=== PATIENT | female | born 1975 | race Caucasian/White ===

== ENCOUNTER → 2017-10-05 07:11 | Outpatient (CLI) | payer MEDICARE, MEDICAID, SELFPAY ==
[2017-09-09 12:45] VITALS: BMI 37.3
--- NOTE | 2017-10-05 | DI.MRI.S_ITS ---
PROCEDURE: MR LUMBAR SPINE WO CON INDICATIONS: LOW BACK PAIN AND RIGHT LEG SCIATICA TECHNIQUE: Noncontrast sagittal T1 spin echo and T2 fast echo, sagittal STIR, axial T1 and T2 fast spin echo through the lumbar spine. In cases with scoliosis, additional coronal T2 fast spin echo may be performed. COMPARISON: [facility], CR, SPINE LUMB 2 OR 3VW, 01/01/2016, 9:02. [facility], MR, L-SPINE WITHOUT CONTRAST, 06/15/2017, 15:07. [facility], CR, XR LUMBAR SPINE 2 OR 3 VIEWS, 09/23/2017, 15:40. [facility], CR, XR LUMBAR SPINE 2-3V, 09/09/2017, 8:48. FINDINGS: Image quality: Excellent. Alignment and Curvature: There is normal bony alignment. Bone Marrow: There is an intraosseous hemangioma in L3. No acute vertebral body compression fractures. There are surgical fusions at L4-L5 and L5-S1 Spinal Cord: Conus medullaris terminates at the L1-L2 level. Visualized cord demonstrates normal signal and size. Paraspinous Soft Tissues: No paravertebral masses. L1-L2: Normal appearance. L2-L3: Preserved disc height. Mild disc desiccation. There is mild broad posterior disc bulge. The central canal is minimally. Mild foraminal stenosis bilaterally, unchanged. L3-L4: Is it disc height and disc signal. There is mild posterior disc bulge. Mild bilateral facet arthropathy and hypertrophy of ligamentum flavum. The central canal is patent. No significant foraminal stenosis. No significant change. L4-L5: Discectomy and posterior fusion. No central canal stenosis. Minimal bilateral foraminal stenosis, changed. L5-S1: Discectomy and posterior fusion. No central canal stenosis. Minimal bilateral foraminal stenosis, changed. Sacrum: Fusion screws traversing the sacrum. The sacral plexus is normal. IMPRESSION: 1. Multilevel degenerative and postsurgical changes in the lumbar spine as described. 2. Minimal central canal stenosis at L2-L3, unchanged. 3. Mild foraminal stenosis at L2-L3 bilaterally, unchanged. Dictated by: Darya Lewis M.D. on 10/05/2017 at 8:26 Transcribed by: EZIO on 10/05/2017 at 8:34 Approved by: Darya Lewis M.D. on 10/05/2017 at 9:49
== END ==
PROVIDERS: PCP Family Medicine; Visit Provider Orthopaedic Surgery Orthopaedic Surgery of the Spine
DX: M54.40 Lumbago with sciatica, unspecified side (principal); M51.36 Other intervertebral disc degeneration, lumbar region
CPT/HCPCS: 72148

== ENCOUNTER → 2018-01-21 07:29 | Outpatient (CLI) | payer MEDICARE, MEDICAID, SELFPAY ==
[2017-09-09 12:45] VITALS: BMI 37.3
--- NOTE | 2018-01-21 | DI.MG.S_ITS ---
BILATERAL DIGITAL SCREENING MAMMOGRAM 3D/2D WITH CAD: 01/21/2018 CLINICAL: Baseline exam. Routine screening. Family history of breast cancer. No prior exams were available for comparison. The tissue of both breasts is heterogeneously dense. This may lower the sensitivity of mammography. Current study was also evaluated with a Computer Aided Detection (CAD) system. There is an oval equal density asymmetry with an obscured and indistinct margin in the left breast at 5 o'clock posterior depth. No other significant masses, calcifications, or other findings are seen in either breast. IMPRESSION: INCOMPLETE: NEEDS ADDITIONAL IMAGING EVALUATION The oval equal density asymmetry in the left breast is indeterminate. Mediolateral and spot compression views as well as additional views with possible ultrasound are recommended. This exam was interpreted at Station ID: [id number]. NOTE: For mammograms, a report in lay terms will be sent to the patient. Approximately 15% of breast malignancies will not be visualized mammographically. In the management of a palpable breast mass, a negative mammogram must not discourage biopsy of a clinically suspicious lesion. Electronically Signed By: Cole herrera/nae:01/21/2018 10:23:41 letter sent: Additional Imaging Needed ACR BI-RADS Category 0: Incomplete 3340F
== END ==
PROVIDERS: PCP Family Medicine; Visit Provider Family Medicine
DX: Z12.31 Encounter for screening mammogram for malignant neoplasm of breast (principal); Z80.3 Family history of malignant neoplasm of breast
CPT/HCPCS: 77063; 77067

== ENCOUNTER → 2018-02-03 12:42 | Outpatient (CLI) | payer MEDICARE, MEDICAID, SELFPAY ==
[2017-09-09 12:45] VITALS: BMI 37.3
--- NOTE | 2018-02-03 | DI.MG.S_ITS ---
UNILATERAL LEFT DIGITAL DIAGNOSTIC MAMMOGRAM 3D/2D WITH ADDITIONAL VIEWS: 02/03/2018 CLINICAL: Additional evaluation requested from prior study. Comparison is made [facility] The tissue of left breast is heterogeneously dense. This may lower the sensitivity of mammography. There is 1 cm oval equal density asymmetry with an indistinct margin in the left breast at 6 o'clock posterior depth. No other significant masses or calcifications are seen in the breast. IMPRESSION: INCOMPLETE: NEEDS ADDITIONAL IMAGING EVALUATION The 1 cm oval equal density asymmetry in the left breast is indeterminate. An ultrasound is recommended. This exam was interpreted at Station ID: [id number]. NOTE: For mammograms, a report in lay terms will be sent to the patient. Approximately 15% of breast malignancies will not be visualized mammographically. In the management of a palpable breast mass, a negative mammogram must not discourage biopsy of a clinically suspicious lesion. Electronically Signed By: Cole herrera/nae:02/03/2018 14:07:42 letter sent: Need Ultrasound ACR BI-RADS Category 0: Incomplete [id number]
--- NOTE | 2018-02-03 | DI.US.S_ITS ---
LIMITED ULTRASOUND OF LEFT BREAST: 02/03/2018 CLINICAL: Patient returns today to evaluate a density in the left breast. Comparison is made to exams dated: 02/03/2018 mammogram and 01/21/2018 mammogram - [facility]. Color flow and real-time ultrasound of the left breast 5-6 o'clock region were performed on the areas of interest. There is 0.6 cm x 0.3 cm x 0.3 cm irregular complicated cyst in the left breast at 5 o'clock middle depth. This irregular complicated cyst is hypoechoic with internal echoes and posterior acoustic enhancement. This correlates with mammography findings. Color flow imaging demonstrates that there is no vascularity present. IMPRESSION: PROBABLY BENIGN The 0.6 cm x 0.3 cm x 0.3 cm irregular complicated cyst in the left breast is consistent with a complicated cyst and is probably benign. Follow-up mammogram and ultrasound in 6 months is recommended. A follow-up mammogram and an ultrasound in 6 months is recommended to demonstrate stability. This exam was interpreted at Station ID: [id number]. Electronically Signed By: Cole herrera/nae:02/03/2018 16:55:55 letter sent: Followup Recommended Ultrasound BI-RADS: 3 Probably benign
== END ==
PROVIDERS: PCP Family Medicine; Visit Provider Family Medicine
DX: R92.8 Other abnormal and inconclusive findings on diagnostic imaging of breast (principal)
CPT/HCPCS: 76642; 77065; G0279

== ENCOUNTER 2018-02-15 07:53 | Day surgery (SDC) | payer MEDICARE, MEDICAID, SELFPAY ==
[2017-09-09 12:45] VITALS: BMI 37.3
--- NOTE | 2018-02-15 | PATH_ITS ---
[facility] Accession Number: [id number] . 01 Material submitted: . TRANSVERSE COLON POLYP @60CM . 02 Diagnosis: Transverse Colon, Polyp at 60 cm, Biopsy: Serrated lesion, favor sessile serrated adenoma. MRV/02/16/2018 . 02 Electronically signed: . Lucinda Oliver MD, Pathologist NPI- [id number] . 01 Gross description: . Received in one formalin-filled container labeled with the patient's name and labeled transverse colon polyp at 60 cm, are two 0.1-0.2 cm portions of tissue, entirely submitted in one cassette. ([id number]) /FRR . 02 Pathologist provided ICD-10: D12.3 . 02 CPT . 177275 Performed at: 01 [facility] [address] [id number] MD Cole Del Valle MD Phone: [phone] Performed at: 02 [facility] [place] [address] [place], [place] [id number] MD Galen Weber MD Phone: [phone]
[2018-02-15 08:43] VITALS: BP 154/87; PULSE 94; RESP 16; TEMP 36.7; O2SAT 97; BMI 32.8
[2018-02-15] MEDS: SODIUM CHLORIDE 0.9% 1,000 ML 200 ML IV (08:50)
[2018-02-15] MEDS: MIDAZOLAM 5 MG/5 ML VIAL IV (09:11)
[2018-02-15] MEDS: fentaNYL 250 MCG/5 ML INJ IV (09:12)
--- NOTE | 2018-02-15 09:47 | PM.OP.ENDO ---
Operative Date/Time/Diagnoses Date of procedure: 02/15/18 Time of procedure: 09:47 Post-op diagnosis: other (Colon polyp but otherwise normal colon and rectum) Procedure & Clinicians Study performed: 1. Sedation per surgeon 2. Colonoscopy with cold forceps polypectomy Same procedure as scheduled: Yes Indications: 42-year-old female with family history of colon cancer in her father diagnosed in his 50s, and she presents for colorectal screening today. Her last colonoscopy was 5 years ago. Colonoscopy is once again recommended. Surgeon: Adam Garcia Procedure Notes SCOAP/Timeout: Yes Procedure in detail: After obtaining informed consent, the patient was brought to the GI suite and placed in the left lateral decubitus position on the examination table. After placement of appropriate monitors, the patient was given incremental doses of Versed and Fentanyl until an appropriate level of sedation was achieved. A time out was held per SCOAP protocol. A digital rectal examination was performed and did not reveal any masses or obstructing lesions. The colonoscope was gently passed into the patient's anus and the entire colon navigated to the level of the cecum with minimal difficulty. Terminal ileum was intubated and noted to be grossly normal. Once in the cecum, the scope was withdrawn being sure to go before and beyond all mucosal folds and prominences and get an excellent examination. The findings are noted above. At the level of the rectal vault, the scope was retroflexed and the internal anal canal was examined. The scope was straightened and air aspirated from the colon. The instrument was removed from the patient's body and the procedure was concluded. The patient was allowed to awaken from sedation without difficulty and taken to the post-anesthesia care unit in good condition. Scope withdrawal time: 7:19 min Sedation minutes: 17 Findings: polyp Specimen(s): other (Transverse colon polyp at 60 cm) Complications: none Recommendations: Colonscopy in 5 years, High fiber diet and Will call with biopsy results Plan for aftercare: 1. Discharge home Follow up: as needed Disposition: PACU
[2018-02-15 09:51] VITALS: TEMP 36.8
--- NOTE | 2018-02-15 09:51 | PM.HP.1 ---
History of Present Illness Date Patient Seen: 02/15/18 Time Patient Seen: 09:51 Chief complaint: [id number] SCREENING COLONOSCOPY Narrative: Please note this history physical examination is a late entry. Actual document was done earlier this morning, but was inadvertently entered on the wrong patient chart. Correct patient is a 42-year-old female with family history in her father of colon cancer. He was diagnosed and treated for the disease in his early 50s. Patient has had prior colonoscopy. Most recent exam was 5 years ago. Patient is a relatively poor historian, and I do not have the records from that procedure. Her previous colonoscopies have all been performed at an outlying institution. She is uncertain whether she has personal history of colon polyps. Currently she denies any nausea, vomiting, loss of appetite, unexplained weight loss, abdominal pain, change in bowel habits, diarrhea, constipation, melena, hematochezia, or bright red blood per rectum. Patient History Medical History Bipolar 1 disorder, depressed, mild (Acute) Charcot Belkis Tooth muscular atrophy (Acute) Smoker (Acute) Surgical History History of bladder surgery (Acute) History of hysterectomy (Acute) History of laminectomy (Acute) S/P foot surgery, left (Acute) S/P foot surgery, right (Acute) Family & Social History Family History: Reviewed 02/15/18 by Adam Garcia MD Social History: household members spouse Tobacco & Substance use: Tobacco type cigarettes Smoking Status Current every day smoker alcohol intake frequency a few times a week Substance Use Type marijuana,prescription drug Meds Home Medications Medication Instructions Recorded Confirmed Type albuterol sulfate [Ventolin HFA] 2 puff INHALATION Q4-6H PRN 08/12/17 02/15/18 History bupropion HCl [Wellbutrin SR] 150 mg PO DAILY 08/12/17 02/15/18 History pregabalin [Lyrica] 150 mg PO TID 08/12/17 02/15/18 History acetaminophen 325 mg PO Q6HR PRN #0 tab 09/10/17 02/15/18 Rx fluoxetine [Prozac] 20 mg PO DAILY 02/15/18 02/15/18 History propranolol 10 mg PO BID 02/15/18 02/15/18 History Allergies Allergy/AdvReac Type Severity Reaction Status Date / Time codeine [CODEINE] Allergy Intermediate Itching Verified 02/15/18 08:53 oxycodone [OXYCODONE] Allergy Mild NAUSEA Verified 02/15/18 08:53 Review of Systems Review of Systems All systems reviewed & are unremarkable except as noted in HPI and below Exam Vital Signs (past 8 hours): - 02/15/18 08:43 Temperature 98.1 F Pulse Rate 94 H Respiratory Rate 16 Blood Pressure 154/87 H Pulse Oximetry 97 Oxygen Delivery Method Room Air Narrative Exam Narrative: Well-nourished well-developed mildly obese female lying comfortably on the gurney in no acute distress. Alert oriented x3. is at the bedside for my entire visit. Sclera nonicteric Chest clear to auscultation bilaterally. No crackles or wheezes. Grade 2 systolic ejection murmur which is chronic by the record. Abdomen soft, nondistended, nontender, no masses Extremities show joint deformities but no significant edema. Objective Labs Labs: No recent laboratory or radiographic studies review She did have general anesthesia for back surgery in August 2017 which he tolerated well without difficulty or complications. However, she has had no formal stress testing otherwise preoperatively per her account. Assessment & Plan Plan: Assessment/Plan Narrative: 42-year-old female with family history of colon cancer in her father. It has been 5 years since her last exam. She now requires colorectal surveillance. Colonoscopy is once again recommended. Technical details of the procedure were discussed. Risks, benefits, alternatives were explained. Risks including but not limited to sedation, aspiration, bleeding, pain, missed lesion, incomplete examination, need for further radiographic studies, colonic perforation, need for major abdominal surgery, and all attendant risks of major surgery were discussed in detail. All questions were answered to her satisfaction, and she voiced understanding. Consent was placed on the chart. We will proceed as above.
[2018-02-15 09:53] VITALS: BP 124/79; PULSE 95; RESP 16
--- NOTE | 2018-02-15 09:54 | PM.PREOP ---
Pre-operative Note Interval Note Pre-op Check: Yes History & Physical Reviewed by Physician, Yes Exam Performed and Yes History & Physical exam performed today by Physician Changes: No H&P completed within 30 days and has changed as indicated here:: Patient seen and examined in the preoperative area. History and physical examination is placed on the chart. Proceed with colonoscopy today as planned. ASA Class (for procedural sedation): II
== END 2018-02-15 10:10 | disposition home or self-care (01) ==
PROVIDERS: PCP Family Medicine; Visit Provider Surgery
PROC: 0DJD8ZZ Inspection of Lower Intestinal Tract, Via Natural or Artificial Opening Endoscopic (ICD-10-PCS; CPT 45378; principal; 2018-02-15 09:15)
DX: Z12.11 Encounter for screening for malignant neoplasm of colon (principal); F17.210 Nicotine dependence, cigarettes, uncomplicated; Z80.0 Family history of malignant neoplasm of digestive organs; D12.3 Benign neoplasm of transverse colon
CPT/HCPCS: 45380; 88305; 99152; J2250; J3010

== ENCOUNTER 2018-03-14 08:03 | Emergency (ER) | payer MEDICARE, MEDICAID, SELFPAY ==
[2017-09-09 12:45] VITALS: BMI 37.3
[2018-03-14 08:10] VITALS: BP 156/85; PULSE 80; RESP 16; TEMP 36.8; O2SAT 100; BMI 32.8
--- NOTE | 2018-03-14 08:13 | ED_ITS ---
HPI - General Adult General Chief complaint: Recheck/Abnormal Lab/Rx Stated complaint: WHOLE BODY IS FLARING UP Time Seen by Provider: 03/14/18 08:10 Source: patient Mode of arrival: ambulatory Limitations: no limitations History of Present Illness HPI narrative: Patient is a 42-year-old female with a history of Charcot Belkis Tooth neuropathy. Currently on Lyrica 150 mg 3 times a day. He is under the care of a neurologist. She was recently started on Keflex by her primary care doctor for ?cysts? and her lower abdomen and upper groin. She states she started these 4 days ago. She has 3 days remaining. She states that for the past several days she has had a ?flare? of the neuropathy that she gets because of the CMT. She did state she took a couple extra doses of her Lyrica. She also states that she has been under lot of stress recently because her daughter was just diagnosed with lung cancer. She has not talked to her neurologist. Related Data Home Medications Medication Instructions Recorded Confirmed albuterol sulfate [Ventolin HFA] 2 puff INHALATION Q4-6H PRN 08/12/17 02/15/18 bupropion HCl [Wellbutrin SR] 150 mg PO DAILY 08/12/17 02/15/18 pregabalin [Lyrica] 150 mg PO TID 08/12/17 03/14/18 fluoxetine [Prozac] 20 mg PO DAILY 02/15/18 02/15/18 propranolol 10 mg PO BID 02/15/18 02/15/18 Previous Rx's Medication Instructions Recorded acetaminophen 325 mg PO Q6HR PRN #0 tab 09/10/17 lorazepam [Ativan] 0.5 mg PO BID-TID PRN #7 tab 03/14/18 prednisone 60 mg PO DAILY 4 Days #12 tab 03/14/18 Allergies Allergy/AdvReac Type Severity Reaction Status Date / Time codeine [CODEINE] Allergy Intermediate Itching Verified 03/14/18 08:10 oxycodone [OXYCODONE] Allergy Mild NAUSEA Verified 03/14/18 08:10 Review of Systems Constitutional Reports fatigue, Denies fever(s) and Reports malaise Eyes Denies diplopia and Denies itchy eyes ENT Ears, Nose, Mouth, and Throat: Denies lip swelling, Denies sinus pressure, Denies sore throat and Denies throat swelling Comments: Burning in her left ear canal Cardiovascular Denies chest pain and Denies dyspnea Respiratory Denies dyspnea Gastrointestinal Gastrointestinal: Denies abdominal pain, Denies change in bowel habits, Denies nausea and Denies vomiting Genitourinary Denies dysuria and Denies vaginal discharge Musculoskeletal Reports myalgias and Reports arthralgias Integumentary/Breasts Reports pruritus Comments: Cyst on her lower abdomen and upper thighs. ?Burning? sensation all over Neurologic Comments: Anxiety Endocrine Reports fatigue Hematologic/Lymphatic Comments: Not on anticoagulation Allergic/Immunologic Denies urticaria, Denies itchy eyes, Denies lip swelling and Denies throat swelling PFSH Social History household members: spouse Smoking Status: Current every day smoker Exam Initial Vital Signs Initial Vital Signs: Vital Signs Temperature 98.2 F 03/14/18 08:10 Pulse Rate 80 03/14/18 08:10 Respiratory Rate 16 03/14/18 08:10 Blood Pressure 156/85 H 03/14/18 08:10 Pulse Oximetry 100 03/14/18 08:10 Const General: cooperative, healthy appearing, comfortable, well developed, well groomed and No acute distress Orientation: alert, awake and oriented x3 HENMT Head: normal to inspection and normocephalic Ears: TM's normal bilaterally Resp Effort & Inspection: normal respiratory effort Auscultation: clear to auscultation bilaterally Cardio Rate: regular rate Rhythm: regular rhythm Pulses: radial pulses present GI Inspection: non-distended Back/Spine/Pelvis Back: No back tenderness and No CVA tenderness Skin Other: No rashes. Patient does have several small well demarcated lumps in her lower abdomen. She states these that what her upper thigh ?cysts? look like. Minimal surrounding erythema. No drainage. Neuro General: alert, awake and oriented x3 Extrem General: normal to inspection and capillary refill normal Psych Appearance: grossly normal and well kempt Course Orders Ordered: Lorazepam (Ativan) 1 mg PO NOW ONE Stop: 03/14/18 08:47 Prednisone (Deltasone) 60 mg PO NOW ONE Stop: 03/14/18 08:47 Vital Signs - 8 hr 03/14/18 08:10 Temperature 98.2 F Pulse Rate 80 Respiratory Rate 16 Blood Pressure 156/85 H Pulse Oximetry 100 Medical Decision Making MDM Narrative Medical decision making narrative: Patient is very well-appearing. She has had a ?flare? of her CMT for the past several days. This does correspond with starting of the Keflex however according to up-to-date and the CMT web site Keflex is not a medication that typically causes a flare in CMT. Patient also states that she did have some symptoms prior to starting the antibiotic. She specifically told me that pain medications do not work for her. She seems very reasonable about the symptoms that she was having. She has been on prednisone in the past supple start her on a short course of some prednisone. She did state that she has been under lot of stress recently which can make CMT worse. Will also give her short course of Ativan. She is on propanolol already. She was instructed to contact her neurologist tomorrow for follow-up. She was given return precautions. She expressed understanding and agreement plan. Discharge Plan Departure Patient Disposition: Home Clinical Impression: Poxmbvs-Hkrnq-Xqldp disease, Anxiety Instructions: Rmpcovj-Inwjj-Efktn Disease, Anxiety Disorders Activity Restrictions/Additional Instructions: Take the medications as directed. Call your neurologist tomorrow for follow- up. Return to the emergency department for any new or worsening symptoms. You were given your 1st dose of prednisone here in the emergency department. The next dose will be tomorrow ThursdayMarch 15. Prescriptions: New prednisone 20 mg tablet 60 mg PO DAILY 4 Days Qty: 12 RF: 0 lorazepam [Ativan] 0.5 mg tablet 0.5 mg PO BID-TID PRN (Reason: anxiety) Qty: 7 RF: 0 No Action bupropion HCl [Wellbutrin SR] 150 mg Tablet Extended Release 12 Hr 150 mg PO DAILY RF: 0 albuterol sulfate [Ventolin HFA] 90 mcg/actuation Hfa Aerosol Inhaler 2 puff INHALATION Q4-6H PRN (Reason: COPD/Emphysema) RF: 0 pregabalin [Lyrica] 75 mg Capsule 150 mg PO TID RF: 0 acetaminophen 325 mg Tablet 325 mg PO Q6HR PRN (Reason: Pain, Mild) Qty: 0 RF: 0 propranolol 10 mg Tablet 10 mg PO BID RF: 0 fluoxetine [Prozac] 20 mg Capsule 20 mg PO DAILY RF: 0
[2018-03-14 09:00] VITALS: BP 123/91; PULSE 72; O2SAT 99
[2018-03-14] MEDS: LORazepam 0.5 MG TABLET PO (09:08)
[2018-03-14] MEDS: predniSONE 20 MG TABLET 60 MG PO (09:08)
[2018-03-14 09:34] VITALS: BP 138/87; PULSE 70; RESP 20; O2SAT 99
== END 2018-03-14 09:34 | disposition home or self-care (01) ==
PROVIDERS: Emergency Provider Emergency Medicine; PCP Family Medicine
DX: G60.0 Hereditary motor and sensory neuropathy (principal); F41.9 Anxiety disorder, unspecified
CPT/HCPCS: 99282; 99283

== ENCOUNTER → 2018-05-12 08:56 | Outpatient (CLI) | payer MEDICARE, MEDICAID, SELFPAY ==
[2017-09-09 12:45] VITALS: BMI 37.3
--- NOTE | 2018-05-12 | DI.MRI.S_ITS ---
PROCEDURE: MR HEAD/BRAIN WO/W CON INDICATIONS: PARESTHESIAS TECHNIQUE: Noncontrast axial T1 spin echo, axial T2 fast spin echo, sagittal and axial FLAIR, coronal T2 fast spin echo, axial gradient echo, axial diffusion and ADC through the brain. After the administration of contrast, axial and coronal 3D VIBE or T1 spin echo with fat saturation through the brain. COMPARISON: None. FINDINGS: Image quality: Excellent. CSF Spaces: Basal cisterns are patent. No extra-axial fluid collections. Ventricles are normal in size and shape. Brain: No midline shift. No intracranial bleeds or masses. No abnormal intracranial enhancement. The brainstem appears normal. Diffusion-weighted images demonstrate no acute ischemic insults. No chronic ischemic insults. Normal intravascular flow voids are present. Skull and face: Calvarial marrow is normal in signal. Orbits appear normal. Sinuses: Sinuses and mastoids appear clear. IMPRESSION: 1. No explanation for paresthesias. 2. No acute process. No recent infarct. Dictated by: Elissa Aburto M.D. on 05/12/2018 at 14:33 Approved by: Elissa Aburto M.D. on 05/12/2018 at 15:16
== END ==
PROVIDERS: Visit Provider Psychiatry & Neurology Neurology
DX: R20.2 Paresthesia of skin (principal)
CPT/HCPCS: 70553; A9579

== ENCOUNTER → 2018-08-20 09:03 | Outpatient (CLI) | payer MEDICARE, MEDICAID, SELFPAY ==
[2017-09-09 12:45] VITALS: BMI 37.3
--- NOTE | 2018-08-20 | DI.MG.S_ITS ---
UNILATERAL LEFT DIGITAL DIAGNOSTIC MAMMOGRAM 3D/2D SHORT-TERM FOLLOW-UP: 08/20/2018 CLINICAL: Patient returns for a 6 month follow up of the left breast. Comparison is made to exams dated: 02/03/2018 mammogram and 01/21/2018 mammogram - [facility]. The tissue of left breast is heterogeneously dense. This may lower the sensitivity of mammography. There is a stable irregular asymmetry with an indistinct margin in the left breast at 6 o'clock posterior depth. No other significant masses or calcifications are seen in the breast. IMPRESSION: INCOMPLETE: NEEDS ADDITIONAL IMAGING EVALUATION The stable irregular asymmetry in the left breast is indeterminate. A targeted ultrasound of the left breast is recommended and will be performed immediately following this exam. This exam was interpreted at Station ID: [id number]. NOTE: For mammograms, a report in lay terms will be sent to the patient. Approximately 15% of breast malignancies will not be visualized mammographically. In the management of a palpable breast mass, a negative mammogram must not discourage biopsy of a clinically suspicious lesion. Electronically Signed By: Isha Kramer M.D. lk/:08/20/2018 10:04:18 ACR BI-RADS Category 0: Incomplete [id number]
--- NOTE | 2018-08-20 | DI.US.S_ITS ---
ULTRASOUND OF LEFT BREAST: 08/20/2018 CLINICAL: 6 month f/u lt breast. Comparison is made to exams dated: 08/20/2018 mammogram, 02/03/2018 ultrasound, 02/03/2018 mammogram, and 01/21/2018 mammogram - [facility]. Color flow ultrasound of the left breast was performed on the areas of interest. Smith scale images of the real-time examination were reviewed. The 0.6 cm x 0.2 cm x 0.3 cm cluster of microcysts in the left breast at 5 o'clock posterior depth is unchanged. IMPRESSION: PROBABLY BENIGN The 0.6 cm x 0.2 cm x 0.3 cm cluster of irregular microcysts in the left breast is probably benign. A follow-up mammogram and an ultrasound in 6 months is recommended to demonstrate stability. This exam was interpreted at Station ID: [id number]. SUMMARY: The patient will be due for her bilateral mammogram at this time. Electronically Signed By: Isha ayala/:08/20/2018 11:16:41 letter sent: Followup Recommended Ultrasound BI-RADS: 3 Probably benign
== END ==
PROVIDERS: PCP Physician Assistant Medical; Visit Provider Physician Assistant Medical
DX: R92.8 Other abnormal and inconclusive findings on diagnostic imaging of breast (principal); N64.89 Other specified disorders of breast
CPT/HCPCS: 76642; 77065; G0279

== ENCOUNTER → 2018-10-20 08:50 | Outpatient (CLI) | payer MEDICARE, MEDICAID, SELFPAY ==
[2017-09-09 12:45] VITALS: BMI 37.3
--- NOTE | 2018-10-20 | DI.RAD.S_ITS ---
PROCEDURE: FL BARIUM SWALLOW W SPEECH INDICATIONS: Other dysphagia TECHNIQUE: Examination was conducted in conjunction with speech pathology per standard protocol. In the lateral projection, filming was performed of the patient swallowing. AP projection filming may also be performed with patient swallowing. COMPARISON: None. FINDINGS: Function: The oral preparatory phase appears normal, with proper containment. The subsequent oral propulsive phase, pharyngeal phase, and esophageal phase of swallowing also appear normal with all proffered substances. There was slight episodic superior position laryngotracheal penetration at several points during the examination but no aspiration. No pathologic vallecular pooling. Morphology: No cricopharyngeal bar is identified. No cervical esophageal webs. No Zenker's diverticulum. No strictures. A 13 mm calibrated barium tablet crossed freely through the esophagus into the gastric lumen. IMPRESSION: Slight episodic superior penetration of barium contrast into the upper glottic area, without aspiration. Please also refer to the dedicated speech therapy report that will be independently generated. Dictated by: Martínez Mitchell M.D. on 10/20/2018 at 11:39 Approved by: Martínez Mitchell M.D. on 10/20/2018 at 11:41
--- NOTE | 2018-10-27 17:50 | ST.SWALLOW ---
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 Jack Hood Reason for Referral Dysphagia Setting Setting Outpatient Care Patient Information Identification Type Name ID Card Patient History 43-yr-old female with complaints of swallow difficulty over the last year, including sensations of meats and pills sticking in her throat and c/o choking. The pt reports family history of swallow problems including a grandmother who has pockets in her throat where things would get stuck and mother with trouble swallowing. 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 Additionally, she reports having had 3 of 4 parathyroids removed ~2-3 yrs ago. Subjective Observations The pt arrived on time and provided case history. Patient Positioning Position View Lat-A/P Imaging Lateral View Textures Administered Trials Presented Thin Liquid via Spoon Thin Liquid via Cup Klag[place] Liquid via Spoon Klagetoh Liquid via Cup Honey Liquid via Spoon Dysphagia Blenderized Textures Regular Textures Oral Phase Source: MBSIMP (TM) (C) Bolus Specific Scoring Grid Lip Closure No Impairment (WNL) Tongue Control During Bolus Hold WFL Bolus Prep/Mastication WFL Bolus Transport/Lingual Motion No Impairment (WNL) A/P Lingual Propulsion Delay Yes: Pudding trial only. Pt struggled with taste/texture. Oral Residue WFL Residue Clearing WFL Nasal Regurgitation No Additional Oral Phase Observations Oral Peripheral Exam: Symmetrical features WNL of strength, coordination and ROM . Pt has natural dentition with some upper and lower molars missing bilaterally. Soft palate elevates upon phonation. Mildly reduced hyolaryngeal elevation and excursion observed via palpation and under fluoroscopy. Oral Phase: Bolus containment, prep, a/p propulsion, and clearance all WNL with exception of pudding trial, during which lingual rocking and delayed swallow trigger was observed. The pt exhibited and expressed difficulty with the taste and texture of the trial, accounting for the disordered manipulation. Mildly extended mastication observed with cookie trial secondary to missing dentition ; otherwise WNL. Pharyngeal Phase Source: MBSIMP (TM) (C) Bolus Specific Scoring Grid Delayed Initiation of Pharyngeal Swallow Yes: Pudding trial only. Pt struggled with taste/texture. Soft Palate Elevation No Impairment (WNL) Tongue Base Strength/Range of Motion WFL Residue Along the Tongue Base Yes Clearance of Residue Along Tongue Base WFL Laryngeal Elevation Mild Impairment Anterior Hyoid Movement Mild Impairment Epiglottic Range of Motion Mild Impairment Vallecular Residue Yes: Trace to mild; improved with increased bolus bulk Clearance of Vallecular Residue Mild Impairment Laryngeal Vestibular Closure Mild Impairment Pharyngeal Stripping Wave WFL Pharyngeal Contraction No Impairment (WNL) Posterior Pharyngeal Wall Residue No Upper Esophageal Sphincter Opening No Impairment (WNL) Residue in the Pyriform Sinuses No Esophageal Clearance Upright Position No Impairment (WNL) Pharyngoesophageal Backflow Observed No Additional Pharyngeal Phase Observations Flash penetration of thin liquid above VFs without laryngeal residue observed during tsp trials; trace laryngeal residue noted with single and consecutive cup sips. No cough response elicited by pt. No aspiration observed. No significant benefit from chin tuck. The pt tolerated all other liquid and solid trials without penetration or aspiration. Pharyngeal residue present with thin and NTL trials only; excellent clearance of honey-thick, pudding and cookie trials. Reduced hyolaryngeal elevation and anterior excursion results in incomplete epiglottic inversion and trace to mild residue at vallecula, which mostly clears with subsequent swallows. Delayed swallow trigger (to vallecula) noted with pudding only; otherwise WNL. A/P View Textures Administered Trials Presented Klagetoh Liquid via Cup Pudding Thick Liquid via Spoon Barium Tablet A/P View Observations Pharyngeal Contraction No Impairment (WNL) Esophageal Function No Impairment (WNL) Esophageal Clearance Upright Position No Impairment (WNL) Additional Observations 13mm barium tablet passed to stomach without difficulty. Clinical Impressions Dysphagia Type Mild Pharyngeal Dysphagia Findings Mild pharyngeal dysphagia secondary to reduced hyolaryngeal elevation and anterior excursion, resulting in reduced airway closure, penetration of thin liquids, and reduced epiglottic inversion. Penetration was silent in nature. No aspiration observed. Rehabilitation Potential Excellent Patient Appropriate for Therapy Yes Recommendations Diet Liquids Order Thin Diet Order Regular Medication Recommendation As Tolerated Aspiration Precautions Recommended Precautions Upright at 90 Degrees Small Bites/Sips Supraglottic Swallow Additional Precautions Single sips only. Minimize distractions during oral intake. Treatment Plan Therapy Recommendations Outpatient Speech Therapy Other Additional Therapy Recommendations Hyolaryngeal exercises Compensatory Strategies Recommendations Sitting Upright (90 deg) Supraglottic Swallow Small Bites and Sips Short Term Goals Pt will perform compensatory swallow strategies independently to reduce risk of aspiration. Pt will perform hyolaryngeal exercises to improve airway closure and epiglottic inversion for safe oral consumption. Property Insurance Claims Examiner Goals Pt will consume thin liquids and regular diet without s/sx of aspiration. Placement Recommendation After Discharge Home
== END ==
PROVIDERS: PCP Physician Assistant Medical; Visit Provider Otolaryngology
DX: R13.19 Other dysphagia (principal)
CPT/HCPCS: 74230; 92611

== ENCOUNTER → 2019-04-27 10:02 | Outpatient (CLI) | payer MEDICARE, MEDICAID, SELFPAY ==
[2019-04-08 09:10] VITALS: BMI 37.3
--- NOTE | 2019-04-27 | DI.US.S_ITS ---
LIMITED ULTRASOUND OF LEFT BREAST: 04/27/2019 CLINICAL: 6 month follow-up of cluster micro-cysts. Comparison is made to exams dated: 04/27/2019 mammogram, 08/20/2018 ultrasound, 08/20/2018 mammogram, 02/03/2018 ultrasound, 02/03/2018 mammogram, and 01/21/2018 mammogram - [facility]. Color flow and real-time ultrasound of the left breast 5-6 o'clock region were performed. Smith scale images of the real-time examination were reviewed. There is a 0.4 cm x 0.4 cm x 0.6 cm irregular micro cyst cluster in the left breast at 5 o'clock posterior depth 6 cm from the nipple. There is central echogenic tissue, likey fat. No increased vascularity. This abnormality is not significantly changed and correlates with mammography findings. IMPRESSION: PROBABLY BENIGN The 0.4 cm x 0.4 cm x 0.6 cm irregular micro cyst in the left breast is stable. This is almost certainly benign. Completion of 2 year surveillance with a 12 month follow up ultrasound at the time of screening mammography is recommended. Findings and recommendations were conveyed to the patient at time of exam. This exam was interpreted at Station ID: [id number]. Electronically Signed By: Allie villalta/:04/27/2019 11:41:39 letter sent: Followup Recommended Ultrasound BI-RADS: 3 Probably benign
--- NOTE | 2019-04-27 | DI.MG.S_ITS ---
BILATERAL DIGITAL DIAGNOSTIC MAMMOGRAM 3D/2D SHORT-TERM FOLLOW-UP: 04/27/2019 CLINICAL: Patient returns for a late 12 month follow up of the left breast, due for bilateral imaging. Comparison is made to exams dated: 08/20/2018 mammogram, 02/03/2018 mammogram, and 01/21/2018 mammogram - [facility]. The tissue of both breasts is heterogeneously dense. This may lower the sensitivity of mammography. There is a stable irregular asymmetry with an indistinct margin in the left breast at 5 o'clock posterior depth. No other significant masses, calcifications, or other findings are seen in either breast. IMPRESSION: INCOMPLETE: NEEDS ADDITIONAL IMAGING EVALUATION A targeted ultrasound of the left breast is recommended for confirmation of stability and will be performed immediately following this exam. This exam was interpreted at Station ID: [id number]. NOTE: For mammograms, a report in lay terms will be sent to the patient. Approximately 15% of breast malignancies will not be visualized mammographically. In the management of a palpable breast mass, a negative mammogram must not discourage biopsy of a clinically suspicious lesion. Electronically Signed By: Allie villalta/:04/27/2019 10:55:48 ACR BI-RADS Category 0: Incomplete [id number]
== END ==
PROVIDERS: PCP Physician Assistant Medical; Visit Provider Physician Assistant Medical
DX: R92.8 Other abnormal and inconclusive findings on diagnostic imaging of breast (principal); N60.02 Solitary cyst of left breast
CPT/HCPCS: 76642; 77066; G0279

== ENCOUNTER → 2019-10-18 12:19 | Outpatient (CLI) | payer MEDICARE, MEDICAID, SELFPAY ==
[2019-04-08 09:10] VITALS: BMI 37.3
--- NOTE | 2019-10-18 | DI.CT.S_ITS ---
PROCEDURE: CT LUMBAR SPINE WO CON INDICATIONS: Spinal instabilities, lumbar region TECHNIQUE: Noncontrast 3 mm thick sections acquired from the T12 level to the sacrum. Sagittal and coronal reformats were constructed. For radiation dose reduction, the following was used: automated exposure control. COMPARISON: [facility], MR, MR LUMBAR SPINE WO CON, 10/05/2017, 7:41. [facility], CR, XR LUMBAR SPINE WITH FLEXION EXTENSION 5 VIEWS, 10/12/2019, 11:00. FINDINGS: Image quality: Excellent. Bones: Posterior fusion is present from L4-S1 and disc spacers at L4-5, L5-S1. Hardware is intact without fracture or periprosthetic lucency. There is good anatomic alignment. There is trace retrolisthesis of L2 on L3. No osseous fractures or suspicious osseous lesions. Mild disc bulges present at L2-3, L3-4. No spinal stenosis. Minimal mild bilateral foraminal narrowing L2-3, mild to moderate bilateral foraminal narrowing L3-4, minimally progressive, minimal bilateral L4-5, mild right and minimal left L5-S1. Soft tissues: No retroperitoneal masses or hematomas. Visualized aorta is normal in caliber. IMPRESSION: Postsurgical and degenerative changes as above. Hardware is intact. Dictated by: Cherry Camarillo M.D. on 10/18/2019 at 17:22 Approved by: Cherry Camarillo M.D. on 10/18/2019 at 17:32
== END ==
PROVIDERS: PCP Physician Assistant Medical; Referring Provider Orthopaedic Surgery Orthopaedic Surgery of the Spine; Visit Provider Orthopaedic Surgery Orthopaedic Surgery of the Spine
DX: M53.2X6 Spinal instabilities, lumbar region (principal); M51.26 Other intervertebral disc displacement, lumbar region; Z98.1 Arthrodesis status
CPT/HCPCS: 72131

== ENCOUNTER → 2019-12-22 07:41 | Outpatient (CLI) | payer MEDICARE, MEDICAID, SELFPAY ==
[2019-04-08 09:10] VITALS: BMI 37.3
[2019-12-22 08:50] LABS: Add Manual Diff / Slide Review NO; Basophils Absolute Auto 100 /uL (0-100); Basophils Percent Auto 1.1 % (0-2); Eosinophils Absolute Auto 200 /uL (0-450); Eosinophils Percent Auto 2.2 % (2-4); Hematocrit 43.1 % (36-46); Lymphocytes Absolute Auto 2500 /uL (1100-4500); Lymphocytes Percent Auto 25.6 % (25-40); Mean Corpuscular HGB Conc 32.6 % (30-36); Mean Corpuscular Hemoglobin 28.3 PG (26-34); Mean Corpuscular Volume 86.9 fL (80-100); Monocytes Absolute Auto 400 /uL (0-900); Monocytes Percent Auto 4.2 % (3-14); Neutrophils Absolute Auto 6500 /uL (1500-7000); Neutrophils Percent Auto 66.9 % (50-75); Platelet Count 250 X10^3/uL (150-400); Red Blood Cell Count 4.95 X10^6/uL (4.0-5.2); Red Cell Distribution Width 15.1 % (11.6-14.8); White Blood Cell Count 9.7 X10^3/uL (4.5-11.0)
== END ==
PROVIDERS: Referring Provider Orthopaedic Surgery Orthopaedic Surgery of the Spine; Visit Provider Orthopaedic Surgery Orthopaedic Surgery of the Spine
DX: Z01.812 Encounter for preprocedural laboratory examination (principal); Z01.818 Encounter for other preprocedural examination
CPT/HCPCS: 36415; 85025; 93005

== ENCOUNTER → 2020-01-06 08:13 | Outpatient (CLI) | payer MEDICARE, MEDICAID, SELFPAY ==
[2019-04-08 09:10] VITALS: BMI 37.3
[2020-01-08 15:19] LABS: COVID19 Sendout Not Detected (Not Detect)
== END ==
PROVIDERS: Visit Provider Physician Assistant
DX: Z11.59 Encounter for screening for other viral diseases (principal)
CPT/HCPCS: 87635

== ENCOUNTER 2020-01-09 05:55 | Inpatient (IN) | payer MEDICARE, MEDICAID, SELFPAY ==
[2019-04-08 09:10] VITALS: BMI 37.3
[2020-01-03 08:50] VITALS: BMI 39.2
[2020-01-09] VITALS (20 sets, daily range): BP systolic 114–149; BP diastolic 70–100; PULSE 84–104; RESP 2–24; TEMP 36.4–36.7; O2SAT 92–98; BMI 39.4
[2020-01-09] MEDS: LACTATED RINGERS 1,000 ML 42 ML IV ×2 (07:31→09:31)
[2020-01-09] MEDS: CEFAZOLIN 1 GM/50 ML FROZ.PIGGY IV (07:45)
[2020-01-09] MEDS: CEFAZOLIN 2 GM/100 ML FROZ.PIGGY IV ×3 (07:45→23:30)
--- NOTE | 2020-01-09 07:49 | PM.PREOP ---
Pre-operative Note COVID-19 COVID-19 status: Negative Result date/Date tested (Pos, Neg/Pending): 01/07/20 Interval Note History & Physical reviewed/Exam performed by Physician: Yes Changes to H&P: No
--- NOTE | 2020-01-09 08:00 | DI.RAD.S_ITS ---
PROCEDURE: XR LUMBAR SPINE 2-3V INDICATIONS: L3-4 TLIF. 4-5-S1 OLD TECHNIQUE: 2 views of the lumbar spine were acquired. COMPARISON: [facility], JASWINDER, XR LUMBAR SPINE 2-3V, 09/09/2017, 8:48. FINDINGS: 2 spot fluoroscopic intraoperative views demonstrating spinal fixation hardware the paraspinal valencia and pedicle screws from L3-S1. Hardware appears intact. Interbody cage grafts also noted. Expected intraoperative alignment Dictated by: Koko Walker M.D. on 01/09/2020 at 11:46 Approved by: Koko Walker M.D. on 01/09/2020 at 11:48
--- NOTE | 2020-01-09 08:30 | SUR.OPER ---
Prone on spine table, head in foam head support, padded chest and pelvic supports, gel pad at knees, lower legs supported by pillows; nipples, genitalia and toes free of pressure, arms secured on foam padded arm boards at <90 degrees abduction. Tape over blanket at thigh secured to table.
[2020-01-09] MEDS: BUPIVACAINE 0.25% W/ EPI 30 ML VIAL INJ (08:42)
[2020-01-09] MEDS: BUPIVACAINE LIPOSOME 266 MG/20 ML VIAL INJ (08:43)
--- NOTE | 2020-01-09 11:38 | PM.OP.1 ---
Operative Date/Time/Diagnoses Date of procedure: 01/09/20 Time of procedure: 08:07 Pre-op diagnosis: 1. L3-4, L4-5, L5-S1 spinal stenosis 2. Lumbar broken hardware 3. L3-4, L4-5, L5-S1 spondylosis Post-op diagnosis: same Procedure & Clinicians Procedure: 1. L3-4 Postero-lateral and posterior interbody fusion 2. L3-4 interbody cage placement. 3. L3-4 decompressive laminectomy with bilateral facetecomies 4. L3-4 L4-5 L5-S1 Posterior segmental instrumentation 5. L4-5 L5-S1 posterior segmental hardware removal 6. L4-5 L5-S1 exploration of fusion with left hemilaminectomy 7. L4-5 posterolateral fusion 8. [place] of bone marrow from iliac crest 9. Utilization of microsurgical technique and operating microscope Same procedure as scheduled: Yes Indications: Patient has been having chronic back pain and worsening lumbar radiculopathy. Patient had prior fusion surgery and has been doing well until the last 6 months. Repeat x-ray shows a broken fusion valencia. Patient also has been having worsening symptoms with back pain leg pain. Patient failed multiple conservative management with worsening pain weakness and numbness in her lower extremity. Patient has been having difficulty performing activity of daily living. After discussing risks benefits of treatment options, patient elected proceed with surgery. Surgeon: Karyna Beth Animal Physiology Teacher: Jenni Amato Click Yes if Unassisted: No Anesthesia Type: General Operative Notes Closure Type: primary Specimen(s): none sent Prosthetic devices, grafts, tissues, transplants, or devices: Globus revolve screws, Rise cage Applied: catheter Estimated Blood Loss (mL): 150 Blood products transfused: none Procedure in detail: Patient was seen in the preoperative area. Risks and benefits of the surgery was discussed with the patient. Informed consent was obtained from the patient and placed in the chart. Surgical site was marked. Patient was taken to the operative room. General anesthesia was administered. Prophylactic antibiotic was given to the patient less than 30 min before the incision was made. Patient was placed into a prone position on the Dominic table. Patient's back was then prepped and draped in the sterile fashion. Time-out was performed at this time. Using patient's previous scar incision was made over the L3-4 L4-5 L5-S1 interval on the left side. Fascia was incised in line with skin incision. Patient's previously placed hardware over the L4-5 L5-S1 level was identified by dissecting down to the level the hardware using a Bovie and a Dumont. The locking caps which was removed using globus screwdriver. The locking valencia was then removed from the t[place]ips of the pedicle screws using a Chet. The pedicle screws were then removed using the screwdriver. The screws were found to have good purchase. The Globus and MARS retractors was then placed into the wound and docked onto the L3 lamina using C-arm guidance. Using microsurgical technique and operating microscope a laminectomy facetectomy was performed by removing the L3 lamina and the L3-4 facet. The disc space at L3-4 level was identified next. Patient was found have severe foramen and central stenosis during the process of decompression. The foramen and central canal was fully decompressed after laminectomy facetectomy was completed. And a total diskectomy was performed at L3-4 level. The endplates were decorticated using a rasp and shaver. The total diskectomy and decortication was performed at L3-4 level in order to to accomplish a L3-4 fusion. The local bone from the laminectomy and facetectomy was saved for local bone grafting. After the total diskectomy and decortication was completed, Globus viacell bone graft material was combined with local bone that was harvested earlier. At this time, a separate skin is incision was made over the iliac crest. A Jamshidi needle was inserted into the iliac crest through a separate skin incision. 5 cc of bone marrow aspiration was obtained through the separate skin incision using a Jamshidi needle from the iliac crest. The bone marrow aspiration was combined with local bone and the via cell bone grafting material. The bone grafting material was placed into the L3-4 interbody space along with a expandable cage. The cage was expanded to its maximum height using the torque limiting screwdriver. At this time a mirror image incision was made on the right side. The fascia was incised in line with the skin incision. Patient's previously placed hardware on the right side was then removed in the same fashion as it was on the left side. The hardware was also found to have good purchase with the exception of the fusion valencia. The fusion mass on the right side was exposed by performing a right-sided hemilaminectomy at L4-5 L5-S1 level. The hemilaminectomy was performed using the Janarison rongeur to undercut the lamina as well removing additional epidural scar tissue for purpose of decompressing the epidural space. The fusion mass was explored and was found have visible motion indicating pseudoarthrosis at L4-5 level. The fusion was found to be solid at L5-S1 level. The fusion valencia on the right side was also found to be broken between the L4 and L5 pedicle screw. Globus MARS retractor was inserted and docked onto the L3-4 L4-5 posterolateral gutter. Using the power drill, posterior-lateral decortication was performed at L3-4 L4-5 level until bleeding cortical bone was identified. The remaining bone grafting material was placed into the L3-4 L4-5 posterior lateral gutter he order to accomplish posterolateral fusion at the L3-4 L4-5 level. Using the double C-arm technique, pedicle screws were placed into the L3-L4 L5 and S1 pedicles bilaterally. This was done by placing the Jamshidi needle into the pedicles, then placing the guidewires over the Jamshidi needle, and finally placing the cannulated screws over the guidewires bilaterally. After the pedicle screws were placed, 2 titanium rods was locked into the heads of the pedicle screws using locking caps and torque limiting screwdriver. After all the hardware was placed, and confirmed with AP and lateral C-arm imaging, the wound was then irrigated with sterile normal saline and packed with Ray-Louis gauze for 3 min to accomplish hemostasis. After the gauze was removed the deep fascia was closed with #1 Vicryl suture. The subcutaneous layer was closed with 2-0 Vicryl. The skin was closed with skin annelise. Patient tolerated the procedure well. There were no complications. Complications: none Post-operative Condition: stable Disposition: PACU Plan for aftercare: Admit to inpatient hospital
[2020-01-09] MEDS: fentaNYL 100 MCG/2 ML INJ IV ×2 (12:23→12:55)
[2020-01-09] MEDS: HYDROMORPHONE 2 MG INJ IV ×3 (12:33→13:10)
[2020-01-09] MEDS: ALBUTEROL 2.5 MG/3 ML NEB (ADULT) INH (13:11)
[2020-01-09] MEDS: OXYCODONE/ACETAMINOPHEN 5/325 TABLET 1 TAB PO (13:17)
--- NOTE | 2020-01-09 13:41 | SUR.PHASEI ---
1305 late entry audible insp wheezes, talked to patient; states that she has COPD, denies O2 use at home, states that she uses an inhaler. Order obtained for nebulizer. 1325 Lungs clear after treatment; pt had fallen asleep and dropped the nebulizer so it is unclear how much of the treatment she received. 1335 Report called to DARIO Smith. Pt dozing intermittently, continues to rate pain 5/10; appears very comfortable. Backpack and clothing bag to the room with her; will be taken by other staff
--- NOTE | 2020-01-09 14:00 | SUR.PHASEI ---
0603 late entry Synopsis - pt recovered well from surgery; medicated intermittently for c/o back pain 08/27. Shifted position and repositioned multiple times to aid in comfort, propped with pillow behind back and between knees as needed. Position of bed also changed. Tolerated PO intake well without any nausea. See Mar for pain status. Moves easily in the bed without moaning.
[2020-01-09] MEDS: SODIUM CHLORIDE 0.9% 1,000 ML 100 ML IV (14:54)
[2020-01-09] MEDS: GABAPENTIN 300 MG CAPSULE PO (15:42)
[2020-01-09] MEDS: HYDROCODONE/ACET 5/325 TABLET 2 TAB PO (17:01)
[2020-01-09] MEDS: ONDANSETRON 4 MG/2 ML INJ IV ×2 (17:26→23:30)
--- NOTE | 2020-01-09 17:27 | PT.IIE ---
Addendum entered and electronically signed by Shweta Moreno, PT 01/09/20 17:28: shoes on for all OOB mobility Original Note: Current Diagnoses Spinal stenosis, lumbar region without neurogenic claudication (01/09/20) Other mechanical complication of other internal orthopedic devices, implants and grafts, initial encounter (01/09/20) Surgery Performed Operation Date: 01/09/20 07:45 Actual Procedures p L3-4 TLIF,L4-S1 lumbar HWR,exploration of fusion,repeat laminectomy,reinsertion of hwr,L3-S1 PSF w/instrumenation(Not Applicable) - Karyna Beth MD Surgical History (Last Updated 01/03/20 @ 08:58 by Liset Smart RN) History of bladder surgery (Acute) History of hysterectomy (Acute) History of laminectomy (Acute) History of lumbar fusion (Acute 08/30/17) S/P foot surgery, left (Acute) S/P foot surgery, right (Acute) Medical History Bipolar 1 disorder, depressed, mild (Acute) Charcot Belkis Tooth muscular atrophy (Acute) Pre-diabetes (Acute) PTSD (post-traumatic stress disorder) (Acute ~2018) Smoker (Acute) Physical Therapy Inpatient Evaluation/Re-Eval M1 PT/OT-IP Prior Functional Status Start: 01/09/20 15:37 Freq: NEEDED Status: Active Protocol: Document 01/09/20 17:08 AW (Rec: 01/09/20 17:27 AW [email or web address]) Medical Review Prior Functional Status Medical History Reviewed Yes Communication WNL. No known deficits. Mobility and Gait Pt states she is independent with household mobility and short community distances but often requires PLUMBER MAINTENANCE from her . If he is not around, she typically uses furniture and haddad for support as she moves. Pt reports falling at a rate of ~2x/month with no recent injurious falls. Activities of Daily Living and IADL's Pt requires assist for LB dressing and SBA for showers. Her provides such assist. She reports bladder incontinence and often uses pads. Prior Functional Level (Other details) Pt holds diagnosis of Charcot Belkis disease and has had foot reconstruction surgery. CMT affects sensation in bilateral feet with right more affected than left. Pt must wear shoes to walk. She states she has right foot drop. Social History Household Members spouse Living Arrangements Apartment/Condo Number of Floors (Floors) One Floor Number of Stairs To Enter/Railing? Level entrance with short threshhold step to enter. Home Environment High Toilet,Tub/Shower Home Equipment Four Wheel Walker,Straight Cane,Shower Seat without Backrest,Hand Held Shower,Long Handled Shoe Horn,Hotel Supplies Salesperson, Grab Bars In Shower Employment Status Unemployed Additional Social History Comment Pt states she typically sleeps in a recliner chair. She lives with her spouse, Wilton, who is not employed and is able to assist as much as needed. M2 PT-IP Current Condition Start: 01/09/20 15:37 Freq: NEEDED Status: Active Protocol: Document 01/09/20 17:08 AW (Rec: 01/09/20 17:27 AW [email or web address]) Physical Therapy Current Condition Current Condition Evaluation Date 01/09/20 Treatment Diagnosis s/p revision L4-S1 TLIF; CMT; difficulty in walking. Onset Date 01/09/20 Precautions Lumbar Precautions Log Roll,No Twisting,Limit Bending,Lifting Restriction of 10 lbs,Gait Belt above Incisional Area Other Precautions history of recurrent falls Weight Bearing Status Weight Bearing Status Weight Bear as Tolerated M3 PT-IP Subjective Start: 01/09/20 15:37 Freq: NEEDED Status: Active Protocol: Document 01/09/20 17:08 AW (Rec: 01/09/20 17:27 AW [email or web address]) Subjective Physical Therapy Visit Type Type Initial Evaluation Visit Start Time 16:25 Visit Stop Time 16:48 Total Visit Minutes 23 Physical Therapy Visit Comments Patient Comments I'd love to get up out of bed . Therapy Pain Assessment Pain When Pain Assessed During Mobility Pain Present Pain Present Pain Reported Location Posterior Back Scale Used not quantified Pain Management Techniques Re-positioning,Timing of Activity with Medications M4 PT-IP Mobility and Gait Start: 01/09/20 15:37 Freq: NEEDED Status: Active Protocol: Document 01/09/20 17:08 AW (Rec: 01/09/20 17:27 AW [email or web address]) PT-Bed Mobility Assessment Rolling Type of Rolling Log Rolling,Roll to Left Level of Assist Standby Assistance Supine to Sit Supine to Sit Standby Assistance,Bedrails Scooting Scooting to Edge of Bed Standby Assistance PT-Transfer Assessment Sit to and From Stand Sit to and from Stand Minimal Assistance,1 Person Assistance,Use of Upper Extremities Equipment Transfer Assistive Device Gait Belt,Front Wheeled Walker Orthotic/Prosthetic Devices or Brace: No Transfers Transfer Destination Chair Transfer Technique pt ambulated with FWW Transfer Ability Level of Assist Contact Guard Assistance,Use of Upper Extremities Comments Mobility Comments Pt completed log roll to her left side and SL to sit SBA after brief explanation and demonstration. PT reviewed back precautions with pt who was able to recall all three. With bed in lowest position, pt stood with FWW min A x 1 and ambulated toward the window. She turned with good attention to precautions and walked back to the chair, transferring CGA with cues to avoid lumbar flexion. Gait Assessment Gait Gait Assistance Required: Contact Guard Assist,1 Person Assist Distance (Feet) 10 Able to Maintain Weight Bearing Status Yes During Gait Assistive Devices Assistive Device Gait Belt,Front Wheeled Walker Orthotic/Prosthetic Devices or Brace: No Gait Deviations General Gait Pattern Antalgic,Decreased Stride Length,Decreased Feet Clearance,Flexed Trunk,Wide Based Gait Factors Limiting Gait Function Factors Limiting Gait Function Decreased Sensation,Decreased Strength,Limited Range of Motion,Pain,Poor Balance Comments Gait Comments Pt required assist to don her socks and shoes. She ambulated in the room with FWW CGA, demonstrating good attention to back precautions. Stair Climbing Assessment Comments Stair Climbing Comments Not assessed. PT-Balance Assessment Sitting Balance and Reactions Static Sitting Balance Ability Good Dynamic Sitting Balance Ability Good Standing Balance and Reactions Static Standing Balance Ability Good Dynamic Standing Balance Ability Good Device Used FWW M5 PT-IP Objective Assessments Start: 01/09/20 15:37 Freq: NEEDED Status: Active Protocol: Document 01/09/20 17:08 AW (Rec: 01/09/20 17:27 AW [email or web address]) Orientation Orientation/Cognition Level of Alertness Alert Orientation Name,Day of Week,Place, Situation Language Function Ability No Deficits Noted Safety Awareness Understands Safety Issues Memory Description No Deficits Noted Gross Range of Motion Upper Extremity ROM Assessment Within Functional Limits Lower Extremity ROM Assessment Bilaterally Impaired Impairments Pt lacks active dorsiflexion with right more affected than left. Strength Lower Extremity Strength Assessment Bilaterally Impaired Hip 4/5 Knee 4+/5 Ankle 4-/5 Coordination Assessment Gross Coordination Gross Coordination WNL Sensation Assessment Sensation Gross Sensation Right LE Impaired,Left LE Impaired Light Touch Impaired Proprioception (Position) Impaired Sensation Description Numbness Muscle Tone Muscle Tone WNL Yes M6 PT-IP Treatment Start: 01/09/20 15:37 Freq: NEEDED Status: Active Protocol: Document 01/09/20 17:08 AW (Rec: 01/09/20 17:27 AW [email or web address]) Physical Therapy Treatment Education Education Provided Precautions,Weight Bearing Status,Post-Op Packet,Safety Other Treatments Other Treatment Performed Provided education on role of PT, plan of care, post op precautions, and safe use of FWW. M7 PT-IP Assessment and Plan Start: 01/09/20 15:37 Freq: NEEDED Status: Active Protocol: Document 01/09/20 17:08 AW (Rec: 01/09/20 17:27 AW [email or web address]) PT Summary Assessment and Plan Potential Rehabilitation Potential Good Status of Condition at Evaluation Evolving Summary Impairments Pain,ROM,Strength,Balance, Sensation,Bed Mobility, Transfers,Gait,Activity Tolerance Assessment Summary Vijaya is a 44 yo woman seen for PT evaluation on POD0 following revision TLIF. She is independent with household mobility at baseline but often depends on her spouse for PLUMBER MAINTENANCE . Alternatively, she depends on haddad and furniture for support. She reports frequent falls at a rate of ~2x/month. On evaluation, pt is highly motivated and willing to work in spite of pain, requiring CGA to min assist for transfers and short bout ambulation with FWW. PT anticipates this pt will be safe to discharge home with assist once medically cleared. She may benefit from having her spouse participate in caregiver training depending on level of assist required. Goals Bed Mobility Goal Independent Transfer Goal Independent,Four Wheeled Walker Gait Goal Independent,Four Wheel Walker Gait Distance 100 Other Goals - FWW if unsafe with 4WW Days to Meet Goals 3 Frequency of Treatment Frequency Of Treatment Twice a Day Treatment Plan Physical Therapy Treatment Plan Bed Mobility Training,Transfer Training,Gait Training, Therapeutic Exercise,Balance Retraining,Post Op Education, Discharge Planning,Hot or Cold Pack,Neuromuscular Re-ed Other Recommendations and Next Treatment transfers, assess ambulation Focus with 4WW Recommendations To Nursing Amount of Assist Needed 1 Person Assist Discharge Recommendations PT Discharge Recommendations Home with Assistance Transportation Needs at Discharge Private Vehicle
--- NOTE | 2020-01-09 17:30 | PC.NURSE ---
Addendum entered by Marilyn Walsh R.N. 01/09/20 23:27: pt had two more episodes of vomiting. notified provider construction administrative assistant. VTO for reglan 5-10mg Q4hr PRN. Reinforced dressing with island barrier as it was peeling off. night time meds were not given due to n/v. Original Note: 300cc emesis out. administered zofran.
[2020-01-09] MEDS: hydrOXYzine pamoate 25 MG CAPSULE PO (19:43)
[2020-01-09] MEDS: METOCLOPRAMIDE 10 MG/2 ML INJ 5 MG IV (21:59)
[2020-01-09] MEDS: HYDROMORPHONE 0.5 MG INJ IV (23:39)
[2020-01-10] VITALS: BP 131/74; PULSE 85; RESP 16; TEMP 36.1; O2SAT 93
[2020-01-10] MEDS: HYDROMORPHONE 0.5 MG INJ IV ×2 (01:56→19:33)
[2020-01-10] MEDS: METOCLOPRAMIDE 10 MG/2 ML INJ IV (01:56)
[2020-01-10] MEDS: HYDROCODONE/ACET 5/325 TABLET 2 TAB PO ×5 (03:37→21:30)
[2020-01-10] MEDS: hydrOXYzine pamoate 25 MG CAPSULE PO ×2 (03:37→18:48)
[2020-01-10 05:49] VITALS: BP 118/65; PULSE 87; RESP 16; TEMP 36.3; O2SAT 94
[2020-01-10 07:04] LABS: Hematocrit 39.3 % (36-46); Hemoglobin 13.2 g/dL (12.0-16.0)
--- NOTE | 2020-01-10 08:02 | P.PN_ITS ---
Subjective Subjective Date Patient Seen: 01/10/20 Time Patient Seen: 08:02 Interval history: Pain was moderate to severe yesterday evening. Pain is more [id number] today. She did have some nausea last night which has improved and actually resolved this morning. She was able to have a little bit up breakfast. No fever chills. No shortness of breath or chest pain. Exam Vital Signs (past 8 hours): - 01/10/20 05:49 Temperature 97.4 F L Pulse Rate 87 Respiratory Rate 16 Blood Pressure 118/65 Pulse Oximetry 94 Oxygen Delivery Method Room Air Oxygen Flow Rate 0 Narrative Exam Narrative: 44-year-old female of resting comfortably in bedside chair in no apparent distress. Moderate amount of ss drainage on the dressing otherwise dressing intact. Motor functions intact bilateral lower extremities. Sensation grossly intact to light touch bilateral lower extremities. Both legs are warm and dry. No calf tenderness. Objective Labs Result Diagrams: 01/10/20 06:53 Labs: Laboratory Results - last 24 hr 01/10/20 06:53 Hgb 13.2 Hct 39.3 Assessment & Plan Post-op Postoperative Procedures: Procedures Operation Date: 01/09/20 07:45 Actual Procedures Side Surgeon p L3-4 TLIF,L4-S1 lumbar HWR,exploration of fusion,repeat laminectomy,reinsert ion of hwr,L3-S1 PSF w/instrumenation Not Applicable Karyna Beth MD Postop day 1. Patient progressing as expected. Mobilize with physical therapy. Plan to DC [place] when mobilizing better. Limit bending, twisting, lifting. Continue work on pain control likely discharge home tomorrow. Quality VTE Deep Vein Thrombosis/Pulmonary Embolism Present on Admission: No
[2020-01-10] MEDS: FLUoxetine 20 MG CAPSULE 80 MG PO (08:09)
[2020-01-10] MEDS: DOCUSATE 100 MG CAPSULE PO ×2 (08:10→21:30)
[2020-01-10] MEDS: LORazepam 1 MG TABLET PO ×3 (08:10→21:31)
[2020-01-10] MEDS: GABAPENTIN 300 MG CAPSULE PO ×3 (08:10→21:30)
[2020-01-10] MEDS: SODIUM CHLORIDE 0.9% FLUSH 10 ML IV ×2 (08:10→21:34)
[2020-01-10] MEDS: PREGABALIN 75 MG CAPSULE 150 MG PO ×2 (08:10→16:20)
[2020-01-10 09:25] VITALS: BP 118/72; PULSE 97; RESP 16; TEMP 36.4; O2SAT 92
--- NOTE | 2020-01-10 10:17 | PT.IPTN ---
Current Diagnoses Spinal stenosis, lumbar region without neurogenic claudication (01/09/20) Other mechanical complication of other internal orthopedic devices, implants and grafts, initial encounter (01/09/20) Surgery Performed Operation Date: 01/09/20 07:45 Actual Procedures p L3-4 TLIF,L4-S1 lumbar HWR,exploration of fusion,repeat laminectomy,reinsertion of hwr,L3-S1 PSF w/instrumenation(Not Applicable) - Karyna Beth MD Physical Therapy Treatment Note M2 PT-IP Current Condition Start: 01/09/20 15:37 Freq: NEEDED Status: Active Protocol: Document 01/09/20 17:08 AW (Rec: 01/09/20 17:27 AW [email or web address]) Physical Therapy Current Condition Current Condition Evaluation Date 01/09/20 Treatment Diagnosis s/p revision L4-S1 TLIF; CMT; difficulty in walking. Onset Date 01/09/20 Precautions Lumbar Precautions Log Roll,No Twisting,Limit Bending,Lifting Restriction of 10 lbs,Gait Belt above Incisional Area Other Precautions history of recurrent falls Weight Bearing Status Weight Bearing Status Weight Bear as Tolerated M3 PT-IP Subjective Start: 01/09/20 15:37 Freq: NEEDED Status: Active Protocol: Document 01/10/20 10:17 AW (Rec: 01/10/20 11:16 AW [email or web address]) Subjective Physical Therapy Visit Type Type Treatment Note Visit Start Time 09:59 Visit Stop Time 10:17 Total Visit Minutes 18 Physical Therapy Visit Comments Patient Comments It really feels good to be up . Therapy Pain Assessment Pain When Pain Assessed At Rest Pain Present Pain Present Pain Reported Location Posterior Back Intensity 6 Pain Management Techniques Re-positioning,Timing of Activity with Medications M4 PT-IP Mobility and Gait Start: 01/09/20 15:37 Freq: NEEDED Status: Active Protocol: Document 01/10/20 10:17 AW (Rec: 01/10/20 11:16 AW [email or web address]) PT-Transfer Assessment Sit to and From Stand Sit to and from Stand Standby Assistance,Use of Upper Extremities Equipment Transfer Assistive Device Gait Belt,4 Wheeled Walker Orthotic/Prosthetic Devices or Brace: No Transfers Transfer Destination Chair Transfer Technique pt ambulated with 4WW Transfer Ability Level of Assist Contact Guard Assistance,Use of Upper Extremities Comments Mobility Comments Pt was sitting in the chair when PT arrived. She agreed to trial 4WW since she has one at home. Pt appropriate set the brakes, scooted herself to edge of chair, and used her arms to push up to standing SBA. She complained of increased pain with initial standing but noted improvement with continued mobility. She ambulated safely in the halls a total of ~200 feet with 4WW SBA. Gait speed was slow but steady. She requried occasional cues to limit twisting while turning to look at artwork on the haddad. She returned to the room and transferred to the chair CGA and cues to maintain neutral spine. She was positioned on the chair with call light and all needs in reach. PT provided ice pack for low back . Gait Assessment Gait Gait Assistance Required: Standby Assistance,1 Person Assist Distance (Feet) 200 Able to Maintain Weight Bearing Status Yes During Gait Assistive Devices Assistive Device Gait Belt,4 Wheeled Walker Orthotic/Prosthetic Devices or Brace: No Gait Deviations General Gait Pattern Antalgic,Decreased Stride Length,Decreased Feet Clearance,Flexed Trunk,Wide Based Gait Factors Limiting Gait Function Factors Limiting Gait Function Decreased Sensation,Decreased Strength,Limited Range of Motion,Pain,Poor Balance Comments Gait Comments Pt already had her shoes and socks on when PT arrived. See mobility comments for details. Stair Climbing Assessment Comments Stair Climbing Comments Not assessed. No stairs at home. PT-Balance Assessment Sitting Balance and Reactions Static Sitting Balance Ability Good Dynamic Sitting Balance Ability Good Standing Balance and Reactions Static Standing Balance Ability Good Dynamic Standing Balance Ability Good Device Used 4WW M5 PT-IP Objective Assessments Start: 01/09/20 15:37 Freq: NEEDED Status: Active Protocol: Document 01/09/20 17:08 AW (Rec: 01/09/20 17:27 AW [email or web address]) Orientation Orientation/Cognition Level of Alertness Alert Orientation Name,Day of Week,Place, Situation Language Function Ability No Deficits Noted Safety Awareness Understands Safety Issues Memory Description No Deficits Noted Gross Range of Motion Upper Extremity ROM Assessment Within Functional Limits Lower Extremity ROM Assessment Bilaterally Impaired Impairments Pt lacks active dorsiflexion with right more affected than left. Strength Lower Extremity Strength Assessment Bilaterally Impaired Hip 4/5 Knee 4+/5 Ankle 4-/5 Coordination Assessment Gross Coordination Gross Coordination WNL Sensation Assessment Sensation Gross Sensation Right LE Impaired,Left LE Impaired Light Touch Impaired Proprioception (Position) Impaired Sensation Description Numbness Muscle Tone Muscle Tone WNL Yes M6 PT-IP Treatment Start: 01/09/20 15:37 Freq: NEEDED Status: Active Protocol: Document 01/10/20 10:17 AW (Rec: 01/10/20 11:16 AW [email or web address]) Physical Therapy Treatment Education Education Provided Precautions,Safety Other Treatments Other Treatment Performed Pt is able to recall 3/3 back precautions but requires cues to maintain neutral spine during transfers and ambulation. M7 PT-IP Assessment and Plan Start: 01/09/20 15:37 Freq: NEEDED Status: Active Protocol: Document 01/10/20 10:17 AW (Rec: 01/10/20 11:16 AW [email or web address]) PT Summary Assessment and Plan Potential Rehabilitation Potential Good Status of Condition at Evaluation Stable Summary Impairments Pain,ROM,Strength,Balance, Sensation,Bed Mobility, Transfers,Gait,Activity Tolerance Progress Towards Goals Progressing Toward Goals Assessment Summary Vijaya was able to progress her gait distance this session and demonstrated safety with 4WW. PT agreed 4WW would be safe for her at home. Pt is somewhat limited by pain. PT will continue to follow to progress safe mobility. Goals Bed Mobility Goal Independent Transfer Goal Independent,Four Wheeled Walker Gait Goal Independent,Four Wheel Walker Gait Distance 100 Other Goals - FWW if unsafe with 4WW Days to Meet Goals 2 Frequency of Treatment Frequency Of Treatment Twice a Day Treatment Plan Physical Therapy Treatment Plan Bed Mobility Training,Transfer Training,Gait Training, Therapeutic Exercise,Balance Retraining,Post Op Education, Discharge Planning,Hot or Cold Pack,Neuromuscular Re-ed Other Recommendations and Next Treatment gait with 4WW, review Focus precautions Recommendations To Nursing Amount of Assist Needed 1 Person Assist Discharge Recommendations PT Discharge Recommendations Home with Assistance
--- NOTE | 2020-01-10 11:20 | OT.IP.EVAL ---
Current Diagnoses Spinal stenosis, lumbar region without neurogenic claudication (01/09/20) Other mechanical complication of other internal orthopedic devices, implants and grafts, initial encounter (01/09/20) Surgery Performed Operation Date: 01/09/20 07:45 Actual Procedures p L3-4 TLIF,L4-S1 lumbar HWR,exploration of fusion,repeat laminectomy,reinsertion of hwr,L3-S1 PSF w/instrumenation(Not Applicable) - Karyna Beth MD Past Medical History Bipolar 1 disorder, depressed, mild (Acute) Charcot Belkis Tooth muscular atrophy (Acute) Pre-diabetes (Acute) PTSD (post-traumatic stress disorder) (Acute ~2019) Smoker (Acute) Surgical History (Last Updated 01/03/20 @ 08:58 by Liset Smart RN) History of bladder surgery (Acute) History of hysterectomy (Acute) History of laminectomy (Acute) History of lumbar fusion (Acute 08/30/17) S/P foot surgery, left (Acute) S/P foot surgery, right (Acute) Occupational Therapy Inpatient Evaluation/Re-Eval M1 PT/OT-IP Prior Functional Status Start: 01/09/20 15:37 Freq: NEEDED Status: Active Protocol: Document 01/10/20 11:40 RM (Rec: 01/10/20 12:57 RM [id number]) Medical Review Prior Functional Status Medical History Reviewed Yes Diet/Fluid Consistency Regular Communication WNL. No known deficits. Mobility and Gait Pt states she is independent with household mobility and short community distances but often requires LABORATORY ENGINEER from her . If he is not around, she typically uses furniture and haddad for support as she moves. Pt reports falling at a rate of ~2x/month with no recent injurious falls. Activities of Daily Living and IADL's Pt (I) with self-care accept assist for lacing shoes and SBA for showers with available to provide all assist as needed. provides assist for all IADL management. 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 Pt holds diagnosis of Charcot Belkis disease and has had foot reconstruction surgery. CMT affects sensation in bilateral feet with right more affected than left. Pt must wear shoes to walk. She states she has right foot drop. Social History Household Members spouse Living Arrangements Apartment/Condo Number of Floors (Floors) One Floor Number of Stairs To Enter/Railing? Level entrance with short threshhold step to enter. Home Environment High Toilet,Tub/Shower Home Equipment Four Wheel Walker,Straight Cane,Shower Seat without Backrest,Hand Held Shower,Long Handled Shoe Horn,Bobcat Operator, Grab Bars In Shower Employment Status Unemployed Additional Social History Comment Pt states she typically sleeps in a recliner chair. She lives with her spouse, Wilton, who is not employed and is able to assist as much as needed. M2 OT-IP Current Condition Start: 01/10/20 12:28 Freq: Status: Active Protocol: Document 01/10/20 11:40 RM (Rec: 01/10/20 12:57 RM [id number]) Occupational Therapy Current Condition Current Condition Evaluation Date 01/10/20 Treatment Diagnosis multi-level lumbar stenosis and spondylosis Diagnosis Onset Date 01/09/20 Post Operative Precautions Lumbar Precautions Log Roll,No Twisting,Limit Bending,Lifting Restriction of 10 lbs,Gait Belt above Incisional Area Weight Bearing Status Weight Bearing Status Weight Bear as Tolerated M3 OT- IP Subjective and Pain Start: 01/10/20 12:28 Freq: Status: Active Protocol: Document 01/10/20 11:40 RM (Rec: 01/10/20 12:57 RM [id number]) OT- Subjective Occupational Therapy Visit Type Type Initial Evaluation Visit Start Time 11:20 Visit Stop Time 11:40 Total Visit Minutes 20 Occupational Therapy Visit Comments Patient Comments Pt reports feeling legs shaking due to increased pain. Patient/Caregiver Goals Pt goal to address performance with shower prior to discharge. OT Pain Assessment Pain When Pain Assessed At Rest Pain Present Pain Present Pain Reported Location Posterior Back Intensity 5 Scale Used Numeric (0 - 10) Management Techniques Apply Cold,Re-positioning M4 OT- IP ADL's Start: 01/10/20 12:28 Freq: Status: Active Protocol: Document 01/10/20 11:40 RM (Rec: 01/10/20 12:57 RM [id number]) OT [id number] General Evaluation Self-Feeding Ability Independent OT ADL-Grooming General Evaluation Grooming Ability Independent OT ADL-Oral Care General Eval Oral Care Ability Independent OT ADL-Dressing General Eval Upper Body Dressing Ability Independent Lower Body Dressing Ability Minimal Assistance Areas Needing Assistance Shoes Assistive Devices Dressing Assistive Devices Long Handled Shoe Lea,Bobcat Operator OT ADL-Toileting General Evaluation Toileting Ability Standby Assistance Devices Toileting Assistive Devices Grab Bars Comments OT Toileting Comments Cues for safe technique to decrease force with lifting and lowering herself from toilet OT ADL-Bathing Comments OT Bathing Comments Not performed M5 OT- IP IADL's Start: 01/10/20 12:28 Freq: Status: Active Protocol: Document 01/10/20 11:40 RM (Rec: 01/10/20 12:57 RM [id number]) OT-Instrumental Activities of Daily Living Deficits IADL Deficits Identified Deficits Meal Preparation Meal Preparation Caregiver Provides Assist Meal Preparation Comments Able to participate with some meal prep tasks in sitting. Cartographic Engineer Cartographic Engineer Caregiver Provides Assist Driving Driving Comments Pt reports driving prior to surgery. M6 OT- IP Functional Cognition Start: 01/10/20 12:28 Freq: Status: Active Protocol: Document 01/10/20 11:40 RM (Rec: 01/10/20 12:57 RM [id number]) Cognitive Factors Limiting Selfcare Function Cognitive Ability Level of Alertness Alert Patient Orientation Name,Month,Date,Year,Place, Situation Attention Span Ability Capable of Focused Attention, Capable of Sustained Attention Ability to Follow Commands Able to Follow Multi-Step Commands Memory Description No Deficits Noted Safety Awareness No Deficits Noted Problem Solving Ability No deficits Noted Executive Function Ability No Deficits Noted Abstract Thinking Ability No Deficits Noted OT- Vision and Hearing OT- Hearing Assessment OT- Hearing Assessment WFL OT- Vision Assessment Visual Acuity WFL M7 OT- IP Mobility and Balance Start: 01/10/20 12:28 Freq: Status: Active Protocol: Document 01/10/20 11:40 RM (Rec: 01/10/20 12:57 RM [id number]) OT-Transfer Assessment Sit to and From Stand Sit to and from Stand Standby Assistance Transfers Transfer Ability Standby Assistance Technique Transfer Destination Chair,Toilet Transfer Technique Stand Step Pivot Devices Transfer Assistive Devices 4 Wheeled Walker OT- Gait Assessment Gait Gait Assistance Required: Standby Assistance Assistive Devices Assistive Device 4 Wheeled Walker Comments Gait Ability Comments Demonstrates ability to manuever safely with 4WW with patient room and in and out of bathroom. OT- Balance Assessment Sitting Balance and Reactions Static Sitting Balance Ability Good Dynamic Sitting Balance Ability Good Standing Balance and Reactions Static Standing Balance Ability Good Dynamic Standing Balance Ability Fair M8 OT- IP Objective Assessments Start: 01/10/20 12:28 Freq: Status: Active Protocol: Document 01/10/20 11:40 RM (Rec: 01/10/20 12:57 RM [id number]) OT Gross Range of Motion Upper Extremity Range of Motion Assessment Within Functional Limits OT Strength Upper Extremity Strength Assessment Within Functional Limits Hand Insights Manager Strength Hand Dominance Right OT-Muscle Tone Assessment Muscle Tone WNL Yes M9 OT- IP Assessment and Plan Start: 01/10/20 12:28 Freq: Status: Active Protocol: Document 01/10/20 11:40 RM (Rec: 01/10/20 12:57 RM [id number]) OT Summary Assessment and Plan Potential Rehabilitation Potential Good Analytic Complexity at Evaluation Low Summary OT Impairments Pain,Functional Mobility, Bathing,Toilet Transfers, Shower Transfers Progress Towards Goals Slow Progress due to Pain Assessment Summary Patient tolerance was limited due to pain, although had seen PT prior to OT EVAL. Goals Bathing Goal Standby Assistance Shower Transfer Goal Standby Assistance Patient/Caregiver Education Goal Demonstrate Post-Op Precautions,Demonstrate Energy Conservation and Pacing Days to Meet Goals 1 Frequency of Treatment Frequency Of Treatment Once a Day Treatment Plan OT Treatment Plan ADL Training,Functional Mobility,Patient/Family Education Other Treatment Recommendations and Next Complete shower assessment and Treatment Focus incorporate education for post-op precautions and energy conservation/pacing strategies to manage pain. Discharge Recommendations OT Discharge Recommendations Home with Assistance Home Equipment Needs None, reports all necessary AE /DME already in place Transportation Needs at Discharge Private Vehicle
[2020-01-10 14:00] VITALS: BP 120/70; PULSE 95; RESP 16; TEMP 36.8; O2SAT 93
--- NOTE | 2020-01-10 14:53 | PC.NURSE ---
SHIFT SUMMARY; PATIENT TOLERATES 2 VICODIN Q 4HR PRN WITH SCHEDULED ATIVAN AND GABAPENTIN. RE-INFORCED DRSG FROM [facility]. DENIES NAUSEA ALL SHIFT. AMBULATED IN HALLS WITH PHYSICAL THERAPY. UP IN RECLINER FOR LUNCH. JOSE RAMON CAVANAUGH'Edith AND PATIENT ABLE TO VOID SINCE. REPORTS HX INCONT. WEARS BRIEF, VOIDED IN TOILET. IV OH'Edith. RA. RED.
--- NOTE | 2020-01-10 15:38 | PT.IPTN ---
Current Diagnoses Spinal stenosis, lumbar region without neurogenic claudication (01/09/20) Other mechanical complication of other internal orthopedic devices, implants and grafts, initial encounter (01/09/20) Surgery Performed Operation Date: 01/09/20 07:45 Actual Procedures p L3-4 TLIF,L4-S1 lumbar HWR,exploration of fusion,repeat laminectomy,reinsertion of hwr,L3-S1 PSF w/instrumenation(Not Applicable) - Karyna Beth MD Physical Therapy Treatment Note M2 PT-IP Current Condition Start: 01/09/20 15:37 Freq: NEEDED Status: Active Protocol: Document 01/09/20 17:08 AW (Rec: 01/09/20 17:27 AW [email or web address]) Physical Therapy Current Condition Current Condition Evaluation Date 01/09/20 Treatment Diagnosis s/p revision L4-S1 TLIF; CMT; difficulty in walking. Onset Date 01/09/20 Precautions Lumbar Precautions Log Roll,No Twisting,Limit Bending,Lifting Restriction of 10 lbs,Gait Belt above Incisional Area Other Precautions history of recurrent falls Weight Bearing Status Weight Bearing Status Weight Bear as Tolerated M3 PT-IP Subjective Start: 01/09/20 15:37 Freq: NEEDED Status: Active Protocol: Document 01/10/20 15:18 CLB (Rec: 01/10/20 15:59 CLB [id number]) Subjective Physical Therapy Visit Type Type Treatment Note Visit Start Time 15:18 Visit Stop Time 15:38 Total Visit Minutes 20 Physical Therapy Visit Comments Patient Comments Pt willing to get up and ambulate. Therapy Pain Assessment Pain When Pain Assessed At Rest Pain Present Pain Present Pain Reported Location Posterior Back Intensity 6 Pain Management Techniques Re-positioning,Timing of Activity with Medications M4 PT-IP Mobility and Gait Start: 01/09/20 15:37 Freq: NEEDED Status: Active Protocol: Document 01/10/20 15:18 CLB (Rec: 01/10/20 15:59 CLB [id number]) PT-Bed Mobility Assessment Supine to Sit Supine to Sit Contact Guard Assistance Scooting Scooting to Edge of Bed Standby Assistance PT-Transfer Assessment Sit to and From Stand Sit to and from Stand Standby Assistance,Use of Upper Extremities Equipment Transfer Assistive Device Gait Belt,4 Wheeled Walker Orthotic/Prosthetic Devices or Brace: No Transfers Transfer Destination Chair Transfer Technique pt ambulated with 4WW Transfer Ability Level of Assist Standby Assistance,Use of Upper Extremities Comments Mobility Comments Pt sidelying in bed on left side. Pt required CGA to sit up. Pt required assist putting on shoes. Pt stood SBA and ambulated in cast ~240ft w/4WW . Pt sat in chair SBA with use of UE's on chair arms. Pt then requested to use BR, Pt stood SBA and ambulated to bathroom able to doff/kimmy brief and sit<>stand SBA with use of wall rail. Pt ambulated to sink to wash hands requiring SBA with good standing balance. Pt returned to chair SBA. Left pt in chair with all needs with in reach. RN informed of urine output and pt mobility. Gait Assessment Gait Gait Assistance Required: Standby Assistance,1 Person Assist Distance (Feet) 240 Able to Maintain Weight Bearing Status Yes During Gait Assistive Devices Assistive Device Gait Belt,4 Wheeled Walker Orthotic/Prosthetic Devices or Brace: No Gait Deviations General Gait Pattern Antalgic,Decreased Stride Length,Decreased Feet Clearance,Flexed Trunk,Wide Based Gait Factors Limiting Gait Function Factors Limiting Gait Function Decreased Sensation,Decreased Strength,Limited Range of Motion,Pain,Poor Balance Comments Gait Comments see mobility comments. Stair Climbing Assessment Comments Stair Climbing Comments Not assessed. No stairs at home. PT-Balance Assessment Sitting Balance and Reactions Static Sitting Balance Ability Good Dynamic Sitting Balance Ability Good Standing Balance and Reactions Static Standing Balance Ability Good Dynamic Standing Balance Ability Good Device Used 4WW M5 PT-IP Objective Assessments Start: 01/09/20 15:37 Freq: NEEDED Status: Active Protocol: Document 01/09/20 17:08 AW (Rec: 01/09/20 17:27 AW [id number]) Orientation Orientation/Cognition Level of Alertness Alert Orientation Name,Day of Week,Place, Situation Language Function Ability No Deficits Noted Safety Awareness Understands Safety Issues Memory Description No Deficits Noted Gross Range of Motion Upper Extremity ROM Assessment Within Functional Limits Lower Extremity ROM Assessment Bilaterally Impaired Impairments Pt lacks active dorsiflexion with right more affected than left. Strength Lower Extremity Strength Assessment Bilaterally Impaired Hip 4/5 Knee 4+/5 Ankle 4-/5 Coordination Assessment Gross Coordination Gross Coordination WNL Sensation Assessment Sensation Gross Sensation Right LE Impaired,Left LE Impaired Light Touch Impaired Proprioception (Position) Impaired Sensation Description Numbness Muscle Tone Muscle Tone WNL Yes M6 PT-IP Treatment Start: 01/09/20 15:37 Freq: NEEDED Status: Active Protocol: Document 01/10/20 10:17 AW (Rec: 01/10/20 11:16 AW [id number]) Physical Therapy Treatment Education Education Provided Precautions,Safety Other Treatments Other Treatment Performed Pt is able to recall 3/3 back precautions but requires cues to maintain neutral spine during transfers and ambulation. M7 PT-IP Assessment and Plan Start: 01/09/20 15:37 Freq: NEEDED Status: Active Protocol: Document 01/10/20 15:18 CLB (Rec: 01/10/20 15:59 CLB [id number]) PT Summary Assessment and Plan Potential Rehabilitation Potential Good Status of Condition at Evaluation Stable Summary Impairments Pain,ROM,Strength,Balance, Sensation,Bed Mobility, Transfers,Gait,Activity Tolerance Progress Towards Goals Progressing Toward Goals Assessment Summary Pt requiring SBA-CGA for all mobility, pt able to ambulate in cast ~240ft SBA with FWW. Pt recalled 3/3 back precautions. Pt is progressing towards goals and will likely be safe to d/c home with assist when medically stable. Goals Bed Mobility Goal Independent Transfer Goal Independent,Four Wheeled Walker Gait Goal Independent,Four Wheel Walker Gait Distance 100 Other Goals - FWW if unsafe with 4WW Days to Meet Goals 2 Frequency of Treatment Frequency Of Treatment Twice a Day Treatment Plan Physical Therapy Treatment Plan Bed Mobility Training,Transfer Training,Gait Training, Therapeutic Exercise,Balance Retraining,Post Op Education, Discharge Planning,Hot or Cold Pack,Neuromuscular Re-ed Other Recommendations and Next Treatment gait with 4WW, review Focus precautions Recommendations To Nursing Amount of Assist Needed 1 Person Assist Discharge Recommendations PT Discharge Recommendations Home with Assistance Transportation Needs at Discharge Private Vehicle
[2020-01-10 15:45] VITALS: BP 142/82; PULSE 88; RESP 16; TEMP 36.8; O2SAT 94
--- NOTE | 2020-01-10 19:05 | PC.NURSE ---
top of the dressing started to peel off. I removed the top half of surgical tape and covered it with coversite.
[2020-01-10 19:44] VITALS: BP 117/57; PULSE 88; RESP 16; TEMP 36.7; O2SAT 93
[2020-01-10] MEDS: SENNOSIDES 8.6 MG TABLET 17.2 MG PO (21:29)
[2020-01-10] MEDS: ARIPiprazole 10 MG TABLET PO (21:30)
[2020-01-10] MEDS: cloNIDine 0.1 MG TABLET PO (21:31)
[2020-01-11] VITALS: BP 114/70; PULSE 96; RESP 16; TEMP 36.6; O2SAT 94
[2020-01-11] MEDS: HYDROMORPHONE 0.5 MG INJ IV ×2 (00:14→06:55)
[2020-01-11] MEDS: hydrOXYzine pamoate 25 MG CAPSULE PO ×2 (00:14→06:56)
[2020-01-11 04:47] VITALS: BP 129/90; PULSE 86; RESP 16; TEMP 36.6; O2SAT 98
[2020-01-11] MEDS: HYDROCODONE/ACET 5/325 TABLET 2 TAB PO ×2 (05:16→10:17)
--- NOTE | 2020-01-11 07:44 | P.DS_ITS ---
History of Present Illness History of Present Illness Date Patient Seen: 01/11/20 Time Patient Seen: 07:45 Chief complaint: Translaminar Interbody Fusion/Laminotomy Narrative: Patient has been having chronic back pain and worsening lumbar radiculopathy. Patient had prior fusion surgery and has been doing well until the last 6 months. Repeat x-ray shows a broken fusion valencia. Patient also has been having worsening symptoms with back pain leg pain. Patient failed multiple conservative management with worsening pain weakness and numbness in her lower extremity. Patient has been having difficulty performing activity of daily living. After discussing risks benefits of treatment options, patient elected proceed with surgery. Discharge Providers Provider Date of admission: 01/09/20 05:55 Discharge Date: 01/11/20 Primary care physician: Doctor Israel MD Consults: 01/03/20 09:52 Consult to Respiratory Therapy Evaluate & Treat Comment: INPT 01/09/20 - Pt requests a nicotine patch Physician Instructions: Evaluate and treat 01/09/20 07:14 Consult to Respiratory Therapy Evaluate & Treat Comment: Physician Instructions: Evaluate and treat 01/09/20 14:04 Consult to Occupational Therapy Evaluate & Treat Comment: Physician Instructions: Evaluate and treat Consult to Physical Therapy Evaluate & Treat Comment: Physician Instructions: Evaluate and Treat Discharge provider: Jenni Amato PA-C Summary Hospital Course Discharge Diagnosis: Status post TLIF Hospital Course: Patient was admitted for TLIF with Dr. Beth. Hospital course was unremarkable. On postop day 2 she was ready to go home. She is eating and voiding without difficulty or assistance. She mobilized with physical therapy throughout her stay. Status at Discharge Functional status at discharge: uses cane/walker Exam Vital Signs (past 8 hours): - 01/11/20 00:00 01/11/20 04:47 Temperature 97.9 F 97.8 F Pulse Rate 96 H 86 Respiratory Rate 16 16 Blood Pressure 114/70 129/90 Pulse Oximetry 94 98 Oxygen Delivery Method Room Air Oxygen Flow Rate 0 Narrative Exam Narrative: Patient is sitting at bedside chair no acute distress. She is alert orient x3. Calves are soft, compressible, nontender bilaterally. Sensation intact to light touch throughout bilateral lower extremities. Her zina n has been well controlled with Sanford. She has required IV Dilaudid at times. She notes most of her pain is radiating into her bilateral hips. No difficulty taking steroids. She did take a dose steroids prior to discharge today. Objective Labs Result Diagrams: 01/10/20 06:53 Labs: Laboratory Results - last 24 hr 01/10/20 06:53 Hgb 13.2 Hct 39.3 Discharge Plan Discharge Plan Patient Disposition: Home Discharge orders & Medications Prescriptions: New docusate sodium [DOK] 100 mg Capsule 100 mg PO BID Qty: 20 RF: 0 hydroxyzine pamoate 25 mg Capsule 25 mg PO Q6-8H PRN (Reason: Nausea And Vomiting) Qty: 30 RF: 0 hydrocodone-acetaminophen [Sanford] 10-325 mg tablet 1 tab PO Q4-6H PRN (Reason: pain) Qty: 60 RF: 0 Continued albuterol sulfate [Ventolin HFA] 90 mcg/actuation Hfa Aerosol Inhaler 2 puff INHALATION Q4-6H PRN (Reason: COPD/Emphysema) RF: 0 pregabalin [Lyrica] 75 mg Capsule 150 mg PO BID RF: 0 acetaminophen 325 mg Tablet 325 mg PO Q6HR PRN (Reason: Pain, Mild) Qty: 0 RF: 0 fluoxetine [Prozac] 40 mg Capsule 80 mg PO QAM RF: 0 clonidine HCl 0.1 mg Tablet 0.1 mg PO BEDTIME RF: 0 gabapentin 300 mg Capsule 300 mg PO TID RF: 0 lorazepam 1 mg Tablet 1 mg PO TID RF: 0 aripiprazole [Abilify] 10 mg Tablet 10 mg PO BEDTIME RF: 0 pregabalin 150 mg Capsule 300 mg PO BEDTIME RF: 0 Discontinued tramadol 50 mg Tablet 50 mg PO Q6H PRN (Reason: Pain (Scale Score 1-3)) RF: 0 Follow up/Referrals: Karyna Beth MD [Physician] - 2 Weeks Doctor Wood MD [Primary Care Provider] - Diet/Activity/Treatments Activity: No excessive bending, lifting, or twisting. Cold/Heat Therapy: as needed Skin/Wound/Dressing Care Report to your healthcare provider any signs of infection, such as:: chills, fever and increased pain Discharge Data Primary Care Provider: Doctor Israel Quality VTE Deep Vein Thrombosis/Pulmonary Embolism Present on Admission: No
[2020-01-11 08:16] VITALS: BP 117/74; PULSE 92; RESP 16; TEMP 36.6; O2SAT 92
--- NOTE | 2020-01-11 08:27 | PC.NURSE ---
Patient is doing well this am. She states that she is feelng better. Denies pain when doing assessment. O numbness or tingling mentioned. Patient will be taking norco for pain management and also will be given a dose of decadron. Using walker when ambulating. She will most likely be discharged home today. Lower back dressing will also be changed to water proof dressing before discharge.
--- NOTE | 2020-01-11 08:35 | OT.IP.TRT ---
Current Diagnoses Spinal stenosis, lumbar region without neurogenic claudication (01/09/20) Other mechanical complication of other internal orthopedic devices, implants and grafts, initial encounter (01/09/20) Surgery Performed Operation Date: 01/09/20 07:45 Actual Procedures p L3-4 TLIF,L4-S1 lumbar HWR,exploration of fusion,repeat laminectomy,reinsertion of hwr,L3-S1 PSF w/instrumenation(Not Applicable) - Karyna Beth MD Occupational Therapy Treatment Note M2 OT-IP Current Condition Start: 01/10/20 12:28 Freq: Status: Active Protocol: Document 01/10/20 11:40 RM (Rec: 01/10/20 12:57 RM [id number]) Occupational Therapy Current Condition Current Condition Evaluation Date 01/10/20 Treatment Diagnosis multi-level lumbar stenosis and spondylosis Diagnosis Onset Date 01/09/20 Post Operative Precautions Lumbar Precautions Log Roll,No Twisting,Limit Bending,Lifting Restriction of 10 lbs,Gait Belt above Incisional Area Weight Bearing Status Weight Bearing Status Weight Bear as Tolerated M3 OT- IP Subjective and Pain Start: 01/10/20 12:28 Freq: Status: Active Protocol: Document 01/11/20 09:04 CCC (Rec: 01/11/20 09:06 CCC [email or web address]) OT- Subjective Occupational Therapy Visit Type Type Treatment Note Visit Start Time 08:35 Visit Stop Time 08:43 Total Visit Minutes 8 Occupational Therapy Visit Comments Patient Comments Pt not wanting to shower at this time but having questions regarding toileting needs for OT. Patient/Caregiver Goals TO go home. OT Pain Assessment Pain When Pain Assessed At Rest Pain Present Pain Present Denied Pain M4 OT- IP ADL's Start: 01/10/20 12:28 Freq: Status: Active Protocol: Document 01/11/20 09:04 CCC (Rec: 01/11/20 09:06 CCC [email or web address]) OT ADL-Toileting Comments OT Toileting Comments Pt states unable to reach to do pericare needs from the back. Went over and gave pt information regarding toilet paper aid which will help best follow back precautions and ability for her to do her own hygiene needs. M5 OT- IP IADL's Start: 01/10/20 12:28 Freq: Status: Active Protocol: Document 01/10/20 11:40 RM (Rec: 01/10/20 12:57 RM [id number]) OT-Instrumental Activities of Daily Living Deficits IADL Deficits Identified Deficits Meal Preparation Meal Preparation Caregiver Provides Assist Meal Preparation Comments Able to participate with some meal prep tasks in sitting. Marketing Performance Analyst Marketing Performance Analyst Caregiver Provides Assist Driving Driving Comments Pt reports driving prior to surgery. M6 OT- IP Functional Cognition Start: 01/10/20 12:28 Freq: Status: Active Protocol: Document 01/10/20 11:40 RM (Rec: 01/10/20 12:57 RM [id number]) Cognitive Factors Limiting Selfcare Function Cognitive Ability Level of Alertness Alert Patient Orientation Name,Month,Date,Year,Place, Situation Attention Span Ability Capable of Focused Attention, Capable of Sustained Attention Ability to Follow Commands Able to Follow Multi-Step Commands Memory Description No Deficits Noted Safety Awareness No Deficits Noted Problem Solving Ability No deficits Noted Executive Function Ability No Deficits Noted Abstract Thinking Ability No Deficits Noted OT- Vision and Hearing OT- Hearing Assessment OT- Hearing Assessment WFL OT- Vision Assessment Visual Acuity WFL M8 OT- IP Objective Assessments Start: 01/10/20 12:28 Freq: Status: Active Protocol: Document 01/10/20 11:40 RM (Rec: 01/10/20 12:57 RM [id number]) OT Gross Range of Motion Upper Extremity Range of Motion Assessment Within Functional Limits OT Strength Upper Extremity Strength Assessment Within Functional Limits Hand Retail Event Assistant Strength Hand Dominance Right OT-Muscle Tone Assessment Muscle Tone WNL Yes M9 OT- IP Assessment and Plan Start: 01/10/20 12:28 Freq: Status: Active Protocol: Document 01/11/20 09:04 CCC (Rec: 01/11/20 09:06 CCC [email or web address]) OT Summary Assessment and Plan Discharge Recommendations OT Discharge Recommendations Home with Assistance Transportation Needs at Discharge Private Vehicle
[2020-01-11] MEDS: FLUoxetine 20 MG CAPSULE 80 MG PO (10:16)
[2020-01-11] MEDS: GABAPENTIN 300 MG CAPSULE PO (10:16)
[2020-01-11] MEDS: DOCUSATE 100 MG CAPSULE PO (10:16)
[2020-01-11] MEDS: PREGABALIN 75 MG CAPSULE 150 MG PO (10:24)
--- NOTE | 2020-01-11 10:25 | PT.IPTN ---
Current Diagnoses Spinal stenosis, lumbar region without neurogenic claudication (01/09/20) Other mechanical complication of other internal orthopedic devices, implants and grafts, initial encounter (01/09/20) Surgery Performed Operation Date: 01/09/20 07:45 Actual Procedures p L3-4 TLIF,L4-S1 lumbar HWR,exploration of fusion,repeat laminectomy,reinsertion of hwr,L3-S1 PSF w/instrumenation(Not Applicable) - Karyna Beth MD Physical Therapy Treatment Note M2 PT-IP Current Condition Start: 01/09/20 15:37 Freq: NEEDED Status: Active Protocol: Document 01/09/20 17:08 AW (Rec: 01/09/20 17:27 AW [email or web address]) Physical Therapy Current Condition Current Condition Evaluation Date 01/09/20 Treatment Diagnosis s/p revision L4-S1 TLIF; CMT; difficulty in walking. Onset Date 01/09/20 Precautions Lumbar Precautions Log Roll,No Twisting,Limit Bending,Lifting Restriction of 10 lbs,Gait Belt above Incisional Area Other Precautions history of recurrent falls Weight Bearing Status Weight Bearing Status Weight Bear as Tolerated M3 PT-IP Subjective Start: 01/09/20 15:37 Freq: NEEDED Status: Active Protocol: Document 01/11/20 10:02 SP (Rec: 01/11/20 11:24 SP [id number]) Subjective Physical Therapy Visit Type Type Treatment Note Visit Start Time 10:02 Visit Stop Time 10:25 Total Visit Minutes 23 Notes Wil[place] completed caregiver training, provided physical support and cuing throughout tx needed. Number of GLYCERINE PLANT OPERATOR Visits 1 Physical Therapy Visit Comments Patient Comments Pt agreeable to working with therapy. Therapy Pain Assessment Pain When Pain Assessed At Rest Pain Present Pain Present Pain Reported Location Posterior Back Intensity 6 Scale Used Numeric (0 - 10) Pain Management Techniques Apply Cold,Re-positioning, Timing of Activity with Medications M4 PT-IP Mobility and Gait Start: 01/09/20 15:37 Freq: NEEDED Status: Active Protocol: Document 01/11/20 10:02 SP (Rec: 01/11/20 11:24 SP [id number]) PT-Bed Mobility Assessment Rolling Type of Rolling Log Rolling,Roll to Right,Roll to Left Level of Assist Standby Assistance Supine to Sit Supine to Sit Standby Assistance Sit to Supine Sit to Supine Standby Assistance Scooting Scooting to Edge of Bed Standby Assistance PT-Transfer Assessment Sit to and From Stand Sit to and from Stand Standby Assistance,Use of Upper Extremities Equipment Transfer Assistive Device Gait Belt,4 Wheeled Walker Orthotic/Prosthetic Devices or Brace: No Transfers Transfer Destination Bed,Chair Transfer Technique pt ambulated with 4WW Transfer Ability Level of Assist Standby Assistance,Use of Upper Extremities Comments Mobility Comments Pt was up in chair and in room when arrived. Instructed on proper use of gait belt, donned on his pre activity. Proper use of 4WW brake mgt pre standing. Sit<> stand from chair UE WB on chair arms. Pt ambulated into bathroom to assess threshold mgt ( assimulate home 2 threshold enterance) using 4WW and MIn assist for assisting wheel mgt while patient had brake on for safety support over/ back CGA and slow pivot turn with cue x1 for small step turns to maintain spinal precautions no twisting and slow pacing for safety good carryover demonstration. Pt walk further into hallway approx 240 ft 4WW SBA given by , GLYCERINE PLANT OPERATOR occasional cuing for upright posture, adjusted 4WW positioning to allow for improved posture and education to assess personal 4WW at home for proper height with verbal understanding. Pt completed SPT using 4WW with good mgt and brake mgt pre sitting and reaching back for slow descent. sitting<> supine SBA by and proper log roll R and L while maintaining precautions. SPT bed >chair and proper body mechanics and 4WW brake mgt. Pt was seated in chair wtih call light and all needs in reach before left, in room. GLYCERINE PLANT OPERATOR discussed with nursing pt is ok to return home with her to assist her when medically stable. Pain 6/10 pre and during mobilty and requesting medication for assist. Gait Assessment Gait Gait Assistance Required: Standby Assistance,1 Person Assist Distance (Feet) 240 Able to Maintain Weight Bearing Status Yes During Gait Assistive Devices Assistive Device Gait Belt,4 Wheeled Walker Orthotic/Prosthetic Devices or Brace: No Gait Deviations General Gait Pattern Antalgic,Decreased Stride Length,Decreased Feet Clearance,Flexed Trunk,Wide Based Gait Factors Limiting Gait Function Factors Limiting Gait Function Decreased Sensation,Decreased Strength,Limited Range of Motion,Pain,Poor Balance Comments Gait Comments see mobility comments. Stair Climbing Assessment Comments Stair Climbing Comments Not assessed. No stairs at home. PT-Balance Assessment Sitting Balance and Reactions Static Sitting Balance Ability Good Dynamic Sitting Balance Ability Good Standing Balance and Reactions Static Standing Balance Ability Good Dynamic Standing Balance Ability Good Device Used 4WW M5 PT-IP Objective Assessments Start: 01/09/20 15:37 Freq: NEEDED Status: Active Protocol: Document 01/09/20 17:08 AW (Rec: 01/09/20 17:27 AW [email or web address]) Orientation Orientation/Cognition Level of Alertness Alert Orientation Name,Day of Week,Place, Situation Language Function Ability No Deficits Noted Safety Awareness Understands Safety Issues Memory Description No Deficits Noted Gross Range of Motion Upper Extremity ROM Assessment Within Functional Limits Lower Extremity ROM Assessment Bilaterally Impaired Impairments Pt lacks active dorsiflexion with right more affected than left. Strength Lower Extremity Strength Assessment Bilaterally Impaired Hip 4/5 Knee 4+/5 Ankle 4-/5 Coordination Assessment Gross Coordination Gross Coordination WNL Sensation Assessment Sensation Gross Sensation Right LE Impaired,Left LE Impaired Light Touch Impaired Proprioception (Position) Impaired Sensation Description Numbness Muscle Tone Muscle Tone WNL Yes M6 PT-IP Treatment Start: 01/09/20 15:37 Freq: NEEDED Status: Active Protocol: Document 01/11/20 10:02 SP (Rec: 01/11/20 11:24 SP [id number]) Physical Therapy Treatment Education Education Provided Precautions,Post-Op Packet, Safety Other Treatments Other Treatment Performed Pt is able to recall 3/3 back precautions, required occasional cues to maintain neutral spine during pivot turns and upright posture and relaxed shoulders during ambulation. M7 PT-IP Assessment and Plan Start: 01/09/20 15:37 Freq: NEEDED Status: Active Protocol: Document 01/11/20 10:02 SP (Rec: 01/11/20 11:24 SP [id number]) PT Summary Assessment and Plan Potential Rehabilitation Potential Good Status of Condition at Evaluation Stable Summary Impairments Pain,ROM,Strength,Balance, Sensation,Bed Mobility, Transfers,Gait,Activity Tolerance Progress Towards Goals Progressing Toward Goals Assessment Summary Pt requiring SBA for all mobility, pt able to ambulate in cast ~240ft SBA with 4WW. Pt recalled 3/3 back precautions. Pt is progressing towards goals and ok to return home with her to assist her when medically stable. Goals Bed Mobility Goal Independent Transfer Goal Independent,Four Wheeled Walker Gait Goal Independent,Four Wheel Walker Gait Distance 100 Other Goals - FWW if unsafe with 4WW 01/11/20 safe to use 4WW at home. Days to Meet Goals 2 Frequency of Treatment Frequency Of Treatment Twice a Day Treatment Plan Physical Therapy Treatment Plan Bed Mobility Training,Transfer Training,Gait Training, Therapeutic Exercise,Balance Retraining,Post Op Education, Discharge Planning,Hot or Cold Pack,Neuromuscular Re-ed Other Recommendations and Next Treatment gait with 4WW, review Focus precautions Recommendations To Nursing Amount of Assist Needed 1 Person Assist Discharge Recommendations PT Discharge Recommendations Home with Assistance Other Discharge Recommendations Out patient PT if feels requires more strengthening spinal stabilization. Transportation Needs at Discharge Private Vehicle
--- NOTE | 2020-01-11 10:39 | CM.DANOTE ---
Patient is a 44 year old female who was admitted on 01/09/20 for TLIF. Pt has MCR and FERNANDO for insurance and her PCP is not listed. EMR was reviewed. Per Ortho MD, pt tolerated her surgery well and is stable for discharge home today after further PT/OT. Per PT/OT, recommending safe d/c home with spouse assist and outpt PT. Pt resides in [place] with her spouse in a condo/apt and is mostly independent with ADL's at baseline and states spouse retired and available for assist if needed at d/c. Pt does not anticipate any further needs and is comfortable with d/c home today. Plan: Patient to d/c home via spouse POV and follow up outpt and no SW needs at this time. BRADEN Estevez Discharge Planning/Care Management CM Discharge Assessment Start: 01/11/20 10:38 Freq: Status: Active Protocol: Document 01/11/20 10:38 BF (Rec: 01/11/20 10:39 BF [id number]) Discharge Planning Assessment Assigned Supervisor Crack Off BRADEN Gilmore DPOA/Assigned Designee Name none Advance Directives? No Advance Directives on File No History Provided By Patient,Medical Record Has Patient been admitted in last 30 No days? Prior Living Arrangements Apartment/Condo Household Members spouse Type of transporation used prior to Drives own vehicle admit Independent with ADL's Yes Is patient alert and oriented? Yes Caregiver for Another No Patient/Family Preference OP PT Therapy Barriers to Discharge No Discharge Plan Home Transportation Arrangement Spouse can provide transport at d/c Referrals Initiated None needed Whiteboard Updated in Patient Room with Yes name and ext. # of Supervisor Crack Off Review Status In Process Please Provide Date Initial DC 01/11/20 Assessment Was Performed Next Review Type Continued Stay Review Pre-Anesthesia Assessment Start: 01/03/20 08:50 Freq: Status: Complete Protocol: Document 01/03/20 08:50 CAB (Rec: 01/03/20 09:52 CAB [id number]) Pre-Anesthesia Assessment Patient Information Reviewed Via Phone Assessment Assessment Completed With Patient Diagnostic Results BMP/CMP,CBC Comment Labs/EKG @ 12/22/19, COVID screen @ 01/06/20 Primary Care Provider None Seen Specialist in Last 12 Months Yes Specialist Seen Orthopedist,Other Comment Neurology Primary Language Tajik Preferred Language [place] [employer] Manager Required No Height 167.64 cm Weight 110.223 kg Body Mass Index (BMI) 39.2 Hearing Ability Normal Visual Impairment No Limitations Visual Assist None Dentition Type Teeth, Natural Present,Teeth, Missing Barriers to Learning Memory Other Aids No Hx Anesthesia Reactions No Hx Family Anesthesia Reaction No Hx Malignant Hyperthermia No Hx Blood Transfusions No Hx Blood Transfusion Reaction No Anesthesia Review Requested No alcohol intake current alcohol intake frequency a few times a week Smoking Status Current every day smoker Tobacco type cigarettes Smoking packs per day 0.5 Substance Use Type marijuana,prescription drug Comment Advised not to smoke marijuana 24 hours prior to surgery Pain Present Pain Reported Musculoskeletal Symptoms Abnormal Gait,Back Pain, Difficulty Walking,Joint Pain, Radiating Pain into Limb History of Falling (Recent or History of Yes ) Patient is completely paralyzed or No completely immobile Mental Status Oriented to own ability Is patient on oxygen? 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 No Cardiac Clearance Received Not Applicable Diet Type At Home Regular dysphagia No Gastrointestinal Symptoms Constipation Bladder Pattern Incontinent Urinary Catheter Present No Hx Urinary Self Catheterization No Diabetes No: Pre-diabetes Patient No Lactating No Hx Drug Resistant Organism No Presence of External or Internal Medical Yes: Lumbar hardware, screws/ Devices plates left foot Have you had any close contact with No someone diagnosed with COVID-19? Marital Status Lives With significant other Prior Living Arrangements Apartment/in3Dgalleryo Support System Significant Other Does the Patient Have Assistance After Yes Surgery Patient Discharge Plan Description Return Home Comment Pt advised 2 day length of stay per surgeon Feels Safe in Current Environment Yes Been Physically Hurt or Threatened By a No Person in Current Environment Do you have thoughts of harming yourself None or others? Are you currently considering suicide? No Do you have a plan to hurt yourself or No Plan others? Do You Have Any Spiritual Beliefs That No May Affect Your HC Choices? Do You Have Any Cultural Practices That No May Affect Your HC Choices? Comment [employer] Who Can We Speak to About Patient's Care Family, friends Identifying Code for Release of Patient Declines to issue Information Health Care Proxy/Next of Kin Wilton (S.O.) Health Care Proxy Emergency Contact Name Wilton (S.O.) Emergency Contact Advance Directives? No Advance Directives on File No Power of [place] Cutter No PAC Instructions Durable medical equipment, Medications to take/avoid, Nasal antibiotic,No ETOH/ petroleum product on skin DOS, NPO,Pre-surgical wash,Sturdy shoes/comfortable clothes,Do not bring valuables and remove jewelry
[2020-01-11] MEDS: dexAMETHasone 4 MG TABLET 10 MG PO (11:04)
== END 2020-01-11 11:55 | disposition home or self-care (01) | DRG 454 ==
PROVIDERS: Admitting Provider Orthopaedic Surgery Orthopaedic Surgery of the Spine; Referring Provider Orthopaedic Surgery Orthopaedic Surgery of the Spine; Visit Provider Orthopaedic Surgery Orthopaedic Surgery of the Spine
PROC: 0SG00AJ Fusion of Lumbar Vertebral Joint with Interbody Fusion Device, Posterior Approach, Anterior Column, Open Approach (ICD-10-PCS; principal; 2020-01-09 07:45)
DX: M48.061 Spinal stenosis, lumbar region without neurogenic claudication (principal); T84.498A Other mechanical complication of other internal orthopedic devices, implants and grafts, initial encounter; M96.0 Pseudarthrosis after fusion or arthrodesis; I10 Essential (primary) hypertension; E11.9 Type 2 diabetes mellitus without complications; E66.9 Obesity, unspecified; F17.210 Nicotine dependence, cigarettes, uncomplicated; Z68.39 Body mass index [BMI] 39.0-39.9, adult; M48.07 Spinal stenosis, lumbosacral region; M47.816 Spondylosis without myelopathy or radiculopathy, lumbar region; M47.817 Spondylosis without myelopathy or radiculopathy, lumbosacral region; Z11.59 Encounter for screening for other viral diseases
CPT/HCPCS: 36415; 72100; 76000; 85014; 85018; 87635; 94762; 97116; 97162; 97165; 97530; 97535; C1776; A9270; C9290; J0330; J0690; J1100; J1170; J2405; J2704; J2765; J3010; J7613

== ENCOUNTER → 2020-05-04 08:17 | Outpatient (CLI) | payer MEDICARE, MEDICAID, SELFPAY ==
[2020-01-09 14:04] VITALS: BMI 39.4
--- NOTE | 2020-05-04 | DI.MG.S_ITS ---
BILATERAL DIGITAL DIAGNOSTIC MAMMOGRAM 3D/2D SHORT-TERM FOLLOW-UP: 05/04/2020 CLINICAL: Short term follow up of the left breast, due for bilateral imaging. Comparison is made to exams dated: 04/27/2019 mammogram, 08/20/2018 mammogram, 02/03/2018 mammogram, 01/21/2018 mammogram, and 04/27/2019 [facility]. The tissue of both breasts is heterogeneously dense. This may lower the sensitivity of mammography. There is an asymmetry in the left breast at 5 o'clock posterior depth. This is less prominent. No other significant masses, calcifications, or other findings are seen in either breast. IMPRESSION: INCOMPLETE: NEEDS ADDITIONAL IMAGING EVALUATION The asymmetry in the left breast remains indeterminate. A targeted ultrasound is recommended and will immediately follow. This exam was interpreted at Station ID: [id number]. NOTE: For mammograms, a report in lay terms will be sent to the patient. Approximately 15% of breast malignancies will not be visualized mammographically. In the management of a palpable breast mass, a negative mammogram must not discourage biopsy of a clinically suspicious lesion. Electronically Signed By: Erich Casanova M.D. slc/:05/04/2020 08:55:34 ACR BI-RADS Category 0: Incomplete [id number]
--- NOTE | 2020-05-04 | DI.US.S_ITS ---
LIMITED ULTRASOUND OF LEFT BREAST: 05/04/2020 CLINICAL: Patient returns today to evaluate a focal asymmetry in the left breast. Comparison is made to exams dated: 05/04/2020 mammogram, 04/27/2019 ultrasound, 04/27/2019 mammogram, 08/20/2018 ultrasound, 08/20/2018 mammogram, and 02/03/2018 [facility]. Color flow and real-time ultrasound of the left breast 5-6 o'clock region were performed. Smith scale images of the real-time examination were reviewed. There is a benign 0.5 cm x 0.5 cm x 0.3 cm oval cyst in the left breast at 5 o'clock posterior depth 6 cm from the nipple. This oval cyst is hypoechoic. This correlates with mammography findings. Color flow imaging demonstrates that there is no vascularity present. IMPRESSION: BENIGN There is no sonographic evidence of malignancy. The 0.5 cm complicated cyst in the left breast demonstrates 2 years long-term stability and is benign. A 1 year screening mammogram is recommended. Exam findings were conveyed to the patient. This exam was interpreted at Station ID: [id number]. Electronically Signed By: Erich Casanova M.D. slc/:05/04/2020 09:50:30 letter sent: Normal Exam Ultrasound BI-RADS: 2 Benign
== END ==
PROVIDERS: PCP Nurse Practitioner Family; Referring Provider Nurse Practitioner Family; Visit Provider Nurse Practitioner Family
DX: R92.8 Other abnormal and inconclusive findings on diagnostic imaging of breast (principal); N60.02 Solitary cyst of left breast
CPT/HCPCS: 76642; 77066; G0279

== ENCOUNTER → 2021-03-29 09:18 | Outpatient (CLI) | payer MEDICARE, MEDICAID, SELFPAY ==
[2020-01-09 14:04] VITALS: BMI 39.4
[2021-03-29 12:06] LABS: COVID19 -Nasal RAPID Negative (Negative)
== END ==
PROVIDERS: PCP Nurse Practitioner Family; Visit Provider Surgery
DX: Z01.812 Encounter for preprocedural laboratory examination (principal); Z20.822 Contact with and (suspected) exposure to COVID-19
CPT/HCPCS: 87635; C9803

== ENCOUNTER 2021-03-31 12:52 | Emergency (ER) | payer MEDICARE, MEDICAID, SELFPAY ==
[2020-01-09 14:04] VITALS: BMI 39.4
[2021-03-31 13:20] VITALS: BP 143/75; PULSE 89; RESP 18; TEMP 37.2; O2SAT 98; BMI 37.5
--- NOTE | 2021-03-31 13:24 | DI.RAD.S_ITS ---
PROCEDURE: XR FOOT LT MIN 3V INDICATIONS: crack noise with pain TECHNIQUE: 3 views of the foot were acquired. COMPARISON: [facility], , FOOT 3V LEFT, 05/22/2017, 8:30. FINDINGS: Bones: No fractures or dislocations. Amputation of the 5th digit and distal 5th metatarsal, new since the prior examination. Healed fracture of the distal 2nd metatarsal. Surgical fixation hardware within the proximal 1st metatarsal. Erosions of the distal aspect of the remaining 5th metatarsal. Calcaneocuboid arthrodesis hardware is present. No change in fractured screw fragment traversing the arthrodesis. No suspicious bony lesions. Soft tissues: No tibiotalar joint effusion. Achilles tendon appears normal. IMPRESSION: 1. Postsurgical sequelae. 2. Fractured calcaneocuboid hardware. 3. Erosion of the remaining aspect of the distal 5th metatarsal, possibly indicating osteomyelitis. Dictated by: Elissa Aburto M.D. on 03/31/2021 at 12:49 Approved by: Elissa Aburto M.D. on 03/31/2021 at 12:53
[2021-03-31 13:49] VITALS: BP 144/67; PULSE 94; O2SAT 98
[2021-03-31 14:00] VITALS: PULSE 84; O2SAT 97
--- NOTE | 2021-03-31 14:11 | ED_ITS ---
HPI - Extremity Injury (Lower) <Lucinda Hardy, [facility] - Last Filed: 03/31/21 17:51> General Chief Complaint: Extremity Injury, Lower Stated Complaint: Twisted left foot. Time Seen by Provider: 03/31/21 14:09 Source: patient Mode of arrival: Wheelchair History of Present Illness HPI Narrative: Female with history of diabetes, Nmicogb-Tofwm-Fwohj, and left 5th toe amputation secondary to diabetic neuropathy, current everyday smoker, and multiple prior surgeries to her left foot presents to the emergency department after feeling a crack and pop in her left foot while standing in the kitchen today. She reports that yesterday she rolled her foot and felt a crack and pop as well but today after the crack and pop while standing she was unable to bear weight on her left foot afterwards. She has kgsa-na-[id number] swelling of her left midfoot, no signs of cellulitis or erythema. She does not have any discoloration to his left foot. No other symptoms, denies any knee pain, reports she is just unable to bear weight after multiple attempts. She has seen Dr. Elkins with orthopedics in [place] for her left foot most recently. She reports that her blood sugars have been under control, no changes to her health recently. Related Data Home Medications Medication Instructions Recorded Confirmed aripiprazole 10 mg tablet (Abilify) 10 mg PO BEDTIME 01/03/20 03/28/21 clonidine HCl 0.1 mg tablet 0.1 mg PO BEDTIME 01/03/20 03/28/21 fluoxetine 40 mg capsule (Prozac) 80 mg PO QAM 01/03/20 03/28/21 doxycycline hyclate 100 mg capsule 100 mg PO BID 03/28/21 03/28/21 metformin 500 mg tablet 500 mg PO DAILY 03/28/21 03/28/21 pregabalin 150 mg capsule 150 mg PO BID 03/28/21 03/28/21 Previous Rx's Medication Instructions Recorded acetaminophen 325 mg tablet 325 mg PO Q6HR PRN #0 tab 09/10/17 hydrocodone 10 mg-acetaminophen 1 tab PO Q4-6H PRN #60 tab 01/11/20 325 mg tablet ([place]) hydrocodone 5 mg-acetaminophen 325 1 tab PO BID PRN #14 tab 03/31/21 mg tablet Allergies Allergy/AdvReac Type Severity Reaction Status Date / Time codeine [CODEINE] Allergy Intermediate Itching, Verified 03/28/21 10:34 vomiting oxycodone [OXYCODONE] Allergy Mild ITCHING Verified 03/28/21 10:34 Review of Systems <MINI Villatoro - Last Filed: 03/31/21 17:51> Review of Systems Narrative: General: denies fever, chills Head/Neck: denies headache, neck pain Eyes: denies visual changes, eye pain Cardio: denies chest pain, palpitations Respiratory: denies shortness of breath, cough GI: denies abdominal pain, nausea, vomiting, or diarrhea : denies dysuria, hematuria MSK: denies joint pain or muscle weakness, endorses left foot pain and inability to bear weight Skin: denies rash, itching, wound, redness, swelling Neuro: denies numbness, tingling Patient History <MINI Villatoro - Last Filed: 03/31/21 17:51> Medical History Bipolar 1 disorder, depressed, mild Charcot Belkis Tooth muscular atrophy Pre-diabetes PTSD (post-traumatic stress disorder) (~2018) Smoker Surgical History History of bladder surgery History of hysterectomy History of laminectomy History of lumbar fusion (08/30/17) S/P foot surgery, left S/P foot surgery, right Social History household members: spouse Smoking Status: Current every day smoker alcohol intake: current Smoking Status: Current every day smoker alcohol intake frequency: holidays/special occasions only Substance Use Type: marijuana and prescription drug Exam <MINI Villatoro - Last Filed: 03/31/21 17:51> Narrative Exam Narrative: Independently reviewed vitals signs and nursing notes. General: Awake, alert, nontoxic, no cardiorespiratory distress Head/Neck: Atraumatic, neck full range of motion Eyes: EOMI, conjunctiva normal Nose: nares patent, no rhinorrhea Mouth/Throat: moist mucus membranes, posterior pharynx normal, no oral lesions Cardio: Regular rate and rhythm, no peripheral edema Respiratory: respirations unlabored without wheezing, stridor, or rales. No retractions. GI: Abdomen soft, nontender MSK: Moves all extremities, neurovascularly intact, left foot with moderate edema on her left mid foot extending into the plantar aspect, no discoloration, no wound, patient has mild to moderate neuropathy of her left foot with decreased sensation, no changes to that, PT and DP pulses are 2+, her cap refill of her left foot is less than 2 seconds, no ecchymosis or erythema. Skin: Normal capillary refill, no rash Neuro: Normal speech and cognition, normal gait Initial Vital Signs Initial Vital Signs: Vital Signs Temperature 98.9 F 03/31/21 13:20 Pulse Rate 89 03/31/21 13:20 Respiratory Rate 18 03/31/21 13:20 Blood Pressure 143/75 H 03/31/21 13:20 Pulse Oximetry 98 03/31/21 13:20 Course <MINI Villatoro - Last Filed: 03/31/21 17:51> Orders Ordered: ED Orders 03/31/21 13:24 XR foot LT min 3V Stat 03/31/21 14:43 MR foot LT wo con Stat Discontinued Medications Hydrocodone Bitart/Acetaminophen (Hydrocodone/Acet 5/325 Tablet) 1 tab PO NOW ONE Stop: 03/31/21 14:48 Last Admin: 03/31/21 14:59 Dose: 1 tab Documented by: RAULITO Hydrocodone Bitart/Acetaminophen (Hydrocodone/Acet 5/325 Tablet) 1 tab PO NOW ONE Stop: 03/31/21 18:14 Last Admin: 03/31/21 18:16 Dose: 1 tab Documented by: RAULITO Vital Signs Vital signs: Vital Signs - 8 hr 03/31/21 13:20 03/31/21 13:49 03/31/21 14:00 Temperature 98.9 F Pulse Rate 89 94 H 84 Respiratory Rate 18 Blood Pressure 143/75 H 144/67 H Pulse Oximetry 98 98 97 03/31/21 14:30 03/31/21 17:38 Temperature Pulse Rate 85 85 Respiratory Rate Blood Pressure 133/78 Pulse Oximetry 99 94 MDM - Extremity Injury (Lower) <MINI Villatoro - Last Filed: 03/31/21 17:51> Imaging Data Extremity x-ray #1: Radiologist's Impression: PROCEDURE:? XR FOOT LT MIN 3V ? INDICATIONS:? crack noise with pain ? TECHNIQUE:? 3 views of the foot were acquired.? ? COMPARISON:? [facility], CR, FOOT 3V LEFT, 05/22/2017, 8:30. ? FINDINGS:? ? Bones:? No fractures or dislocations.? Amputation of the 5th digit and distal 5th metatarsal, new since the prior examination.? Healed fracture of the distal 2nd metatarsal.? Surgical fixation hardware within the proximal 1st metatarsal.? Erosions of the distal aspect of the remaining 5th metatarsal.? Calcaneocuboid arthrodesis hardware is present.? No change in fractured screw fragment traversing the arthrodesis.? No suspicious bony lesions.? ? Soft tissues:? No tibiotalar joint effusion.? Achilles tendon appears normal.? ? ? IMPRESSION:? 1. Postsurgical sequelae. 2. Fractured calcaneocuboid hardware. 3. Erosion of the remaining aspect of the distal 5th metatarsal, possibly indicating osteomyelitis.? ? ? Dictated by: Elissa Aburto M.D. on 03/31/2021 at 12:49 ? ? Approved by: Elissa Aburto M.D. on 03/31/2021 at 12:53 ? MRI foot: Radiologist's Impression: PROCEDURE:? MR FOOT LT WO CON ? INDICATIONS:? post surgical, felt pop and c/f osteomyelitis 5th metatarsal. Left arch pain ? TECHNIQUE:? Noncontrast sagittal T1 spin echo and T2 fast spin echo with fat saturation, long-axis T1 spin echo and T2 fast spin echo with fat saturation, short-axis T1 spin echo and T2 fast spin echo with fat saturation through the forefoot.? ? COMPARISON:? [facility], [facility], XR FOOT LT MIN 3V, 03/31/2021, 13:25. ? FINDINGS:? There is extensive edema and reticular fat stranding in the midfoot and anterior hindfoot.? Increased T2 signal of the plantar soft tissues including involvement of the plantar ligamentous complexes and musculature, extending deep to the level of the tarsus. ?Fluid signal extends between the 2/3 and 3/4 metatarsal heads as well as between the cuneiform.? Adjacent to these areas of fluid signal there are cortical disruptions and diffusely low T1 marrow signal intensity in this region.? Findings are sug gestive of osteomyelitis. ? IMPRESSION:? Findings suggestive of osteomyelitis.? Postcontrast examination is recommended. ? ? Dictated by: Pj Mcconnell M.D. on 03/31/2021 at 16:51 ? ? Approved by: Pj Mcconnell M.D. on 03/31/2021 at 16:58 ? MDM Narrative Medical decision making narrative: 45-year-old female with history of diabetes type 2, with diabetic neuropathy and prior left foot surgeries, Rxmtnjv-Gbfen-Khste disease presents to the emergency department with concern over her left foot hardware with most recent left foot surgery 3 months ago. She reports that she felt a crack and pop and reports it feels like her arch has fallen. Patient's left foot x-ray was pertinent for possible erosion of the 5th metatarsal, distal aspect, possibly indicating osteomyelitis. No changes to her left foot hardware visualized on x- ray. Left foot MRI was obtained without contrast showing extensive edema and reticular fat stranding in the midfoot and anterior hindfoot.? Increased T2 signal of the plantar soft tissues including involvement of the plantar ligamentous complexes and musculature, extending deep to the level of the tarsus. ?Fluid signal extends between the 2/3 and 3/4 metatarsal heads as well as between the cuneiform.? Adjacent to these areas of fluid signal there are cortical disruptions and diffusely low T1 marrow signal intensity in this region.? Findings are suggestive of osteomyelitis. Consult with Dr Elkins her orthopedist and most recent foot surgeon who was told of her MRI, as well as her exam. Patient does not have any wound on her left foot, there is no ulceration, redness, swelling, skin color changes or anything consistent with a diabetic ulcer leading to osteomyelitis of her foot. The indication for possible mild osteomyelitis on her MRI could have been near for months previous to this exam. Dr. Elkins and would like her to wear boot, be nonweightbearing on that side as much as possible, and follow-up in the clinic. There is no indication for antibiotics at this time, patient does not have any signs of an infection. She was given pain control, instructed to follow-up with him next week, and she understands to return to the emergency department she has any worsening of her symptoms. Patient is appropriate and amenable to discharge home. Vital signs are stable on repeat examination is unremarkable. Patient has been informed of results. Patient has been given strict return to ER precautions for any new or worsening symptoms. Patient understands to follow up closely with outpatient providers as instructed. Patient understands plan and agrees to discharge home. All questions and concerns answered at this time. Discharge Plan Departure Patient Disposition: Home Clinical Impression: Acute foot pain Qualifiers: Laterality: left Qualified Code(s): M79.672 - Pain in left foot Activity Restrictions/Additional Instructions: *You have been diagnosed with foot pain. There are no signs of infection, so you do not need to start antibiotics for a possible osteomyelitis infection. Please follow-up with Dr. Elkins next week. Please wear your boot the to have a home, you may use your orthotics to make it more comfortable. Ensure it is the boot with a hard sole. Good luck with your colonoscopy cleanse, have called in pain medication for you to your pharmacy. It was a pleasure to meet you, then to for your patients, I hope that you feel better soon. *What to do: *Please continue to take your regular medications as directed. [x ] New medication prescriptions sent to your pharmacy: [ [facility]] [ ] New medication written as a paper prescription [ ] No new medications given *Please follow up with your primary care provider in 2-3 days, call for an appointment. Let them know you were seen in the Emergency Department and that we ask that you be seen in follow up. We will electronically transmit a record of today's note if your PCP is in our system *If you do not have a primary care provider please contact the [facility] Resource line at [phone]. They will ask some questions about your medical history and help get you set up with a doctor in the community. *Return to Emergency Department if you should have any new, worsening or concerning symptoms, such as [fever greater than 101F, chills, worsening pain, persistent vomiting or other bothersome symptoms] Prescriptions: New hydrocodone-acetaminophen 5-325 mg tablet 1 tab PO BID PRN (Reason: pain) Qty: 14 0RF No Action metformin 500 mg tablet 500 mg PO DAILY 0RF doxycycline hyclate 100 mg capsule 100 mg PO BID 0RF pregabalin 150 mg capsule 150 mg PO BID 0RF acetaminophen 325 mg Tablet 325 mg PO Q6HR PRN (Reason: Pain, Mild) Qty: 0 0RF fluoxetine [Prozac] 40 mg Capsule 80 mg PO QAM 0RF clonidine HCl 0.1 mg Tablet 0.1 mg PO BEDTIME 0RF aripiprazole [Abilify] 10 mg Tablet 10 mg PO BEDTIME 0RF hydrocodone-acetaminophen [[place]] 10-325 mg tablet 1 tab PO Q4-6H PRN (Reason: pain) Qty: 60 0RF Rx Instructions: 1-2 tabs po every 4-6 hours as needed for severe pain. exempt. post op pain. Referrals: Ramón Elkins MD [Non-Staff] - 3-5 days Maria Victoria Bryant ARNP [Primary Care Provider] -
[2021-03-31 14:30] VITALS: PULSE 85; O2SAT 99
--- NOTE | 2021-03-31 14:43 | DI.MRI.S_ITS ---
PROCEDURE: MRFOOT LT WO CON INDICATIONS: post surgical, felt pop and c/f osteomyelitis 5th metatarsal. Left arch pain TECHNIQUE: Noncontrast sagittal T1 spin echo and T2 fast spin echo with fat saturation, long-axis T1 spin echo and T2 fast spin echo with fat saturation, short-axis T1 spin echo and T2 fast spin echo with fat saturation through the forefoot. COMPARISON: [facility], CR, XR FOOT LT MIN 3V, 03/31/2021, 13:25. FINDINGS: There is extensive edema and reticular fat stranding in the midfoot and anterior hindfoot. Increased T2 signal of the plantar soft tissues including involvement of the plantar ligamentous complexes and musculature, extending deep to the level of the tarsus. Fluid signal extends between the 2/3 and 3/4 metatarsal heads as well as between the cuneiform. Adjacent to these areas of fluid signal there are cortical disruptions and diffusely low T1 marrow signal intensity in this region. Findings are suggestive of osteomyelitis. IMPRESSION: Findings suggestive of osteomyelitis. Postcontrast examination is recommended. Dictated by: Pj Mcconnell M.D. on 03/31/2021 at 16:51 Approved by: Pj Mcconnell M.D. on 03/31/2021 at 16:58
[2021-03-31] MEDS: HYDROCODONE/ACET 5/325 TABLET 1 TAB PO ×2 (14:59→18:16)
[2021-03-31 17:38] VITALS: BP 133/78; PULSE 85; O2SAT 94
== END 2021-03-31 18:18 | disposition home or self-care (01) ==
PROVIDERS: Emergency Provider Nurse Practitioner Critical Care Medicine; PCP Nurse Practitioner Family
DX: M79.672 Pain in left foot (principal); M79.89 Other specified soft tissue disorders
CPT/HCPCS: 73630; 73718; 99283; 99284

== ENCOUNTER 2021-04-01 06:07 | Day surgery (SDC) | payer MEDICARE, MEDICAID, SELFPAY ==
[2020-01-09 14:04] VITALS: BMI 39.4
--- NOTE | 2021-04-01 | PATH_ITS ---
[facility] Accession Number: [id number] . 01 Material submitted: . PART A: rectum - RECTAL BIOPSY PART B: colon - SIGMOID COLON POLYP . 01 Clinical history: . DX COLONOSCOPY . 02 Diagnosis: A. Rectal Biopsy: Moderate crypt architectural distortion. Moderate neutrophilic activity. Negative for dysplasia or malignancy. Please see comment. . B. Sigmoid Colon Polyp: Hyperplastic polyp. MRV 04/04/2021 1604 Local . 02 Comment: Part A. The differential diagnosis includes acute self-limited proctitis, infection, ischemia, colitis associated with NSAIDs, and idiopathic inflammatory bowel disease, in the appropriate clinical context. . . . . . 02 Electronically signed: . Tram Padgett MD, Pathologist NPI- [id number] . 01 Gross description: . A. Received in formalin, labeled rectal biopsy consists of two banda-pink fragments of soft tissue measuring 0.5 x 0.4 x 0.2 cm in aggregate. The specimen is entirely submitted in cassette A1. B. Received in formalin, labeled sigmoid colon polyp consists of a 0.2 x 0.2 x 0.1 cm banda fragment of soft tissue, which is entirely submitted in cassette B1. ([id number]) /MRV 04/02/20211952 Local . 02 Pathologist provided ICD-10: K62.5, K63.5 . 02 CPT . 066588, [id number] Performed at: 01 [facility] [address] [place] [address], [place], [place] [id number] MD Cole Del Valle MD Phone: [phone] Performed at: 02 [facility] [id number] [place] [id number] MD Lucinda Oliver MD Phone: [phone]
[2021-04-01 07:13] VITALS: BP 143/93; PULSE 100; RESP 18; TEMP 36.8; O2SAT 96; BMI 37.5
[2021-04-01] MEDS: LACTATED RINGERS 1,000 ML 200 ML IV (07:35)
--- NOTE | 2021-04-01 07:46 | PM.PREOP ---
Pre-operative Note Interval Note History & Physical reviewed/Exam performed by Physician: Yes Changes to H&P: No
[2021-04-01] MEDS: fentaNYL 250 MCG/5 ML INJ IV (08:02)
[2021-04-01] MEDS: MIDAZOLAM 5 MG/5 ML VIAL IV (08:03)
--- NOTE | 2021-04-01 08:10 | PM.OP.COLON ---
Operative Date/Time/Diagnoses Date of procedure: 04/01/21 Time of procedure: 08:10 Pre-op diagnosis: Rectal bleeding Post-op diagnosis: same Procedure & Clinicians Study performed: Colonoscopy Same procedure as scheduled: Yes Indications: Rectal bleeding Surgeon: Forest Roberson Procedure Notes Procedure in detail: Medications: Conscious sedation using 7mg IV midazolam and 250mcg IV of fentanyl The history and physical was performed/updated and the patient is ASA class is 2. The procedure was discussed in detail with the patient. Potential risks complications including infection, bleeding, missed diagnosis, perforation, need for surgery, and were explained. Their questions were answered and informed consent was obtained. Patient was brought to the procedure room and placed standard monitoring equipment. The patient's vital signs were monitored continuously throughout the entire procedure. Prior to starting time-out was performed. The patient was placed in the left lateral recumbent position. Procedural sedation was administered. Examination began with a thorough inspection of the perianal area there was no evidence of fissures, fistulae, external hemorrhoids or cutaneous malignancy. The colonoscopy scope was then placed into the anal canal and was advanced to the cecum, which was identified by the ileocecal valve, the appendiceal orifice and the confluence of the taenia. The scope was then slowly withdrawn examining colon thoroughly in all directions, irrigating it of any residual stool. FINDINGS 1. 3 mm polyp in the sigmoid colon removed with biopsy forceps 2. Distal rectum plaque of reddish brown discolored mucosa on the right lateral wall biopsy taken x2. 3. Grade 2 internal hemorrhoids The patient tolerated the procedure well. They will be discharged once criteria are met. The prep was of good/excellent quality. The withdrawl time was 7 minutes. The sedation time was 16 minutes. Specimen(s): other (Rectum, sigmoid polyp) Complications: none Impression: Colonic polyp Post-procedure Recommendations: Other recommendation(s) Plan for aftercare: Will notify with biopsy results Disposition: same day surgery
[2021-04-01 08:12] VITALS: BP 111/74; PULSE 93; RESP 15; TEMP 36.8; O2SAT 93
[2021-04-01 08:17] VITALS: BP 122/75; PULSE 93; PULSE 95; RESP 15; RESP 16; O2SAT 92; O2SAT 94
[2021-04-01 08:23] VITALS: BP 146/65; PULSE 99; RESP 17; TEMP 36.9; O2SAT 96
--- NOTE | 2021-04-01 08:31 | SUR.PHASEI ---
Stable PACU stay. To OPD when time up.
[2021-04-01 08:34] VITALS: BP 127/71; PULSE 93; RESP 17; O2SAT 96
[2021-04-01 08:45] VITALS: BP 119/82; PULSE 89; RESP 16; TEMP 36.9; O2SAT 97
== END 2021-04-01 08:50 | disposition home or self-care (01) ==
PROVIDERS: PCP Nurse Practitioner Family; Referring Provider Surgery; Visit Provider Surgery
PROC: 0DJD8ZZ Inspection of Lower Intestinal Tract, Via Natural or Artificial Opening Endoscopic (ICD-10-PCS; CPT 45378; principal; 2021-04-01 07:45)
DX: K62.5 Hemorrhage of anus and rectum (principal); K64.1 Second degree hemorrhoids; R73.03 Prediabetes; F17.210 Nicotine dependence, cigarettes, uncomplicated; G60.0 Hereditary motor and sensory neuropathy; F43.10 Post-traumatic stress disorder, unspecified; F31.9 Bipolar disorder, unspecified; K63.5 Polyp of colon; K62.1 Rectal polyp
CPT/HCPCS: 45380; 99152; J2250; J3010

== ENCOUNTER → 2021-05-07 07:59 | Outpatient (CLI) | payer MEDICARE, MEDICAID, SELFPAY ==
[2020-01-09 14:04] VITALS: BMI 39.4
--- NOTE | 2021-05-07 | DI.MG.S_ITS ---
BILATERAL DIGITAL SCREENING MAMMOGRAM 3D/2D WITH CAD: 05/07/2021 CLINICAL: Routine screening. Family history of breast cancer. Comparison is made to exams dated: 05/04/2020 mammogram, 04/27/2019 mammogram, and 01/21/2018 mammogram - [facility]. The tissue of both breasts is heterogeneously dense. This may lower the sensitivity of mammography. Current study was also evaluated with a Computer Aided Detection (CAD) system. There is an oval equal density focal asymmetry with an indistinct margin in the left breast at 4 o'clock middle depth. No other significant masses, calcifications, or other findings are seen in either breast. IMPRESSION: INCOMPLETE: NEEDS ADDITIONAL IMAGING EVALUATION The oval equal density focal asymmetry in the left breast is indeterminate. Mediolateral and spot compression views as well as additional views with possible ultrasound are recommended. This exam was interpreted at Station ID: [id number]. NOTE: For mammograms, a report in lay terms will be sent to the patient. Approximately 15% of breast malignancies will not be visualized mammographically. In the management of a palpable breast mass, a negative mammogram must not discourage biopsy of a clinically suspicious lesion. Electronically Signed By: Cole herrera/nae:05/07/2021 14:05:53 letter sent: Additional Imaging Needed ACR BI-RADS Category 0: Incomplete [id number]
== END ==
PROVIDERS: PCP Family Medicine; Referring Provider Family Medicine; Visit Provider Family Medicine
DX: Z12.31 Encounter for screening mammogram for malignant neoplasm of breast (principal)
CPT/HCPCS: 77063; 77067

== ENCOUNTER → 2021-05-29 08:58 | Outpatient (CLI) | payer MEDICARE, MEDICAID, SELFPAY ==
[2020-01-09 14:04] VITALS: BMI 39.4
--- NOTE | 2021-05-29 | DI.MG.S_ITS ---
UNILATERAL LEFT DIGITAL DIAGNOSTIC MAMMOGRAM 3D/2D WITH ADDITIONAL VIEWS: 05/29/2021 CLINICAL: Additional evaluation requested from prior study. Comparison is made to exams dated: 05/07/2021 mammogram, 05/04/2020 mammogram, 04/27/2019 mammogram, 08/20/2018 mammogram, and 01/21/2018 mammogram - [facility]. The tissue of left breast is heterogeneously dense. This may lower the sensitivity of mammography. There is an equal density focal asymmetry with an indistinct margin in the left breast at 4 o'clock middle depth. This is seen in additional views. No other significant masses or calcifications are seen in the breast. IMPRESSION: INCOMPLETE: NEEDS ADDITIONAL IMAGING EVALUATION The equal density focal asymmetry in the left breast is indeterminate. An ultrasound is recommended. This exam was interpreted at Station ID: [id number]. NOTE: For mammograms, a report in lay terms will be sent to the patient. Approximately 15% of breast malignancies will not be visualized mammographically. In the management of a palpable breast mass, a negative mammogram must not discourage biopsy of a clinically suspicious lesion. Electronically Signed By: Lamberto mills/nae:05/29/2021 10:31:58 ACR BI-RADS Category 0: Incomplete [id number]
--- NOTE | 2021-05-29 | DI.US.S_ITS ---
LIMITED ULTRASOUND OF LEFT BREAST: 05/29/2021 CLINICAL: Patient returns today to evaluate a focal asymmetry in the left breast. Comparison is made to exams dated: 05/29/2021 mammogram, 05/07/2021 mammogram, 05/04/2020 ultrasound, 05/04/2020 mammogram, 04/27/2019 mammogram, and 08/20/2018 mammogram - [facility]. Color flow ultrasound of the left breast 3-4 o'clock region was performed. Smith scale images of the real-time examination were reviewed. There is a 1 cm x 1 cm x 0.3 cm cluster of oval cysts with a septated internal wall in the left breast at 4 o'clock middle depth 9 cm from the nipple. This cluster of oval cysts is hypoechoic. This correlates with mammography findings. IMPRESSION: PROBABLY BENIGN The 1 cm x 1 cm x 0.3 cm cluster of oval cysts in the left breast is consistent with complicated cysts and is probably benign. A follow-up left mammogram and an ultrasound in 6 months is recommended to demonstrate stability. This exam was interpreted at Station ID: [id number]. Electronically Signed By: Lamberto mills/nae:05/29/2021 10:39:31 letter sent: Followup Recommended Ultrasound BI-RADS: 3 Probably benign
== END ==
PROVIDERS: PCP Family Medicine; Referring Provider Family Medicine; Visit Provider Family Medicine
DX: R92.8 Other abnormal and inconclusive findings on diagnostic imaging of breast (principal); N60.02 Solitary cyst of left breast
CPT/HCPCS: 76642; 77065; G0279

== ENCOUNTER → 2021-06-27 13:36 | Outpatient (CLI) | payer MEDICARE, MEDICAID, SELFPAY ==
[2020-01-09 14:04] VITALS: BMI 39.4
--- NOTE | 2021-06-27 | DI.MRI.S_ITS ---
PROCEDURE: MR LUMBAR SPINE WO CON INDICATIONS: Radiculopathy, lumbar region TECHNIQUE: Noncontrast sagittal T1 spin echo and T2 fast echo, sagittal STIR, axial T1 and T2 fast spin echo through the lumbar spine. In cases with scoliosis, additional coronal T2 fast spin echo may be performed. COMPARISON: [facility], MR, MR LUMBAR SPINE WO CON, 10/05/2017, 7:41. FINDINGS: Image quality: Excellent. Alignment and Curvature: There is normal bony alignment. Patient is status post posterior fusion and discectomy from L3-S1. Bone Marrow: Marrow is of normal overall signal. An intraosseous hemangioma is redemonstrated at L3. No acute vertebral body compression fractures. Spinal Cord: Conus medullaris terminates at the L1 level. Visualized cord demonstrates normal signal and size. Paraspinous Soft Tissues: No paravertebral masses. T12-L1: Mild disc desiccation. No canal stenosis. No neural foraminal narrowing. L1-L2: Mild disc desiccation and height loss. Broad-based disc bulge. Mild facet and ligamentum flavum hypertrophy. No canal stenosis. No neural foraminal stenosis. L2-L3: Mild disc desiccation and height loss. Broad-based disc bulge. No canal stenosis. Mild facet and ligamentum flavum hypertrophy. Mild neural foraminal stenosis. Findings are similar in extent to the prior study. L3-L4: Status post posterior fusion, left hemilaminectomy, and discectomy. No canal stenosis. No neural foraminal narrowing. L4-L5: Status post posterior fusion and discectomy. No canal stenosis. Mild left and moderate right neural foraminal stenosis. It is difficult to compare with the prior study given motion artifact on the previous scan. L5-S1: Status post fusion and discectomy. No canal stenosis. Mild bilateral foraminal stenosis. IMPRESSION: 1. Moderate right L4 neural foraminal stenosis at L4-5. It is unclear whether this is more severe than on the prior study from 2018. No other significant foraminal stenosis of the lumbar spine. No canal stenosis of the lumbar spine. Dictated by: Isha Kramer M.D. on 06/27/2021 at 16:36 Approved by: Isha Kramer M.D. on 06/27/2021 at 16:43
== END ==
PROVIDERS: PCP Family Medicine; Referring Provider Acupuncturist; Visit Provider Acupuncturist
DX: M54.16 Radiculopathy, lumbar region (principal); M48.061 Spinal stenosis, lumbar region without neurogenic claudication; Z98.1 Arthrodesis status
CPT/HCPCS: 72148

== ENCOUNTER → 2021-12-17 08:26 | Outpatient (CLI) | payer MEDICARE, MEDICAID, SELFPAY ==
[2020-01-09 14:04] VITALS: BMI 39.4
--- NOTE | 2021-12-17 | DI.US.S_ITS ---
LIMITED ULTRASOUND OF LEFT BREAST: 12/17/2021 CLINICAL: 6 month follow-up of cysts. Comparison is made to exams dated: 12/17/2021 mammogram, 05/29/2021 ultrasound, 05/29/2021 mammogram, 05/07/2021 mammogram, 05/04/2020 ultrasound, and 05/04/2020 mammogram - [facility]. Color flow ultrasound of the left breast 4 o'clock region was performed. Smith scale images of the real-time examination were reviewed. There is a relatively stable to less prominent 1.4 cm x 0.2 cm x 0.2 cm irregular area of fibrocystic tissue in the left breast at 4 o'clock middle depth 9 cm from the nipple with the long axis parallel to the skin. This correlates larger than estimated on mammography and has become less prominent in the anti-radial direction. Color flow imaging demonstrates that there is no vascularity present. IMPRESSION: PROBABLY BENIGN The 1.4 cm irregular area of fibrocystic tissue in the left breast is less prominent, has a differential diagnosis of ductal ectasia, clustered cysts or fibrocystic change and is probably benign. A follow-up left ultrasound in 6 months is recommended to demonstrate stability. The patient will be due for bilateral mammograms at that same visit. Findings and recommendations were conveyed to the patient at time of exam. This exam was interpreted at Station ID: [id number]. Electronically Signed By: Allie villalta/:12/17/2021 09:46:27 letter sent: Followup Recommended Ultrasound BI-RADS: 3 Probably benign
--- NOTE | 2021-12-17 | DI.MG.S_ITS ---
UNILATERAL LEFT DIGITAL DIAGNOSTIC MAMMOGRAM 3D/2D: 12/17/2021 CLINICAL: Short term follow up. Comparison is made to exams dated: 05/29/2021 mammogram, 05/07/2021 mammogram, 05/04/2020 mammogram, and 04/27/2019 mammogram - [facility]. There are scattered areas of fibroglandular density in the left breast (category b / 25%-50% glandular tissue). There is an equal density focal asymmetry with an indistinct margin in the left breast at 5 o'clock middle depth. This is not seen in additional views. This is less prominent. No other significant masses or calcifications are seen in the breast. IMPRESSION: INCOMPLETE: NEEDS ADDITIONAL IMAGING EVALUATION The equal density focal asymmetry in the left breast is less prominent. An ultrasound is recommended to ensure decreasing prominence. This was performed immediately following this exam. Based on the Tyrer Cuzick model (a risk assessment model) the patient's lifetime risk is 6.0% and her 10 year risk is 1.3%. According to the ACR, ACS, and NCCN guidelines, an annual breast MRI exam along with mammogram is recommended if the patient's lifetime risk is 20% or greater. This exam was interpreted at Station ID: [id number]. NOTE: For mammograms, a report in lay terms will be sent to the patient. Approximately 15% of breast malignancies will not be visualized mammographically. In the management of a palpable breast mass, a negative mammogram must not discourage biopsy of a clinically suspicious lesion. Electronically Signed By: Allie villalta/:12/17/2021 09:16:22 ACR BI-RADS Category 0: Incomplete 3340F
== END ==
PROVIDERS: PCP Physician Assistant; Referring Provider Physician Assistant; Visit Provider Physician Assistant
DX: R92.8 Other abnormal and inconclusive findings on diagnostic imaging of breast (principal); N64.89 Other specified disorders of breast
CPT/HCPCS: 76642; 77065; G0279

== ENCOUNTER → 2022-01-01 08:26 | Outpatient (CLI) | payer MEDICARE, MEDICAID, SELFPAY ==
[2020-01-09 14:04] VITALS: BMI 39.4
--- NOTE | 2022-01-01 08:28 | DI.NM.S_ITS ---
PROCEDURE: NM GLORIA PERF SPECT R&S PHARM Rest and pharmacological stress myocardial perfusion SPECT with gated imaging and ejection fraction RADIOPHARMACEUTICAL: 25.1 mCi Tc-99m tetrafosmin IV at rest and 25.5 mCi Tc-99m tetrafosmin IV at peak effect of pharmacological stress. Egd-unn-snaiearz was performed. INDICATIONS: Chest pain, unspecified TECHNIQUE: Radiopharmaceutical was injected at peak stress test, and also at rest. SPECT images were obtained. SPECT myocardial perfusion images were displayed in short axis, horizontal long axis, and vertical long axis views. Gated images were reviewed using TriplePulse software. COMPARISON: None. CARDIAC STRESS: A pharmacologic stress test was performed under the supervision of an attending staff, using an infusion of regadenoson. Hemodynamic data: There is normal blood pressure and heart rate response to pharmacologic stress. Symptoms: The patient denied anginal chest pain. EKG: No diagnostic changes of ischemia; no ectopy. FINDINGS: Raw data: There is good myocardial uptake of radiotracer. No significant motion artifacts. Inpf-rv-tnnfh ratio is 0.35 (normal is less than 0.38 for tetrafosmin tracer). There is evidence of shifting breast attenuation. Left ventricle function: Gated images demonstrate normal left ventricular wall thickening. No segmental wall motion abnormalities. No transient ischemic dilation; TID is 1.12 (normal less than 1.3). Left ventricle resting end diastolic volume is 107 mL. Left ventricle stress ejection fraction is >75%; normal range is above 45%. Myocardial perfusion: There is a small size, very mild intensity basal to mid anterior wall reversible perfusion defect. IMPRESSION: Probably low risk test. There is a small size, mild intensity basal to mid reversible anterior wall defect. The raw images do show evidence of shifting breast attenuation which is the suspected etiology however ischemia cannot be ruled out since no prone images were obtained. Normal wall motion with hyperdynamic left ventricular function. Dictated by: Karolina Enriquez D.O. on 01/02/2022 at 16:06 Approved by: Karolina Enriquez D.O. on 01/02/2022 at 16:11
[2022-01-01 10:40] LABS: COVID19 -Nasal RAPID Negative (Negative)
== END ==
PROVIDERS: PCP Physician Assistant; Referring Provider Family Medicine; Visit Provider Family Medicine
DX: R07.9 Chest pain, unspecified (principal)
CPT/HCPCS: 78452; 87635; 93017; A9502; J2785

== ENCOUNTER → 2022-07-03 10:03 | Outpatient (CLI) | payer MEDICARE, MEDICAID, SELFPAY ==
[2020-01-09 14:04] VITALS: BMI 39.4
--- NOTE | 2022-07-03 | DI.US.S_ITS ---
LIMITED ULTRASOUND OF LEFT BREAST: 07/03/2022 CLINICAL: Patient returns today to evaluate a focal asymmetry in the left breast. Comparison is made to exams dated: 07/03/2022 mammogram, 12/17/2021 ultrasound, 12/17/2021 mammogram, 05/29/2021 ultrasound, 05/29/2021 mammogram, and 05/07/2021 mammogram - [facility]. Color flow and real-time ultrasound of the left breast 3-4 o'clock region were performed. Smith scale images of the real-time examination were reviewed. There is a stable benign 2.4 cm x 0.2 cm x 0.2 cm irregular area of fibrocystic tissue in the left breast at 4 o'clock middle depth 9 cm from the nipple with the long axis parallel to the skin. Color flow imaging demonstrates that there is no vascularity present. This area is unchanged compared to prior ultrasound and is stable for one year. IMPRESSION: BENIGN There is no sonographic evidence of malignancy. The stable 2.4 cm x 0.2 cm x 0.2 cm irregular area of fibrocystic tissue in the left breast has a differential diagnosis of clustered cysts or fibrocystic change and is benign. A 1 year screening mammogram is recommended. This exam was interpreted at Station ID: [id number]. Electronically Signed By: Alexandru Wilson M.D. acr/:07/03/2022 11:02:05 letter sent: Normal Exam Ultrasound BI-RADS: 2 Benign
--- NOTE | 2022-07-03 | DI.MG.S_ITS ---
BILATERAL DIGITAL DIAGNOSTIC MAMMOGRAM 3D/2D SHORT-TERM FOLLOW-UP: 07/03/2022 CLINICAL: Short term follow up of the left breast, due for bilateral imaging. Comparison is made to exams dated: 12/17/2021 ultrasound, 12/17/2021 mammogram, 05/29/2021 ultrasound, 05/29/2021 mammogram, and 05/07/2021 mammogram - [facility]. There are scattered areas of fibroglandular density in both breasts (category b / 25%-50% glandular tissue). There is a stable equal density focal asymmetry with an indistinct margin in the left breast at 5 o'clock middle depth. No other significant masses, calcifications, or other findings are seen in either breast. IMPRESSION: INCOMPLETE: NEEDS ADDITIONAL IMAGING EVALUATION The stable equal density focal asymmetry in the left breast is indeterminate. An ultrasound is recommended. US will be performed and dictated separately. Based on the Tyrer Cuzick model (a risk assessment model) the patient's lifetime risk is 6.0% and her 10 year risk is 1.3%. According to the ACR, ACS, and NCCN guidelines, an annual breast MRI exam along with mammogram is recommended if the patient's lifetime risk is 20% or greater. This exam was interpreted at Station ID: [id number]. NOTE: For mammograms, a report in lay terms will be sent to the patient. Approximately 15% of breast malignancies will not be visualized mammographically. In the management of a palpable breast mass, a negative mammogram must not discourage biopsy of a clinically suspicious lesion. Electronically Signed By: Alexandru Wilson M.D. acr/:07/03/2022 10:38:42 ACR BI-RADS Category 0: Incomplete 3340F
== END ==
PROVIDERS: PCP Physician Assistant; Referring Provider Physician Assistant; Visit Provider Physician Assistant
DX: R92.8 Other abnormal and inconclusive findings on diagnostic imaging of breast (principal); N64.89 Other specified disorders of breast
CPT/HCPCS: 76642; 77066; G0279

== ENCOUNTER → 2022-11-06 08:27 | Outpatient (CLI) | payer MEDICARE, MEDICAID, SELFPAY ==
[2020-01-09 14:04] VITALS: BMI 39.4
--- NOTE | 2022-11-06 08:31 | DI.NM.S_ITS ---
PROCEDURE: ME BONE SCAN WHOLE BODY RADIOPHARMACEUTICAL: 19.8 mCi Tc-99m MDP IV. INDICATIONS: CARCINOMA,LUNG SMALL CELL TECHNIQUE: Delayed whole-body scintigrams were obtained approximately 3-4 hours after intravenous injection of radiotracer. Anterior and posterior views were acquired from vertex to feet. Additional left and right oblique views of the thoracic cage were obtained. COMPARISON: [facility], CR, XR FOOT LT MIN 3V, 03/31/2021, 13:25. MR, MR FOOT LT WO CON, 03/31/2021, 15:50. [facility] [place], CR, XR LUMBAR SPINE 2 OR 3 VIEWS, 05/29/2022, 8:56. [facility], ME, PET NECK TO MID THIGH, 07/17/2022, 10:08. FINDINGS: There is increased activity in vertex. There are foci of mildly increased activity in T8, T11 and T12. There are foci of subtle increased uptake in the inferior aspect of the sternum and left sacral ala, there is symmetrically increased activity in humeral heads bilaterally. Increased uptake in the left maxilla is noted, most commonly associated with dental disease. There is increased activity in the posterior aspect of the left 5th and 6th ribs, most likely related to remote rib fractures. There are foci of increased uptake in the lumbar spine correlating with degenerative and postsurgical changes seen on radiographs; early metastasis to spine could be obscured by degenerative changes. There are foci of increased periarticular activity, most pronounced in knees, ankles and feet, compatible with degenerative/arthritic changes. IMPRESSION: 1. There are multiple foci of mildly increased activity involving the calvarium, thoracic spine, sternum, left sacral ala and humeral heads bilaterally, which could represent early metastatic disease. Recommend clinical and radiographic correlation. 2. Increased activity in the left maxilla may be related to dental disease. Recommend clinical correlation. 3. Degenerative arthritic changes in multiple peripheral joints. Recommend radiographic correlation as clinically indicated. Dictated by: Darya Lewis M.D. on 11/06/2022 at 15:56 Approved by: Darya Lewis M.D. on 11/07/2022 at 10:19
== END ==
PROVIDERS: PCP Physician Assistant; Referring Provider Internal Medicine Hematology & Oncology; Visit Provider Internal Medicine Hematology & Oncology
DX: C34.11 Malignant neoplasm of upper lobe, right bronchus or lung (principal); C79.51 Secondary malignant neoplasm of bone
CPT/HCPCS: 78306; A9503

== ENCOUNTER 2023-01-21 11:29 | Inpatient (IN) | payer MEDICARE, MEDICAID, SELFPAY ==
[2020-01-09 14:04] VITALS: BMI 39.4
[2023-01-20 08:16] VITALS: BMI 38.2
[2023-01-21] VITALS (11 sets, daily range): BP systolic 121–174; BP diastolic 78–100; PULSE 82–95; RESP 11–20; TEMP 35.9–36.7; O2SAT 93–97; BMI 38.2
[2023-01-21] MEDS: LACTATED RINGERS 1,000 ML 42 ML IV ×2 (12:31→16:10)
--- NOTE | 2023-01-21 13:07 | PM.PREOP ---
Pre-operative Note Interval Note History & Physical reviewed/Exam performed by Physician: Yes Changes to H&P: No
[2023-01-21] MEDS: CEFAZOLIN 2 GM/100 ML PREMIX 100 ML IV (14:02)
--- NOTE | 2023-01-21 14:07 | P.OP_ITS ---
Operative Date/Time/Diagnoses Date of procedure: 01/21/23 Time of procedure: 14:00 Pre-op diagnosis: 1. L3-4, L4-5, L5-S1 history of fusion with hardware breakage/loosening 2. L4-5 pseudoarthrosis Post-op diagnosis: same Procedure & Clinicians Procedure: 1. L3-4, L4-5, L5-S1 posterior instrumentation re-insertion with replacement of broken hardware 2. Exploration of fusion L4-5 with revision laminectomy 3. L4-5 posterolateral fusion Same procedure as scheduled: Yes Indications: Ms. Gonsalez is here for scheduled hardware revision due to bilateral fusion valencia breakage. She had previous L3-S1 fusion and developed worsening back pain recently. Imaging shows new valencia breakage at the L4-5 level bilaterally indicating possible pseudoarthrosis. Surgeon: Karyna Beth Barrel Rifler Broach: Karime Miller Click Yes if Unassisted: No Anesthesia Type: General Operative Notes Closure Type: primary Specimen(s): none sent Prosthetic devices, grafts, tissues, transplants, or devices: Globus revolve screws and rods Applied: catheter Estimated Blood Loss (mL): 50 Blood products transfused: none Procedure in detail: Patient was seen in the preoperative area. Risks and benefits of the surgery was discussed with the patient. Informed consent was obtained from the patient and placed in the chart. Surgical site was marked. Patient was taken to the operative room. General anesthesia was administered. Prophylactic antibiotic was given to the patient less than 30 min before the incision was made. Patient was placed into a prone position on the Dominic table. Patient's back was then prepped and draped in the sterile fashion. Time-out was performed at this time. Using patient's previous scar incision was made over the L3-4 L4-5 L5-S1 interval on the left side. Fascia was incised in line with skin incision. Patient's previously placed hardware over the L3-4, L4-5 L5-S1 level was identified by dissecting down to the level the hardware using a Bovie and a Dumont. The locking caps which was removed using globus screwdriver. The locking valencia was then removed from the tulips of the pedicle screws using a Chet. The pedicle screws were then removed using the screwdriver. The screws were found to have good purchase except the L3 screw. The valencia was found to be broken at the L4-5 fusion interval. At this time a mirror image incision was made on the right side. The fascia was incised in line with the skin incision. Patient's previously placed hardware on the left side was then removed in the same fashion as it was on the right side. The hardware was also found to have good purchase except the L3 pedicle screw, which was loose. The fusion mass on the left side was exposed by performing a right-sided hemilaminectomy at L4-5 level. The hemilaminectomy was performed using the Kerrison rongeur to undercut the lamina at L4-5 as well removing additional epidural scar tissue for purpose of decompressing the epidural space. The fusion mass was explored and was found have visible motion indicating pseudoarthrosis at L4-5 level. Globus MARS retractor was inserted and docked onto the L4-5 posterolateral gutter. Using the power drill, posterior-lateral decortication was performed at L4-5 level until bleeding cortical bone was identified. The remaining bone grafting material was placed into the L4-5 posterior lateral gutter he order to accomplish posterolateral fusion at the L4- 5 level. Using the double C-arm technique, pedicle screws were placed into the L3, L4-L5 and S1 pedicles bilaterally. This was done by placing the Jamshidi needle into the pedicles, then placing the guidewires over the Jamshidi needle, and finally placing the cannulated screws over the guidewires bilaterally. After the pedicle screws were placed, 2 titanium rods was locked into the heads of the pedicle screws using locking caps and torque limiting screwdriver. After all the hardware was placed, and confirmed with AP and lateral C-arm imaging, the wound was then irrigated with sterile normal saline and packed with Ray-Louis gauze for 3 min to accomplish hemostasis. After the gauze was removed the deep fascia was closed with #1 Vicryl suture. The subcutaneous layer was closed with 2-0 Vicryl. The skin was closed with skin annelise. Patient tolerated the procedure well. There were no complications. Complications: none Post-operative Condition: stable Disposition: PACU Plan for aftercare: Admit to inpatient hospital
[2023-01-21] MEDS: BUPIVACAINE LIPOSOME 266 MG/20 ML VIAL INJ (14:39)
[2023-01-21] MEDS: BUPIVACAINE 0.25% (PF) 60 ML, EPINEPHrine 0.15 MG INJ (14:40)
--- NOTE | 2023-01-21 16:00 | DI.RAD.S_ITS ---
PROCEDURE: XR LUMBAR SPINE 2-3V INDICATIONS: HARDWARE EXPLORATION AND REINSERTION OF NEW HARDWARE TECHNIQUE: 2 fluoroscopic views of the lumbar spine were acquired. COMPARISON: [facility], CR, XR LUMBAR SPINE 2-3V, 01/09/2020, 9:51. [facility], CR, XR LUMBAR SPINE 2-3V, 09/09/2017, 8:48. [facility] [place], CR, XR LUMBAR SPINE 2 OR 3 VIEWS, 01/08/2023, 9:16. FINDINGS: Two intraoperative fluoroscopic views of the lumbar spine demonstrate L3 through S1 posterior spinal fixation and discectomy hardware. The hardware appears intact.. IMPRESSION: Intraoperative fluoroscopic views of the lumbar spine during hardware expiration and reinsertion. The hardware appears intact. Dictated by: Blu Akers M.D. on 01/21/2023 at 16:23 Approved by: Blu Akers M.D. on 01/21/2023 at 16:24
[2023-01-21] MEDS: HYDROMORPHONE 2 MG TABLET PO (16:46)
[2023-01-21] MEDS: ONDANSETRON 4 MG/2 ML INJ IV (16:46)
[2023-01-21] MEDS: LORazepam 2 MG/ML INJ 0.25 MG IV (16:47)
[2023-01-21] MEDS: HYDROMORPHONE 0.5 MG INJ IV ×3 (17:31→22:59)
[2023-01-21] MEDS: MORPHINE ER 15 MG TABLET 30 MG PO (18:39)
[2023-01-21] MEDS: HYDROCODONE/ACET 10/325 TABLET 1 TAB PO (19:59)
[2023-01-21] MEDS: LACTATED RINGERS 1,000 ML 125 ML IV (21:14)
[2023-01-21] MEDS: PREGABALIN 75 MG CAPSULE 150 MG PO (21:28)
[2023-01-21] MEDS: ATORVASTATIN 20 MG TABLET PO (21:28)
[2023-01-21] MEDS: PANTOPRAZOLE DR 40 MG TABLET PO (21:29)
[2023-01-21] MEDS: ARIPiprazole 10 MG TABLET 15 MG PO (21:29)
[2023-01-21] MEDS: cloNIDine 0.1 MG TABLET PO (21:29)
[2023-01-21] MEDS: METFORMIN HCL 500 MG TABLET 1000 MG PO (21:29)
[2023-01-21] MEDS: ONDANSETRON 4 MG ODT SL (21:36)
[2023-01-21] MEDS: CEFAZOLIN VIAL 3 GM in SODIUM CHLORIDE 0.9% 100 ML IV (22:03)
[2023-01-21] MEDS: hydrOXYzine pamoate 25 MG CAPSULE PO (22:59)
--- NOTE | 2023-01-21 23:16 | PC.NURSE ---
Addendum entered by Daya Britton R.N. 01/22/23 01:27: Patient still having pain control issues stating pain never gets better than 6/10. Dr. Sung informed and order received for larger dose of IV dilaudid. Dilaudid administered and ice pack reapplied. Original Note: Patient is alert and oriented. Breath sounds CTA with RA sat of 96%. HRR w/BP of 149/89. Initially denied nausea but at 2130 was complaining of feeling nauseous so medicated with ODT Zofran and nausea resolved. BT present but has not yet passed flatus. Indwelling catheter is patent and urine is clear, yellow. Assisted to reposition q2h upon request but is also able to assist in bed mobility. Thought she needed to have BM so was gotten up to [facility] with walker and 2 assists and then requested to sit in recliner stating she usually sleeps in recliner at her own home. Dressing to back is CDI. CMS is intact although has chronic numbness in left foot and weakness in bilateral LE as well as hands. Is wearing bilateral calf SCD's. Was complaining of have hot flashes earlier and was diaphoretic and nauseated without emesis. Removed SCD's per her request and now since she is up in recliner states she is feeling much better; requested SCD's remain off. Has been having some pain control issues requiring vicodin, IV dilaudid and vistaril; has also been agreeable to ice packs. States pain remaining constant at 7/10 but better and states pain is less intense with use of medications. Fall risk assessment is moderate but calls appropriately for assistance and spouse is rooming in.
[2023-01-22] MEDS: HYDROCODONE/ACET 10/325 TABLET 1 TAB PO ×3 (00:09→11:53)
[2023-01-22 01:17] VITALS: BP 154/100; PULSE 98; RESP 18; TEMP 36.4; O2SAT 92
[2023-01-22] MEDS: HYDROMORPHONE 1 MG INJ IV ×3 (01:23→05:09)
[2023-01-22] MEDS: hydrOXYzine pamoate 25 MG CAPSULE PO ×2 (03:03→08:06)
[2023-01-22 03:37] VITALS: BP 123/66; PULSE 93; RESP 20; TEMP 35.7; O2SAT 93
[2023-01-22 04:00] LABS: Hematocrit 34.7 % (36-46); Hemoglobin 11.3 g/dL (12.0-16.0)
[2023-01-22] MEDS: CEFAZOLIN VIAL 3 GM in SODIUM CHLORIDE 0.9% 100 ML IV (06:11)
[2023-01-22] MEDS: MORPHINE ER 15 MG TABLET 30 MG PO (06:22)
[2023-01-22] MEDS: SODIUM CHLORIDE 0.9% FLUSH 10 ML IV ×2 (06:54→08:07)
--- NOTE | 2023-01-22 07:18 | P.DS_ITS ---
History of Present Illness History of Present Illness Date Patient Seen: 01/22/23 Time Patient Seen: 07:18 Chief complaint: Laminectomy Narrative: Operative Date/Time/Diagnoses Date of procedure: 01/21/23 Time of procedure: 14:00 Pre-op diagnosis: 1. L3-4, L4-5, L5-S1 history of fusion with hardware breakage/loosening 2. L4-5 pseudoarthrosis Post-op diagnosis: same Procedure & Clinicians Procedure: 1. L3-4, L4-5, L5-S1 posterior instrumentation re-insertion with replacement of broken hardware 2. Exploration of fusion L4-5 with revision laminectomy 3. L4-5 posterolateral fusion Same procedure as scheduled: Yes Indications: Ms. Gonsalez is here for scheduled hardware revision due to bilateral fusion valencia breakage. She had previous L3-S1 fusion and developed worsening back pain recently. Imaging shows new valencia breakage at the L4-5 level bilaterally indicating possible pseudoarthrosis. Surgeon: Karyna Beth Signal Tower Director: Karime Miller Click Yes if Unassisted: No Anesthesia Type: General Operative Notes Closure Type: primary Specimen(s): none sent Prosthetic devices, grafts, tissues, transplants, or devices: Globus revolve screws and rods Applied: catheter Estimated Blood Loss (mL): 50 Blood products transfused: none Discharge Providers Provider Date of admission: 01/21/23 11:29 Discharge Date: 01/22/23 Primary care physician: Donita Michaels PA-C Consults: 01/21/23 17:24 Consult to Occupational Therapy Evaluate & Treat Comment: Physician Instructions: Evaluate and treat Consult to Physical Therapy Evaluate & Treat Comment: Physician Instructions: Evaluate and Treat Discharge provider: Karime Miller PA-C Summary Hospital Course Discharge Diagnosis: L3-4, L4-5, L5-S1 history of fusion with hardware breakage/loosening, L4-5 pseudoarthrosis; s/p hardware revision Hospital Course: Ms Gonsalez's hospital course was remarkable for poor pain control following surgery. She c/o back pain, denied leg pain. Despite this, on the morning of POD# 1, she wanted to go home as she felt she would be more comfortable there. She is on palliative care and her pain is managed by JOHNATHAN Nguyen. She currently takes MSContin 30mg BID w/ hydrocodone/APAP PRN. She said Ms Franklin's plan is to also give her IR morphine following surgery. Exam Vital Signs (past 8 hours): - 01/22/23 01:17 01/22/23 03:37 Temperature 97.5 F L 96.3 F L Pulse Rate 98 H 93 H Respiratory Rate 18 20 Blood Pressure 154/100 H 123/66 Pulse Oximetry 92 93 Oxygen Flow Rate 0 0 Oxygen Delivery Method Room Air Oxygen Flow Rate 0 Narrative Exam Narrative: 5/5 strength in hip flexors, quadriceps, hamstings, DF, PF, EHL bilaterally. Sensation to light touch intact throughout BLE. Calves soft, compressible, nontender and without palpable cords or masses. Dressing placed intraoperatively is CDI. Catheter draining adequate amounts of clear, yellow urine. Objective Labs 01/22/23 03:40 Labs: Laboratory Results - last 24 hr 01/22/23 03:40 Hgb 11.3 L Hct 34.7 L PFSH Medical History (Updated 01/20/23 @ 09:12 by Liset Smart RN) Ulcerative colitis Diabetes (2022) Lung cancer (07/16/22) PTSD (post-traumatic stress disorder) (~2018) Smoker Bipolar 1 disorder, depressed, mild Charcot Belkis Tooth muscular atrophy Surgical History (Updated 01/20/23 @ 08:17 by Liset Smart RN) History of lumbar fusion (01/09/20) History of lumbar fusion (08/30/17) History of bladder surgery S/P foot surgery, right S/P foot surgery, left History of hysterectomy History of laminectomy Social History household members: spouse Smoking Status: Former smoker alcohol intake: current Discharge Assessment & Plan Assessment and Plan Assessment: L3-4, L4-5, L5-S1 history of fusion with hardware breakage/loosening, L4-5 pseudoarthrosis; s/p hardware revision Plan of Treatment: Discharge home after PT if PT agrees and pt able to void without moctezuma catheter. Will leave pain management in the hands of Ms Franklin, unless we hear differently from her office. Discharge Plan Discharge Plan Patient Disposition: Home Discharge orders & Medications Prescriptions: Continued metformin 500 mg tablet 1,000 mg PO BID pregabalin 150 mg capsule 150 mg PO BID atorvastatin 20 mg Tablet 20 mg PO BEDTIME morphine 30 mg Tablet Extended Release 30 mg PO Q12H hydrocodone-acetaminophen 10-325 mg Tablet 1 tab PO Q4-6H PRN (Reason: Pain) propranolol 10 mg Tablet 10 mg PO DAILY pantoprazole 40 mg Tablet,Delayed Release (Dr/Ec) 40 mg PO TID furosemide 20 mg Tablet 20 mg PO DAILY PRN (Reason: Lower edema swelling) acetaminophen 325 mg tablet 650 mg PO Q6HR PRN (Reason: Pain, Mild) fluoxetine [Prozac] 40 mg Capsule 80 mg PO QAM clonidine HCl 0.1 mg Tablet 0.1 mg PO BEDTIME aripiprazole [Abilify] 10 mg Tablet 15 mg PO BEDTIME Pharmacist Comment: Will discuss pain management w/ Suzy. Follow up/Referrals: Donita Michaels PA-C [Primary Care Provider] - Karyna Beth MD [Physician] - As previously scheduled (Follow up with Karime Miller PA-C, on 02/05/2023 @ 1:30 pm at [facility] office in [place].) Diet/Activity/Treatments Diet: Diet as Tolerated Activity: No deep bending or twisting at the waist. No lifting more than 10 pounds. Cold/Heat Therapy: Heating pad to low back as needed for pain. Skin/Wound/Dressing Care Report to your healthcare provider any signs of infection, such as:: chills, fever, night sweats, unusual drainage and unusual redness Dressing: May shower. Keep dressing as dry as possible. If dressing becomes wet or dirty, may remove and replace with clean, dry gauze. No bathing or otherwise soaking incisions. Do not place any creams, lotions, or ointments on incisions. Visit Report/Discharge Packet Instructions: DI for Transforaminal Lumbar Interbody Fusion Stand Alone Forms: Patient Portal/API, Stroke Signs & Symptoms, Surgery Discharge Discharge Data Primary Care Provider: Donita Michaels
[2023-01-22 07:27] VITALS: BP 119/72; PULSE 90; RESP 18; TEMP 36.2; O2SAT 94
[2023-01-22] MEDS: FLUoxetine 20 MG CAPSULE 80 MG PO (08:05)
[2023-01-22] MEDS: METFORMIN HCL 500 MG TABLET 1000 MG PO (08:05)
[2023-01-22] MEDS: PANTOPRAZOLE DR 40 MG TABLET PO (08:06)
[2023-01-22] MEDS: DOCUSATE 100 MG CAPSULE PO (08:06)
[2023-01-22] MEDS: PREGABALIN 75 MG CAPSULE 150 MG PO (08:06)
[2023-01-22] MEDS: PROPRANOLOL 10 MG TABLET PO (08:07)
--- NOTE | 2023-01-22 11:29 | OT.IP.EVAL ---
Current Diagnoses Other mechanical complication of other internal orthopedic devices, implants and grafts, initial encounter (01/21/23) Arthrodesis status (01/21/23) Surgery Performed Operation Date: 01/21/23 13:15 Actual Procedures p L3-S1 Lumbar HWR exploration of fusion, repeat Laminectomy reinsertion of hardware - Karyna Beth MD Past Medical History (Last Updated 01/20/23 @ 09:12 by Liset Smart, RN) Bipolar 1 disorder, depressed, mild Charcot Belkis Tooth muscular atrophy Diabetes (2022) Lung cancer (07/16/22) PTSD (post-traumatic stress disorder) (~2018) Smoker Ulcerative colitis Surgical History (Last Updated 01/20/23 @ 08:17 by Liset Smart RN) History of bladder surgery History of hysterectomy History of laminectomy History of lumbar fusion (08/30/17) History of lumbar fusion (01/09/20) S/P foot surgery, left S/P foot surgery, right Occupational Therapy Inpatient Evaluation/Re-Eval M1 PT/OT-IP Prior Functional Status Start: 01/22/23 11:57 Freq: NEEDED Status: Active Protocol: Document 01/22/23 10:57 [facility] (Rec: 01/22/23 12:19 [facility] [id number]) Medical Review Prior Functional Status Medical History Reviewed Yes Diet/Fluid Consistency Regular Communication WNLs Mobility and Gait Furniture walking in the house , significant other nearby, use of rollator outside Activities of Daily Living and IADL's Assistance as needed from significant other, assist for all IADL needs. Social History Household Members spouse Living Arrangements Apartment/Condo Number of Floors (Floors) One Floor Home Environment Standard Height Toilet Home Equipment Four Wheel Walker,Straight Cane,Shower Seat without Backrest,Long Handled Shoe Horn,Contour Sander,Grab Bars Near Toilet,Grab Bars In Shower M2 OT-IP Current Condition Start: 01/22/23 11:57 Freq: Status: Active Protocol: Document 01/22/23 10:57 [facility] (Rec: 01/22/23 12:19 [facility] [id number]) Occupational Therapy Current Condition Current Condition Evaluation Date 01/22/23 Treatment Diagnosis S/P L3-S1 revision PSF with inst. & replacement of broken hardware Diagnosis Onset Date 01/21/23 Post Operative Precautions Lumbar Precautions Log Roll,No Twisting,Limit Bending,Lifting Restriction of 10 lbs,Gait Belt above Incisional Area M3 OT- IP Subjective and Pain Start: 01/22/23 11:57 Freq: Status: Active Protocol: Document 01/22/23 10:57 [facility] (Rec: 01/22/23 12:19 [facility] [id number]) OT- Subjective Occupational Therapy Visit Type Type Initial Evaluation Visit Start Time 10:57 Visit Stop Time 11:29 Total Visit Minutes 32 Occupational Therapy Visit Comments Patient Comments Pt in the bathroom when OT came in to work with the pt. Pt's significant other also present. Patient/Caregiver Goals To go home OT Pain Assessment Pain When Pain Assessed During Mobility Pain Present Pain Present Pain Reported Location Lower Back Intensity 6 M4 OT- IP ADL's Start: 01/22/23 11:57 Freq: Status: Active Protocol: Document 01/22/23 10:57 [facility] (Rec: 01/22/23 12:19 [facility] [id number]) OT [id number] Comments OT Self-Feeding Comments Not at meal time. OT ADL-Grooming Comments OT Grooming Comments Not performed OT ADL-Oral Care Comments Oral Care Comments Not performed. OT ADL-Dressing General Eval Upper Body Dressing Ability Independent Lower Body Dressing Ability Maximum Assistance Areas Needing Assistance Underpants/Brief,Pants/Shorts, Socks,Shoes,Orthosis/ Prosthesis Comments OT Dressing Comments Pt able to comfortably cross her LLE to do LB dressing and not with her RLE. Educated to pt best to use LB dressing equipment or have her significant other assist with her needs. OT ADL-Toileting General Evaluation Toileting Ability Moderate Assistance Areas Needing Assistance Manage Clothing,Perform Perineal Hygiene Comments OT Toileting Comments Pt will need assist with hygiene needs and assist to help pull up clothing over her hips. Suggested a bidet/ toilet paper aid can be helpful, use of wet ones, and brief. Suggested to get a BSC as pt get up often at night. OT ADL-Bathing Comments OT Bathing Comments Pt significant other to assist . M5 OT- IP IADL's Start: 01/22/23 11:57 Freq: Status: Active Protocol: Document 01/22/23 10:57 [facility] (Rec: 01/22/23 12:19 [facility] [id number]) OT-Instrumental Activities of Daily Living Deficits IADL Deficits Identified Deficits Home Safety Awareness Awareness of Need for Assistance at Home Good Awareness Ability to Problem Solve Emergency Able to Problem Solve Situations Medication Management Medication Management Caregiver Administers Money Management Money Management Caregiver Provides Assistance Meal Preparation Meal Preparation Caregiver Provides Assist Senior Occupational Therapist Senior Occupational Therapist Caregiver Provides Assist Driving Driving Caregiver Provides Assist M6 OT- IP Functional Cognition Start: 01/22/23 11:57 Freq: Status: Active Protocol: Document 01/22/23 10:57 [facility] (Rec: 01/22/23 12:19 [facility] [id number]) Cognitive Factors Limiting Selfcare Function Cognitive Ability Level of Alertness Alert Patient Orientation Name,Age,Birthday,Month,Date, Year,Day of Week,Place, Situation Attention Span Ability Capable of Focused Attention, Capable of Sustained Attention Ability to Follow Commands Able to Follow One Step Commands Memory Description Short Term Impaired Safety Awareness Underestimates Need for Assistance Cognitive Comments Cognitive Assessment Comments Pt needing education to be sure to ask for assistance and not overdo it especially for ADL needs. OT- Vision and Hearing OT- Hearing Assessment OT- Hearing Assessment WFL OT- Vision Assessment Visual Acuity Glasses All The Time,No Vision Aides At Hospital M7 OT- IP Mobility and Balance Start: 01/22/23 11:57 Freq: Status: Active Protocol: Document 01/22/23 10:57 [facility] (Rec: 01/22/23 12:19 [facility] [id number]) OT-Transfer Assessment Sit to and From Stand Sit to and from Stand Contact Guard Assistance Transfers Transfer Ability Standby Assistance Technique Transfer Destination Chair,Toilet Transfer Technique Stand Step Pivot Devices Transfer Assistive Devices Gait Belt,Front Wheeled Walker ,4 Wheeled Walker Comments Mobility Comments Pt able to use fww and 4ww with SBA to occasional CGA in the room and out in the hallway. OT- Balance Assessment Sitting Balance and Reactions Static Sitting Balance Ability Normal Dynamic Sitting Balance Ability Normal Standing Balance and Reactions Static Standing Balance Ability Good Dynamic Standing Balance Ability Good M8 OT- IP Objective Assessments Start: 01/22/23 11:57 Freq: Status: Active Protocol: Document 01/22/23 10:57 [facility] (Rec: 01/22/23 12:19 [facility] [id number]) OT Gross Range of Motion Upper Extremity Range of Motion Assessment Within Functional Limits M9 OT- IP Assessment and Plan Start: 01/22/23 11:57 Freq: Status: Active Protocol: Document 01/22/23 10:57 [facility] (Rec: 01/22/23 12:19 [facility] [id number]) OT Summary Assessment and Plan Potential Rehabilitation Potential Good Analytic Complexity at Evaluation Low Summary OT Impairments Pain,Balance,Functional Mobility,Dressing,Toileting, Bathing,Toilet Transfers, Shower Transfers Progress Towards Goals Progressing Toward Goals Assessment Summary Pt low complexity and main barriers are pain and will needing assist for ADL needs. Pt has a supportive significant other to assist with her needs at home. Pt to go home with assist when medically stable. Goals Grooming Goal Independent Dressing Goal Minimal Assistance Toileting Goal Minimal Assistance Bathing Goal Minimal Assistance Toilet Transfer Goal Independent Shower Transfer Goal Contact Guard Assistance Days to Meet Goals 5 Frequency of Treatment Frequency Of Treatment Once a Day Treatment Plan OT Treatment Plan ADL Training,Functional Mobility,Patient/Family Education,Discharge Planning Discharge Recommendations Home Equipment Needs [facility] Transportation Needs at Discharge Private Vehicle
--- NOTE | 2023-01-22 11:30 | CM.DANOTE ---
Initial DCP Assessment Visit Reviewed chart and team rounds for d/c plan and recommendations. Met with pt and spouse at bedside to introduce self and role. Pt found to be alert, shares that she is feeling good this morning, and is ready to d/c home. Payor: Medicare, Medicaid PCP: Donita Michaels Attending: Dr. Beth Pt admitted for a laminectomy procedure w/ Dr. Beth. Hx of prior lumbar fusions w/hardware. Dx stage IV lung cancer in June 2022, completed chemo and radiation, and now receives ongoing Palliative Care services through [facility]. She denies the need for any in-home services or supports, stating that her provides for her care needs. Pt presents as smiling and in the recliner, expresses no concerns or further needs at this time. Plan: D/C home today w/spouse providing transport. F/u OP w/Dr. Beth for further evaluation and recommendations. Discharge Planning/Care Management Advanced directive, confirm from FAMILY Start: 01/21/23 18:50 Freq: Q24H Status: Active Protocol: Document 01/21/23 18:50 LW (Rec: 01/21/23 18:51 LW [id number]) Advance Directive, confirm on record Time 18:51 Person contacted humberto Tubbs received No CM Discharge Assessment Start: 01/22/23 11:24 Freq: Status: Active Protocol: Document 01/22/23 11:24 DPL (Rec: 01/22/23 11:30 DPL [id number]) Discharge Planning Assessment Assigned Truck Hopper BRADEN Valdes Advance Directives? No Advance Directives on File No History Provided By Patient,Medical Record Has Patient been admitted in last 30 No days? Prior Living Arrangements Apartment/Condo Household Members spouse Type of transporation used prior to Relies on Others admit Independent with ADL's No: Requires assistance from spouse for cg and home ADL's. Is patient alert and oriented? Yes Needs Assistance With Toileting,Home Chores / Shopping Caregiver for Another No Comment OP Palliative Care w/[facility]. Comment U/K Comment Cont. Palliative Care w/Suzy Franklin at [facility]. Pt to f/u OP with Dr. Beth. No further needs identified at this time. Barriers to Discharge No Discharge Plan Home Transportation Arrangement Spouse can provide transport at d/c Referrals Initiated None needed Whiteboard Updated in Patient Room with Yes name and ext. # of Truck Hopper Review Status In Process Please Provide Date Initial DC 01/22/23 Assessment Was Performed Pre-Anesthesia Assessment Start: 01/20/23 08:16 Freq: Status: Complete Protocol: Document 01/20/23 08:16 [facility] (Rec: 01/20/23 09:22 [facility] [id number]) Pre-Anesthesia Assessment Patient Information Reviewed Via Phone Assessment Assessment Completed With Patient Diagnostic Results BMP/CMP,CBC Comment Outside labs scanned, pt states no EKG ordered Primary Care Provider Donita Michaels Comment PCP clearance scanned Medical Clearance Received Yes Seen Specialist in Last 12 Months Yes Specialist Seen Oncologist,Orthopedist,Other Comment Oncology clearance form scanned Primary Language Yakut Preferred Language Yakut Program Manager Required No Height 170.18 cm Weight 110.677 kg Body Mass Index (BMI) 38.2 Hearing Ability Normal Visual Impairment No Limitations Visual Assist None Dentition Type Teeth, Natural Present,Teeth, Missing Barriers to Learning Memory Other Aids No Hx Anesthesia Reactions No Hx Family Anesthesia Reaction No Hx Malignant Hyperthermia No Hx Blood Transfusions Yes: 2022 due to lung cancer Hx Blood Transfusion Reaction No Anesthesia Review Requested No Financial Reporting Consultant No alcohol intake current alcohol intake frequency holidays/special occasions only Smoking Status Former smoker Tobacco type cigarettes how long ago did patient quit smoking July 16 2022 Substance Use Type marijuana Comment Edibles only Pain Present Pain Reported Musculoskeletal Symptoms Abnormal Gait,Back Pain, Difficulty Walking,Joint Pain, Radiating Pain into Limb History of Falling (Recent or History of Yes ) Patient is completely paralyzed or No completely immobile Prosthesis or Orthotic Device Front Wheel Walker Mental Status Oriented to own ability Is patient on oxygen? No Does patient have KNOX/SOB Yes: Related to COPD/Emphysema , pt states controlled Hx Sleep Apnea No CPAP/BIPAP use not prescribed Currently Taking a Beta Prince Yes: Propranolol Can You Climb a Flight of Stairs Without No: Related to COPD/Emphysema, SOB pt states controlled Hx Chest Pain No Hx SOB Yes: Related to COPD/Emphysema , pt states controlled Hx Syncope or Dizziness No Anti-Coagulant Therapy No Has a Cloth Colors Examiner No Cardiac Testing No Hx Pacemaker/ICD No Pacemaker Rep Required? No Diet Type At Home Regular,Dysphagia Gastrointestinal Symptoms Constipation Bladder Pattern Incontinent Urinary Catheter Present No Hx Urinary Self Catheterization No Diabetes Yes Patient No Lactating No Hx Drug Resistant Organism No Presence of External or Internal Medical Yes: Lumbar hardware, screws/ Devices plates left foot Have you had any close contact with No someone diagnosed with COVID-19? Received a COVID vaccine? Yes Received all doses? No Marital Status Lives With spouse Current Living Arrangements Apartment/Condo Number of Floors (Floors) One Floor Support System Spouse Does the Patient Have Assistance After Yes Surgery Patient Discharge Plan Description Return Home Comment Pt advised 1-2 day length of stay per surgeon Feels Safe in Current Environment Yes Been Physically Hurt or Threatened By a No Person in Current Environment Do you have thoughts of harming yourself None or others? Are you currently considering suicide? No Do you have a plan to hurt yourself or No Plan others? Do You Have Any Spiritual Beliefs That No May Affect Your HC Choices? Do You Have Any Cultural Practices That No May Affect Your HC Choices? Comment [employer] Who Can We Speak to About Patient's Care Family, friends Identifying Code for Release of Patient Declines to issue Information Health Care Proxy/Next of Kin Humberto (spouse) Health Care Proxy Emergency Contact Name Humberto (spouse) Emergency Contact Advance Directives? No Advance Directives on File No Power of Siphon Operator No PAC Instructions Diabetes instructions,Durable medical equipment,Medications to take/avoid,No ETOH/ petroleum product on skin DOS, NPO,Sturdy shoes/comfortable clothes,Do not bring valuables and remove jewelry Comment Pt states not instructed on nose abx or surgical scrub by surgeon office
--- NOTE | 2023-01-22 11:56 | PT.IIE ---
Current Diagnoses Other mechanical complication of other internal orthopedic devices, implants and grafts, initial encounter (01/21/23) Arthrodesis status (01/21/23) Surgery Performed Operation Date: 01/21/23 13:15 Actual Procedures p L3-S1 Lumbar HWR exploration of fusion, repeat Laminectomy reinsertion of hardware - Karyna Beth MD Surgical History (Last Updated 01/20/23 @ 08:17 by Liset Smart, RN) History of bladder surgery History of hysterectomy History of laminectomy History of lumbar fusion (08/30/17) History of lumbar fusion (01/09/20) S/P foot surgery, left S/P foot surgery, right Medical History (Last Updated 01/20/23 @ 09:12 by Liset Smart, RN) Bipolar 1 disorder, depressed, mild Charcot Belkis Tooth muscular atrophy Diabetes (2022) Lung cancer (07/16/22) PTSD (post-traumatic stress disorder) (~2018) Smoker Ulcerative colitis Physical Therapy Inpatient Evaluation/Re-Eval M1 PT/OT-IP Prior Functional Status Start: 01/22/23 08:12 Freq: NEEDED Status: Active Protocol: Document 01/22/23 10:50 MB (Rec: 01/22/23 11:56 MB [id number]) Medical Review Prior Functional Status Medical History Reviewed Yes Diet/Fluid Consistency Regular Communication WNLs Mobility and Gait Furniture walking in the house , significant other nearby, use of rollator outside Activities of Daily Living and IADL's Assistance as needed from significant other Social History Household Members spouse Living Arrangements Apartment/Condo Number of Floors (Floors) One Floor Home Environment Standard Height Toilet Home Equipment Four Wheel Walker,Straight Cane,Shower Seat without Backrest,Long Handled Shoe Horn,Milieu Manager,Grab Bars Near Toilet,Grab Bars In Shower Employment Status Unemployed M2 PT-IP Current Condition Start: 01/22/23 08:12 Freq: NEEDED Status: Active Protocol: Document 01/22/23 10:50 MB (Rec: 01/22/23 11:56 MB [id number]) Physical Therapy Current Condition Current Condition Evaluation Date 01/22/23 Treatment Diagnosis PSIF revision L3-S1 Onset Date 01/21/23 M3 PT-IP Subjective Start: 01/22/23 08:12 Freq: NEEDED Status: Active Protocol: Document 01/22/23 10:50 MB (Rec: 01/22/23 11:56 MB [id number]) Subjective Physical Therapy Visit Type Type Initial Evaluation Visit Start Time 10:50 Visit Stop Time 11:20 Total Visit Minutes 30 Number of CONVENTION SERVICES DIRECTOR Visits 0 Physical Therapy Visit Comments Patient Comments I'm better today. Pt and significant other, Wilton, state that last night was rough post-op. Therapy Pain Assessment Pain When Pain Assessed At Rest Pain Present Pain Present Pain Reported Location Lower Back Intensity 6 Description Acute,With Movement Pain Behaviors Facial Grimacing,Guarding Pain Management Techniques Modification of Treatment,Re- positioning M4 PT-IP Mobility and Gait Start: 01/22/23 08:12 Freq: NEEDED Status: Active Protocol: Document 01/22/23 10:50 MB (Rec: 01/22/23 11:56 MB [id number]) PT-Transfer Assessment Sit to and From Stand Sit to and from Stand Contact Guard Assistance,1 Person Assistance,Use of Upper Extremities Equipment Transfer Assistive Device Gait Belt,Front Wheeled Walker Orthotic/Prosthetic Devices or Brace: Yes Transfers Transfer Destination Toilet Transfer Technique Gait Transfer Ability Level of Assist Standby Assistance,1 Person Assistance,Use of Upper Extremities Comments Mobility Comments Pt moves slowly d/t pain and she uses RW, chair arms and rails in BR for transfers. Pt transfers from chair to RW, RW to commode, commode back to RW and RW to chair. Pt declines bed mobility as she sleeps in a recliner at home and she has back pain on PT eval. Pt wears left ankle brace d/t Charcot Belkis Foot changes. Gait Assessment Gait Gait Assistance Required: Standby Assistance,1 Person Assist Distance (Feet) 100 Able to Maintain Weight Bearing Status Yes During Gait Assistive Devices Assistive Device Gait Belt,Front Wheeled Walker ,4 Wheeled Walker Orthotic/Prosthetic Devices or Brace: Yes Gait Deviations General Gait Pattern Antalgic,Decreased Stride Length,Decreased Feet Clearance,Flexed Trunk Factors Limiting Gait Function Factors Limiting Gait Function Decreased Sensation,Decreased Strength,Pain Comments Gait Comments Pt gait trains approximately 100' with RW and 100' with rollator. She wears left foot brace/AFO and she has decreased luna. Sit to stand from rollator pushed against the wall with cues. Stair Climbing Assessment Comments Stair Climbing Comments Pt states there are no steps that she has to mange at home. PT-Balance Assessment Sitting Balance and Reactions Static Sitting Balance Ability Good Dynamic Sitting Balance Ability Good Standing Balance and Reactions Static Standing Balance Ability Fair Dynamic Standing Balance Ability Fair Device Used RW, rollator M5 PT-IP Objective Assessments Start: 01/22/23 08:12 Freq: NEEDED Status: Active Protocol: Document 01/22/23 10:50 MB (Rec: 01/22/23 11:56 MB [id number]) Orientation Orientation/Cognition Level of Alertness Alert Orientation Name,Age,Birthday,Month,Date, Year,Day of Week,Place, Situation Language Function Ability No Deficits Noted Safety Awareness Understands Safety Issues Memory Description No Deficits Noted Gross Range of Motion Lower Extremity ROM Assessment Bilaterally Impaired Impairments Pt does not tolerate formal ROM or MMT d/t pain in LB with flexing right hip especially. Pt can lift left foot paritially with hands and cross left ankle over right knee but she cannot do so with the right hip. She has B CMF with changes in her foot anatomy B and requires AFO left foot. Strength Lower Extremity Strength Assessment Bilaterally Impaired Comments Strength Comments See ROM comments above. Sensation Assessment Comments Sensation Comments Sensory changes in feet from CMF. M6 PT-IP Treatment Start: 01/22/23 08:12 Freq: NEEDED Status: Active Protocol: Document 01/22/23 10:50 MB (Rec: 01/22/23 11:56 MB [id number]) Physical Therapy Treatment Education Education Provided Precautions Other Treatments Other Treatment Performed Pt verbalizes back precautions without cues from PT, has history of back surgery. M7 PT-IP Assessment and Plan Start: 01/22/23 08:12 Freq: NEEDED Status: Active Protocol: Document 01/22/23 10:50 MB (Rec: 01/22/23 11:56 MB [id number]) PT Summary Assessment and Plan Potential Rehabilitation Potential Fair Status of Condition at Evaluation Evolving Summary Impairments Pain,ROM,Strength,Balance, Sensation,Transfers,Gait, Activity Tolerance Progress Towards Goals Slow Progress due to Pain Assessment Summary Pt is a 47 y/o female presenting with back pain, functional weakness, decreased gait POD1 L3-S1 spinal fusion revision. She has a supportive significant other who can assist her as needed at d/c with ADLs and mobility. Pt states they recently moved out a lot of furniture and so encouraged her to use AD in the home as well rather than furniture walking to help decrease fall risk and risk of twisting her back. Pt up in chair upon arrival and declines bed mobility d/t sleeping in the recliner at home. She will benefit from acute and post-acute PT to maximize I, gait, and balance and to decrease fall risk. Goals Transfer Goal Independent,Four Wheeled Walker Gait Goal Independent,Four Wheel Walker Gait Distance 150 Days to Meet Goals 0 Frequency of Treatment Frequency Of Treatment Once a Day Treatment Plan Physical Therapy Treatment Plan Bed Mobility Training,Transfer Training,Gait Training, Therapeutic Exercise,Balance Retraining,Discharge Planning, Hot or Cold Pack Other Recommendations and Next Treatment PT puts bed mobility training Focus in the POC in case she wishes to practice in future treatments: PT encouraged pt that sleeping in bed may be better for her back Precautions Lumbar Precautions Log Roll,No Twisting,Limit Bending,Lifting Restriction of 10 lbs,Gait Belt above Incisional Area Weight Bearing Status Weight Bearing Status Weight Bear as Tolerated Recommendations To Nursing Amount of Assist Needed Standby Assistance,1 Person Assist Discharge Recommendations PT Discharge Recommendations Home with 10/11 Assist Available,Outpatient PT Transportation Needs at Discharge Private Vehicle
[2023-01-22 12:07] LABS: Appearance Urine UA CLEAR; Bilirubin Urine UA NEGATIVE (NEGATIVE); Color Urine UA YELLOW; Glucose Urine UA NEGATIVE (Negative); Ketones Urine UA NEGATIVE (NEGATIVE); Leukocyte Esterase Urine UA TRACE (NEGATIVE); Nitrite Urine UA NEGATIVE (Negative); Occult Blood Urine UA TRACE-INTACT (Negative); Protein Urine UA NEGATIVE (Negative); Specific Gravity Urine UA <=1.005 (1.000-1.035); Urobilinogen Urine UA 0.2 E.U./dL (0.2)
[2023-01-22 12:16] LABS: pH Urine UA 5.5 (4.5-8.0)
[2023-01-22 12:26] LABS: Bacteria Urine None Seen; Culture Indicated Urine Specimen Cultured; RBC Urine None Seen (0-5/HPF); Squamous Epithelial Cell Urine None Seen (0-5/HPF); WBC Urine 0-1/HPF (0-5/HPF)
--- NOTE | 2023-01-22 12:52 | PC.NURSE ---
Day shift: Discharge instructions gone over with patient, all questions answered and patient and spouse stated understanding. Port de-accessed by RN Immanuel Lee. Galaviz removed this AM, pt voiding in toilet. Pt reported bladder pressure/pain prior to Galaviz removal. UA sent as patient states this is often her first sign of UTI. Though after Galaviz d/c'ed patient states more comfort. All belongings with patient. PCT Lucinda escorted patient to main entrance via wheelchair where her spouse will drive her home.
== END 2023-01-22 13:05 | disposition home or self-care (01) | DRG 460 ==
PROVIDERS: Physician Assistant; Admitting Provider Orthopaedic Surgery Orthopaedic Surgery of the Spine; PCP Physician Assistant; Referring Provider Orthopaedic Surgery Orthopaedic Surgery of the Spine; Visit Provider Orthopaedic Surgery Orthopaedic Surgery of the Spine
PROC: 0SG0071 Fusion of Lumbar Vertebral Joint with Autologous Tissue Substitute, Posterior Approach, Posterior Column, Open Approach (ICD-10-PCS; principal; 2023-01-21 13:15)
DX: T84.216A Breakdown (mechanical) of internal fixation device of vertebrae, initial encounter (principal); M96.0 Pseudarthrosis after fusion or arthrodesis; M48.061 Spinal stenosis, lumbar region without neurogenic claudication; T84.038A Mechanical loosening of other internal prosthetic joint, initial encounter; M96.1 Postlaminectomy syndrome, not elsewhere classified; E11.9 Type 2 diabetes mellitus without complications; F31.9 Bipolar disorder, unspecified; Z87.891 Personal history of nicotine dependence; Z79.84 Long term (current) use of oral hypoglycemic drugs
CPT/HCPCS: 36591; 72100; 76000; 81001; 82962; 85014; 85018; 87086; 97161; 97165; 97535; C1713; C9290; J0171; J0690; J1100; J1170; J1642; J2060; J2250; J2405; J2704